=== PATIENT | female | born 1940 | race African-American/Black ===

== ENCOUNTER 2018-07-30 19:45 | Observation (INO) | payer OTHER ==
--- NOTE | 2018-07-30 20:23 | PDOC ---
Attending Attestation - HPI HPI: 07/30/18 21:48 The patient is a 78 year old female, with a significant PMH of stroke with left leg deficit, dementia (does not know year at baseline), hypothyroidism, hypertension, hyperlipidemia, presents to the emergency department for evaluation s/p syncopal event this evening. As per patient's grandson, the patient was sitting on the couch when she lost consciousness for 5 minutes. The patient endorses feeling warm prior to the syncopal event. As per grandson, the patient mouth was closed and she was shaking a small amount during the episode. The patient at presentation reports she now feels fine. The patient denies chest pain, shortness of breath, headache and dizziness. Denies fever, chills, nausea, vomit, diarrhea and constipation. Denies dysuria, frequency, urgency and hematuria. Allergies: NKA Documentation prepared by Sourav Mclain, acting as medical recruiter for Laverne Elias MD. <Sourav Mclain - Last Filed: 07/30/18 21:48> - Resident Resident Name: Davis Sotomayor - ED Attending Attestation I have performed the following: I have examined & evaluated the patient, The case was reviewed & discussed with the resident, I agree w/resident's findings & plan, Exceptions are as noted - Physicial Exam PE: GENERAL: Awake, alert, and oriented to person and place (not time), in no acute distress HEAD: No signs of trauma EYES: PERRLA, EOMI, sclera anicteric, conjunctiva clear ENT: Auricles normal inspection, hearing grossly normal, nares patent, oropharynx clear without exudates. Moist mucosa NECK: Normal ROM, supple, no lymphadenopathy, JVD, or masses LUNGS: Breath sounds equal, clear to auscultation bilaterally. No wheezes, and no crackles HEART: Regular rate and rhythm, normal S1 and S2, no murmurs, rubs or gallops ABDOMEN: Soft, nontender, normoactive bowel sounds. No guarding, no rebound. No masses EXTREMITIES: Normal range of motion, no edema. No clubbing or cyanosis. No cords, erythema, or tenderness NEUROLOGICAL: Cranial nerves II through XII grossly intact. Normal speech, normal gait. Motor and sensation intact. SKIN: Warm, Dry, normal turgor, no rashes or lesions noted. - Medical Decision Making Pt with syncopal event, described to briefly lose consciousness, stop breathing , and slight shaking of hands. She does not recall the events. No prior history of seizures. Will obtain cardiac workup, but will also obtain CTH based on unusual description. <Laverne Elias - Last Filed: 07/30/18 22:35>
[2018-07-30] MEDS ORDERED: SODIUM CHLORIDE 500 ML IV STA ×2 (20:27→23:25)
--- NOTE | 2018-07-30 20:49 | PDOC ---
History of Present Illness - General Chief Complaint: Lightheaded Stated Complaint: DIZZINESS Time Seen by Provider: 07/30/18 19:57 History Source: Patient Exam Limitations: No Limitations - History of Present Illness Initial Comments: 07/30/18 20:43 Patient is 78F with history of stroke with L leg deficit, dementia (does not know year at baseline), hypothyroidism, htn, hld here today after she "passed out" this evening. Patient's grandson at bedside states that she was sitting on the couch when she became unconscious for about 5 minutes. They state her jaw was closed shut and was shaking a small amount. Denies post ictal period. Patient endorses a feeling of warmth before passing out. Denies fevers, chills, nausea, vomiting. Denies chest pain, shortness of breath. Denies abdominal pain , dysuria. Denies history of PE, leg swelling. Patient states that she feels fine now. Grandson reports that she's eating less today. Past History - Past Medical History Allergies/Adverse Reactions: Allergies Allergy/AdvReac Type Severity Reaction Status Date / Time No Known Allergies Allergy Verified 07/30/18 19:53 - Suicide/Smoking/Psychosocial Hx Smoking History: Never smoked Have you smoked in the past 12 months: No Information on smoking cessation initiated: No Hx Alcohol Use: No Drug/Substance Use Hx: No Review of Systems - Review of Systems Comments:: 07/30/18 20:49 GENERAL/CONSTITUTIONAL: No fever or chills. No weakness. HEAD, EYES, EARS, NOSE AND THROAT: No change in vision. No sore throat. CARDIOVASCULAR: No chest pain or shortness of breath RESPIRATORY: No cough, wheezing, or hemoptysis. GASTROINTESTINAL: No nausea, vomiting, diarrhea or constipation. GENITOURINARY: No dysuria, frequency, or change in urination. MUSCULOSKELETAL: No joint or muscle swelling or pain. No neck or back pain. SKIN: No rash NEUROLOGIC: No headache, vertigo, +loss of consciousness, no change in strength/ sensation. ENDOCRINE: No increased thirst. No abnormal weight change HEMATOLOGIC/LYMPHATIC: No anemia, easy bleeding, or history of blood clots. ALLERGIC/IMMUNOLOGIC: No hives or skin allergy. *Physical Exam - Vital Signs Last Vital Signs Temp Pulse Resp BP Pulse Ox 97.6 F 61 18 146/51 L 98 07/30/18 19:53 07/30/18 19:53 07/30/18 19:53 07/30/18 19:53 07/30/18 19:53 - Physical Exam Comments: 07/30/18 20:50 GENERAL: Awake, alert, and oriented to self/place, not to year, in no acute distress HEAD: No signs of trauma, normocephalic, atraumatic EYES: PERRLA, EOMI, sclera anicteric, conjunctiva clear ENT: Auricles normal inspection, hearing grossly normal, nares patent, oropharynx clear without exudates. Moist mucosa NECK: Normal ROM, supple, no lymphadenopathy, JVD, or masses LUNGS: No distress, speaks full sentences, clear to auscultation bilaterally HEART: Regular rate and rhythm, normal S1 and S2, no murmurs, rubs or gallops, peripheral pulses normal and equal bilaterally. ABDOMEN: Soft, nontender, normoactive bowel sounds. No guarding, no rebound. No masses EXTREMITIES: Normal inspection, Normal range of motion, no edema. No clubbing or cyanosis. NEUROLOGICAL: Cranial nerves II through XII grossly intact. Normal speech, 3/5 strength in L leg, otherwise 5/5 SKIN: Warm, Dry, normal turgor, no rashes or lesions noted. Moderate Sedation - Procedure Monitoring Vital Signs: Procedure Monitoring Vital Signs Temperature 97.6 F 07/30/18 19:53 Pulse Rate 61 07/30/18 19:53 Respiratory Rate 18 07/30/18 19:53 Blood Pressure 146/51 L 07/30/18 19:53 O2 Sat by Pulse Oximetry (%) 98 07/30/18 19:53 ED Treatment Course - LABORATORY CBC & Chemistry Diagram: 07/30/18 21:50 07/30/18 21:50 - RADIOLOGY Radiology Studies Ordered: Category Date Time Status HEAD CT WITHOUT CONTRAST [CT] Stat CT Scan 07/30/18 20:33 Ordered CHEST PA & LAT [RAD] Stat Radiology 07/30/18 20:27 Ordered Medical Decision Making - Medical Decision Making 07/30/18 20:51 Patient is 78F here today with syncope. Vitals normal and stable. DDx includes, but is not limited to: acs, arrhythmia, vasovagal. Will workup with cardiac labs , ct head, cxr. Likely admit. 07/30/18 23:22 CBC normal. CMP shows Cr of 2.9, BUN 52. Troponin undetectable. Patient and grandson state that she's never been told that she has kidney issues before. EKG shows normal sinus rhythm with rate of 68. No st elevations/depressions. Normal axis. Normal intervals. No significant t wave abnormalities. No signs of brugada, wpw, long qtc. Medicine paged. 07/31/18 00:05 Case d/w Dr Tyler. Obs tele. *DC/Admit/Observation/Transfer Diagnosis at time of Disposition: Syncope, AFSHAN (acute kidney injury) - Discharge Dispostion Disposition: HOME Condition at time of disposition: Stable Decision to Admit order: Yes - Referrals - Patient Instructions - Post Discharge Activity
[2018-07-30 21:55] LABS: BASO % 0.4 % (0-2.0); EOS % 0.8 % (0-4.5); HEMATOCRIT 32.3 % (32.4-45.2); HEMOGLOBIN 11.1 GM/dL (10.7-15.3); LYMPH % 15.8 % (8-40); MCH 31.9 pg (25.7-33.7); MCHC 34.5 g/dl (32.0-36.0); MEAN CELL VOLUME 92.7 fl (80-96); MEAN PLT VOLUME 12.1 fl (7.5-11.1); MONO % 9.2 % (3.8-10.2); NEUT % 73.8 % (42.8-82.8); PLATELET COUNT 129 K/MM3 (134-434); RBC 3.48 M/mm3 (3.60-5.2); RDW 14.5 % (11.6-15.6)
[2018-07-30 22:08] LABS: INR 1.08 (0.83-1.09); PROTHROMBIN TIME (PATIENT) 12.8 SEC (9.7-13.0)
[2018-07-30 22:58] LABS: ALBUMIN 4.2 g/dl (3.4-5.0); ALK PHOS 62 U/L (45-117); ANION GAP 9 MMOL/L (8-16); BILIRUBIN,TOTAL 0.5 mg/dL (0.2-1); BLOOD UREA NITROGEN 52 mg/dL (7-18); CHLORIDE 107 mmol/L (98-107); CO2 21 mmol/L (21-32); CREATININE 2.9 mg/dL (0.55-1.3); GLUCOSE,RANDOM 130 mg/dL (74-106); MAGNESIUM 2.3 mg/dL (1.8-2.4); POTASSIUM 5.1 mmol/L (3.5-5.1); SGOT/AST 19 U/L (15-37); SGPT/ALT 23 U/L (13-61); SODIUM 137 mmol/L (136-145); TOT PROT 7.4 g/dl (6.4-8.2)
--- NOTE | 2018-07-30 23:51 | PN ---
Teaching Attending Note Name of Resident: Valerie Tyler ATTENDING PHYSICIAN STATEMENT I saw and evaluated the patient. I reviewed the resident's note and discussed the case with the resident. I agree with the resident's findings and plan as documented. CC: Syncope 2PM 07/30 when she was watching TV following dizziness. SUBJECTIVE: Seen and examined; please see resident note for additional historical information. She experienced a syncopal episode with prodromal sx of warmth, dizziness, headache when she was sitting in a chair watching TV (no distressing programming on). She had LOC for 'a minute or two' and came to without any confusion, tongue biting, incontenance, involuntary movement. She never had these sx before and this worried her. Grandson encouraged her to go to the hospital. Denies any CP, pressure, etc. In the ER she was bolused before orthostatics were checked. Mentioned b/l LE tenderness; no new edema (has chronic dependent edema) She is afebrile and hemodynamically stable. 10 sys ROS done and negative aside from HPI PMH and PSH reviewed (CVA, stated dementia, HTN, HLD, Hypothyroidism; prior thyroid surgery) FH asked and noncontributory Socially Medication list reviewed and is pending reconciliation OBJECTIVE: VS, labs, imaging reviewed NAD, AAO, resting in bed Labs show plts 129, Cr. 2.9, glu 130, CK 204. Negative troponin. EKG with NSR, LVH CT head prelim read shows no acute brain abnormaliies; age related changes and chronic R-occipital lobe infarct. ASSESSMENT AND PLAN: Patient presents with syncope; found to have elevated creatinine 1) Syncope -Check orthostatics, gently hydrate, monitor on telemetry -EKG negative, CT head negative. -Check echocardiogram; given HLD and old CVA has risks for vascular disease so check carotid duplex -Potential issue from medications but she doesn't know what she is on; we will phone her family to confirm med list and assess if any of these could be implicated. 2) Elevated Cr -Obtain FeUrea as not known if on diuretics, check Leonardo -obtain old records to compare to her baseline -Consult nephrology in AM 3) Thrombocytopenia -Check old records for baseline -Check Hep C and HIV; trend CBC. Likely can followup OP 4) Old CVA -CT shows chronic R-occipital infarct 5) HTN -Reconcile medications and continue what is clinically appropriate 6) HLD -Reconcile home meds; followup lipid pannel as OP FENA Full Code
[2018-07-31] MEDS ORDERED: SODIUM CHLORIDE 1,000 ML IV SCH (04:30)
--- NOTE | 2018-07-31 04:42 | HP ---
CHIEF COMPLAINT: syncope PCP: HISTORY OF PRESENT ILLNESS: 78 y/o F with PMH stroke (w resultant LLE weakness), ?dementia, hypothyroidism, HTN, HLD, who presents to the ED c/o syncopal event that happened at 2pm yesterday (07/30). States that she was sitting on a chair watching TV (law and order) when she felt warm, dizzy and developed a bad, global GOMEZ. Mentions that she kept telling her grandson she didn't feel right. Soon after, pt had LOC while still sitting for 1-2 minutes. Grandson told pt that she did not have tonic-clonic movements, tongue biting, or urinary incontinence. No chest pain. States that after the syncopal ep, she felt a knot in her R side which moved to her L. Yesterday AM, she also did not eat breakfast and felt very thirsty, asking her son for a drink of ice water. Denies current GOMEZ, fever, chills, SOB, chest pain or pressure, or changes in urinary or bowel function. Lives at home with her grandson. Uses a walker to ambulate. 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 Smoking: attempted in past however did not enjoy Alcohol: denies Drugs: denies Family History: mother- "blood clot in brain" Allergies No Known Allergies Allergy (Verified 07/30/18 19:53) HOME MEDICATIONS: does not know home meds, did not bring with her. need to call pharmacy, family and med rec REVIEW OF SYSTEMS CONSTITUTIONAL: Absent: fever, chills, diaphoresis, generalized weakness, malaise, loss of appetite, weight change HEENT: Absent: rhinorrhea, nasal congestion, throat pain, throat swelling, difficulty swallowing, mouth swelling, ear pain, eye pain, visual changes CARDIOVASCULAR: Absent: chest pain, syncope, palpitations, irregular heart rate, lightheadedness , peripheral edema RESPIRATORY: Absent: cough, shortness of breath, dyspnea with exertion, orthopnea, wheezing, stridor, hemoptysis GASTROINTESTINAL: Absent: abdominal pain, abdominal distension, nausea, vomiting, diarrhea, constipation, melena, hematochezia GENITOURINARY: Absent: dysuria, frequency, urgency, hesitancy, hematuria, flank pain, genital pain MUSCULOSKELETAL: Absent: myalgia, arthralgia, joint swelling, back pain, neck pain SKIN: Absent: rash, itching, pallor HEMATOLOGIC/IMMUNOLOGIC: Absent: easy bleeding, easy bruising, lymphadenopathy, frequent infections ENDOCRINE: Absent: unexplained weight gain, unexplained weight loss, heat intolerance, cold intolerance NEUROLOGIC: +GOMEZ, syncope Absent: headache, focal weakness or paresthesias, dizziness, unsteady gait, seizure, mental status changes, bladder or bowel incontinence PSYCHIATRIC: Absent: anxiety, depression, suicidal or homicidal ideation, hallucinations. PHYSICAL EXAMINATION Vital Signs 07/31/18 04:24 Temperature 98.0 F Pulse Rate Pulse Rate [ 64 Right Radial] Respiratory 17 Rate Blood Pressure Blood Pressure 150/64 [Left Arm] O2 Sat by Pulse 97 Oximetry (%) GENERAL: Very pleasant. Awake, alert, and fully oriented, in no acute distress. HEAD: Normal with no signs of trauma. EYES: Pupils equal, round and reactive to light, extraocular movements intact, sclera anicteric, conjunctiva clear. EARS, NOSE, THROAT: Ears normal, nares patent, oropharynx clear without exudates. Dry mucous membranes. NECK: Normal range of motion, supple. +horizontal scar from past thyroid sx LUNGS: Breath sounds equal, clear to auscultation bilaterally. No wheezes, and no crackles. No accessory muscle use. HEART: Regular rate and rhythm, normal S1 and S2 without murmur, rub or gallop. ABDOMEN: Soft, nontender, not distended, normoactive bowel sounds, no guarding, no rebound, no masses. LOWER EXTREMITIES: 2+ pt pulses, warm, well-perfused. With edema. states she has chronically NEUROLOGICAL: Cranial nerves II-XII intact. Sensation intact. PSYCHIATRIC: Cooperative. Good eye contact. Laboratory Results - last 24 hr 07/30/18 07/30/18 07/30/18 21:50 21:50 21:50 WBC 6.0 RBC 3.48 L Hgb 11.1 Hct 32.3 L MCV 92.7 MCH 31.9 MCHC 34.5 RDW 14.5 Plt Count 129 L MPV 12.1 H Absolute Neuts (auto) 4.4 Neutrophils % 73.8 Lymphocytes % 15.8 Monocytes % 9.2 Eosinophils % 0.8 Basophils % 0.4 Nucleated RBC % 0 PT with INR 12.80 INR 1.08 Sodium 137 Potassium 5.1 Chloride 107 Carbon Dioxide 21 Anion Gap 9 BUN 52 H Creatinine 2.9 H Creat Clearance w eGFR 15.69 Random Glucose 130 H Calcium 9.0 Magnesium 2.3 Total Bilirubin 0.5 AST 19 ALT 23 Alkaline Phosphatase 62 Creatine Kinase 304 H Creatine Kinase Index 1.0 CK-MB (CK-2) 3.3 Troponin I < 0.02 Total Protein 7.4 Albumin 4.2 EKG: NSR, with LVH as seen in avL. Qtc 442ms Head CT: no acute path; chronic R occipital infarct. however pending official report ASSESSMENT/PLAN: 78 y/o F with PMH stroke (w resultant LLE weakness), ?dementia, hypothyroidism, HTN, HLD, who presents to the ED c/o syncopal event that happened at 2pm yesterday (07/30). #Syncope -possible that it is vasovagal as endorsed GOMEZ, dizziness, feeling warm, thirsty prior to event. however also possible cardiogenic -will check ECHO to check valvular fnc -carotid duplex as pt with HLD, old stroke -orthostatics, IVF -confirm med list to determine if polypharmacy or drug interactions -tele monitoring #Elevated Cr: ?AFSHAN, ?CKD -unknown baseline; will need to get files from PMD -trend Cr -will give IVF. calculate Fena, renal sono -nephro consult; Dr. Anthony #Thrombocytopenia -without sepsis -f/u hep C, HIV testing #HTN-uncontrolled -c/w vaseretic #HLD -need to verify home meds #hypothyroidism -f/u TSH -c/w synthroid #F/E/N IV NS 100 cc/hr continue to follow lytes sodium controlled diet #PPX SCD's, early ambulation #Dispo tele obs Visit type - Emergency Visit Emergency Visit: Yes ED Registration Date: 07/30/18 Care time: The patient presented to the Emergency Department on the above date and was hospitalized for further evaluation of their emergent condition. - New Patient This patient is new to me today: Yes Date on this admission: 07/31/18 - Critical Care Critical Care patient: No
[2018-07-31 06:15] LABS: BASO % 0.4 % (0-2.0); EOS % 2.1 % (0-4.5); HEMATOCRIT 30.9 % (32.4-45.2); HEMOGLOBIN 10.1 GM/dL (10.7-15.3); LYMPH % 31.6 % (8-40); MCH 30.4 pg (25.7-33.7); MCHC 32.6 g/dl (32.0-36.0); MEAN CELL VOLUME 93.4 fl (80-96); MEAN PLT VOLUME 11.8 fl (7.5-11.1); MONO % 10.8 % (3.8-10.2); NEUT % 55.1 % (42.8-82.8); PLATELET COUNT 103 K/MM3 (134-434); RBC 3.31 M/mm3 (3.60-5.2); RDW 14.8 % (11.6-15.6); WHITE BLOOD COUNT 5.2 K/mm3 (4.0-10.0)
[2018-07-31 06:33] LABS: ANION GAP 9 MMOL/L (8-16); BLOOD UREA NITROGEN 49 mg/dL (7-18); CALCIUM 8.5 mg/dL (8.5-10.1); CHLORIDE 112 mmol/L (98-107); CO2 21 mmol/L (21-32); CREATININE 2.5 mg/dL (0.55-1.3); GLUCOSE,RANDOM 127 mg/dL (74-106); MAGNESIUM 2.1 mg/dL (1.8-2.4); PHOSPHOROUS 3.7 mg/dL (2.5-4.9); SODIUM 141 mmol/L (136-145)
[2018-07-31] MEDS: LEVOTHYROXINE NA 75 MCG TABLET (FP) PO SCH (07:56)
[2018-07-31] MEDS ORDERED: LEVOTHYROXINE NA 25 MCG TABLET (FP) ONE (07:59)
[2018-07-31 09:08] LABS: URINE APPEARANCE CLEAR; URINE BILIRUBIN NEGATIVE (<2.0 mg/dL); URINE COLOR LTYELLOW; URINE GLUCOSE (UA) NEGATIVE (NEGATIVE); URINE KETONE NEGATIVE (NEGATIVE); URINE LEUK ESTERASE 1+ (NEGATIVE); URINE NITRITE NEGATIVE (NEGATIVE); URINE PROTEIN NEGATIVE (NEGATIVE); URINE UROBILINOGEN NEGATIVE mg/dL (0.2-1.0)
[2018-07-31 09:26] LABS: EPI CELLS RARE /HPF (FEW); URINE MUCUS RARE
[2018-07-31] MEDS ORDERED: HYDROCHLOROTHIAZIDE 25 MG TABLET (FP) PO SCH (10:00)
[2018-07-31 10:41] LABS: URINE CREATININE 91.5 mg/dL (30-50)
[2018-07-31] MEDS: amLODIPine BESYLATE 5 MG TABLET (FP) PO SCH (11:30)
[2018-07-31] MEDS: ENALAPRIL MALEATE 10 MG TABLET (FP) PO SCH (11:30)
--- NOTE | 2018-07-31 12:23 | PN ---
Teaching Attending Note Name of Resident: Valerie Tyler ATTENDING PHYSICIAN STATEMENT I saw and evaluated the patient. I reviewed the resident's note and discussed the case with the resident. I agree with the resident's findings and plan as documented. Evaluated the patient today. She is a 78Y/O F hx OF htn, hx of CVA in the past, She states that she was in her USH till yesterday. She was in her USH, sitting in the chair, suddenly with no trigger, developed lightheadedness, feeling hot in her face and head, denies any palpitation, N/V, SOB prior to the episode. She felt lightheaded after that episode tried to sit up and ask the grandson to bring her some ice water but she had passed out before she drank the water, for couple of minutes. no seizure like activity was observed. She states that she has had never had similar episode before. denies any trigger for the episode.states that since she has been told that she has had a CVA she is not stable and does not walk much and her ET has decreased for 1 year as she develops OSORIO. She also states that has had 2 episode of feeling fluttering in the left chest wall for couple of seconds in the past 3 days.but has had no complaints with them denies any change in her medication, diet, weight loss, no GI/ complaints She is adherent to her Bp meds, not on statin and ASA. denies hx of GI complaints in the past. She is in no distress at this time. pHex:.vs She is in no distress Talks in full sentences Has no orthosthatic changes in VS CVS:S1S2, Could not appreciate any murmur CTAB Abd: BS NT/ND 2+ DP pulses 1+ tp b/l EQUAL denies any change in her strength in the limbs Last Vital Signs Temp Pulse Resp BP Pulse Ox 98.5 F 60 18 143/63 99 07/31/18 11:00 07/31/18 11:00 07/31/18 11:00 07/31/18 11:00 07/31/18 11:00 CBCD WBC 5.2 K/mm3 (4.0-10.0) 07/31/18 05:49 RBC 3.31 M/mm3 (3.60-5.2) L 07/31/18 05:49 Hgb 10.1 GM/dL (10.7-15.3) L 07/31/18 05:49 Hct 30.9 % (32.4-45.2) L 07/31/18 05:49 MCV 93.4 fl (80-96) 07/31/18 05:49 MCHC 32.6 g/dl (32.0-36.0) 07/31/18 05:49 RDW 14.8 % (11.6-15.6) 07/31/18 05:49 Plt Count 103 K/MM3 (134-434) L D 07/31/18 05:49 MPV 11.8 fl (7.5-11.1) H 07/31/18 05:49 CMP Sodium 141 mmol/L (136-145) 07/31/18 05:49 Potassium 4.0 mmol/L (3.5-5.1) 07/31/18 05:49 Chloride 112 mmol/L (98-107) H 07/31/18 05:49 Carbon Dioxide 21 mmol/L (21-32) 07/31/18 05:49 Anion Gap 9 MMOL/L (8-16) 07/31/18 05:49 BUN 49 mg/dL (7-18) H 07/31/18 05:49 Creatinine 2.5 mg/dL (0.55-1.3) H 07/31/18 05:49 Creat Clearance w eGFR 18.63 (>60) 07/31/18 05:49 Random Glucose 127 mg/dL (74-106) H 07/31/18 05:49 Calcium 8.5 mg/dL (8.5-10.1) 07/31/18 05:49 Total Bilirubin 0.5 mg/dL (0.2-1) 07/30/18 21:50 AST 19 U/L (15-37) 07/30/18 21:50 ALT 23 U/L (13-61) 07/30/18 21:50 Alkaline Phosphatase 62 U/L (45-117) 07/30/18 21:50 Total Protein 7.4 g/dl (6.4-8.2) 07/30/18 21:50 Albumin 4.2 g/dl (3.4-5.0) 07/30/18 21:50 CARDIAC ENZYMES Creatine Kinase 305 IU/L (26-192) H 07/31/18 10:00 Troponin I < 0.02 ng/ml (0.00-0.05) 07/31/18 10:00 Home Medications Medication Instructions Recorded Amlodipine Besylate 5 mg PO DAILY 07/31/18 Enalapril/Hydrochlorothiazide 1 each PO DAILY 07/31/18 [Vaseretic 10-25 mg Tablet] Levothyroxine Sodium [Levo-T] 75 mcg PO DAILY 07/31/18 could not find the EKG in the patient chart hct: NO NEW ISCHEMIA A&P: 78 Y/o F W HTN, hx OF CVS, hypothyroidism, P/W an episode of LOC most likely Syncope. Troponin (-)x3, pending EKG follow up. pending TTE, admit to tele and holter monitoring, cardiology consult, less likely to be hypoglycemia, hypotension and dehydration as her symptoms resolved with no intervention which makes arrhythmia most likely cause. renal failure: Has elevated BUN/CR which is improving with hydration, will give another 1l NS Katina nad recheck the BMP in the evening. Hypothyroidism: will C/W home medication HX pof CVA and hTN: not on statin and not on aspiring: will start on ASA and low dose statin, sending lipid profile FC DIet: cardiac Dispo: home after further evaluation
[2018-07-31] MEDS ORDERED: SODIUM CHLORIDE 1,000 ML IV STA ×2 (12:48→12:50)
--- NOTE | 2018-07-31 13:25 | EKG ---
Test Reason : Blood Pressure : / mmHG Vent. Rate : 055 BPM Atrial Rate : 055 BPM P-R Int : 238 ms QRS Dur : 114 ms QT Int : 440 ms P-R-T Axes : 059 -23 019 degrees QTc Int : 420 ms SINUS BRADYCARDIA WITH 1ST DEGREE A-V BLOCK MODERATE VOLTAGE CRITERIA FOR LVH, MAY BE NORMAL VARIANT BORDERLINE ECG WHEN COMPARED WITH ECG OF 30-JUL-2018 23:15, IN INTERVAL HAS INCREASED Confirmed by COREEN BERMAN, FRANSICO ([id number]) on 07/31/2018 1:25:19 PM Referred By: Agustin WATT Confirmed By:FRANSICO ANGELA MD
--- NOTE | 2018-07-31 13:26 | EKG ---
Test Reason : Blood Pressure : / mmHG Vent. Rate : 068 BPM Atrial Rate : 068 BPM P-R Int : 206 ms QRS Dur : 104 ms QT Int : 416 ms P-R-T Axes : 036 -23 039 degrees QTc Int : 442 ms POOR DATA QUALITY, INTERPRETATION MAY BE ADVERSELY AFFECTED NORMAL SINUS RHYTHM VOLTAGE CRITERIA FOR LEFT VENTRICULAR HYPERTROPHY ABNORMAL ECG NO PREVIOUS ECGS AVAILABLE Confirmed by FRANSCIO ANGELA MD ([id number]) on 07/31/2018 1:26:37 PM Referred By: Confirmed By:FRANSICO ANGELA MD
[2018-07-31] MEDS: ASPIRIN COATED 81 MG TABLET.EC PO SCH (14:59)
--- NOTE | 2018-07-31 18:10 | CONSULT ---
Consult Consult Specialty:: Nephrology Reason for Consultation:: AFSHAN - History of Present Illness Chief Complaint: syncope History of Present Illness: Pt is a 78 year old female with pmhx of CVA, dementia, hypothyroidism, HTN, and HLD who presents to the ER after a syncopal episode. She remembers passing out. She lost consciousness of about 5 minutes. I was called to evaluate her for elevated. She does not know if she has history of CKD. There are no old labs in the system to compare to. She denies dysuria or hematuria. She denies chest pain or shortness of breath. 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 Cardio/Vascular: Yes: HTN Endocrine: Yes: Hypothyroidism - Alcohol/Substance Use Hx Alcohol Use: No - Smoking History Smoking history: Never smoked Have you smoked in the past 12 months: No Home Medications - Allergies Allergies/Adverse Reactions: Allergies Allergy/AdvReac Type Severity Reaction Status Date / Time No Known Allergies Allergy Verified 07/30/18 19:53 - Home Medications Home Medications: Ambulatory Orders Amlodipine Besylate 5 mg PO DAILY 07/31/18 Enalapril/Hydrochlorothiazide [Vaseretic 10-25 mg Tablet] 1 each PO DAILY Levothyroxine Sodium [Levo-T] 75 mcg PO DAILY 07/31/18 Family Disease History - Family Disease History Family History: Denies Review of Systems - Review of Systems Constitutional: reports: No Symptoms Eyes: reports: No Symptoms HENT: reports: No Symptoms Neck: reports: No Symptoms Cardiovascular: reports: No Symptoms Respiratory: reports: No Symptoms Gastrointestinal: reports: No Symptoms Genitourinary: reports: No Symptoms Musculoskeletal: reports: No Symptoms Integumentary: reports: No Symptoms Neurological: reports: Change in LOC Endocrine: reports: No Symptoms Hematology/Lymphatic: reports: No Symptoms Psychiatric: reports: No Symptoms Physical Exam Vital Signs: Vital Signs Temperature 98.5 F 07/31/18 11:00 Pulse Rate 60 07/31/18 11:00 Respiratory Rate 18 07/31/18 11:00 Blood Pressure 143/63 07/31/18 11:00 O2 Sat by Pulse Oximetry (%) 99 07/31/18 11:00 Constitutional: Yes: Calm Eyes: Yes: Conjunctiva Clear HENT: Yes: Atraumatic Neck: Yes: Supple Cardiovascular: Yes: S1, S2 Respiratory: Yes: CTA Bilaterally Gastrointestinal: Yes: Soft Renal/: Yes: WNL Musculoskeletal: Yes: WNL Edema: No Neurological: Yes: Oriented, Confusion Psychiatric: Yes: Oriented Labs: CBC, BMP 07/31/18 05:49 07/31/18 05:49 Laboratory Tests 07/30/18 07/30/18 07/31/18 21:50 21:50 05:49 Hgb 11.1 10.1 L Potassium Chloride Creatinine 2.9 H Urine Protein Urine Blood 07/31/18 07/31/18 05:49 08:40 Hgb Potassium 4.0 Chloride 112 H Creatinine 2.5 H Urine Protein Negative Urine Blood Negative Imaging - Results Ultrasound: Report Reviewed Problem List - Problems (1) HTN (hypertension) Code(s): I10 - ESSENTIAL (PRIMARY) HYPERTENSION (2) AFSHAN (acute kidney injury) Code(s): N17.9 - ACUTE KIDNEY FAILURE, UNSPECIFIED (3) Syncope Code(s): R55 - SYNCOPE AND COLLAPSE Assessment/Plan Current Medications Generic Name Dose Route Start Last Admin Trade Name Magnoq PRN Reason Stop Dose Admin Amlodipine Besylate 5 mg 07/31/18 10:00 07/31/18 11:30 Norvasc - PO 5 mg DAILY [facility] Administration Aspirin 81 mg 07/31/18 13:00 07/31/18 14:59 Ecotrin - PO 81 mg DAILY OLGA Administration Atorvastatin Calcium 40 mg 07/31/18 22:00 Lipitor - PO HS OLGA Enalapril Maleate 10 mg 07/31/18 10:00 07/31/18 11:30 Vasotec - PO 10 mg DAILY OL[facility] Administration Hydrochlorothiazide 25 mg 07/31/18 10:00 07/31/18 11:30 Hctz - PO 25 mg DAILY OLGA Administration Sodium Chloride 1,000 mls @ 100 mls/hr 07/31/18 04:30 07/31/18 04:51 Normal Saline - IV 100 mls/hr ASDIR OLGA Administration Levothyroxine Sodium 75 mcg 07/31/18 07:15 07/31/18 07:56 Synthroid - PO 75 mcg DAILY@0700 OL[facility] Administration Impression 1. AFSHAN 2. HTN 3. syncope 4. dementia 5. hx cva Plan - hold hctz as she is getting fluids - renal function is improving - can change fluids to 1/2 ns - kidney echogenic on ultrasound - ua negative for blood or protein - repeat labs in am - will need outpt renal workup
[2018-07-31] MEDS ORDERED: SODIUM CHLORIDE 0.45% 1,000 ML IV SCH (18:15)
[2018-07-31 19:35] LABS: ANION GAP 6 MMOL/L (8-16); BLOOD UREA NITROGEN 40 mg/dL (7-18); CALCIUM 8.7 mg/dL (8.5-10.1); CHLORIDE 114 mmol/L (98-107); CO2 24 mmol/L (21-32); CREATININE 2.3 mg/dL (0.55-1.3); GLUCOSE,RANDOM 95 mg/dL (74-106); POTASSIUM 4.5 mmol/L (3.5-5.1); SODIUM 144 mmol/L (136-145)
[2018-08-01] MEDS ORDERED: ATORVASTATIN CA 40 MG TABLET (FP) ONE (00:38)
[2018-08-01] MEDS: ATORVASTATIN CA 40 MG TABLET (FP) PO SCH ×2 (00:38→21:32)
[2018-08-01 06:16] LABS: ANION GAP 7 MMOL/L (8-16); BLOOD UREA NITROGEN 34 mg/dL (7-18); CALCIUM 8.7 mg/dL (8.5-10.1); CHLORIDE 112 mmol/L (98-107); CO2 23 mmol/L (21-32); CREATININE 1.8 mg/dL (0.55-1.3); GLUCOSE,RANDOM 90 mg/dL (74-106); POTASSIUM 4.7 mmol/L (3.5-5.1); SODIUM 142 mmol/L (136-145)
[2018-08-01 08:47] LABS: CHOLESTEROL 261 mg/dL (50-200); HDL CHOLESTEROL 32 mg/dL (40-60); LDL CHOLESTEROL (ONLY DFH) 213 mg/dl (0-100); TRIGLYCERIDES 82 mg/dL (0-150)
--- NOTE | 2018-08-01 11:24 | PN ---
Physical Exam: SUBJECTIVE: Patient seen and examined OBJECTIVE: Vital Signs Period Temp Pulse Resp BP Sys/Carmen Pulse Ox Last 24 Hr 98.6 F 58 18 150/58 99 GENERAL: The patient is awake, alert, and fully oriented, in no acute distress. HEAD: Normal with no signs of trauma. CVS:S1S2 CTAB ABD: BS+ NT/ND EXT: NO EDEMA 1+ DP pulses B/L Laboratory Results - last 24 hr 07/31/18 07/31/18 08/01/18 10:00 18:50 05:08 Sodium 144 142 Potassium 4.5 4.7 Chloride 114 H 112 H Carbon Dioxide 24 23 Anion Gap 6 L 7 L BUN 40 H 34 H Creatinine 2.3 H 1.8 H Creat Clearance w eGFR 20.51 27.21 Random Glucose 95 90 Calcium 8.7 8.7 Creatine Kinase 305 H Creatine Kinase Index 1.0 CK-MB (CK-2) 3.2 Troponin I < 0.02 Triglycerides 82 Cholesterol 261 H Total LDL Cholesterol 213 H HDL Cholesterol 32 L Active Medications Generic Name Dose Route Start Last Admin Trade Name Magnoq PRN Reason Stop Dose Admin Amlodipine Besylate 5 mg 07/31/18 10:00 07/31/18 11:30 Norvasc - PO 5 mg DAILY OLGA Administration Aspirin 81 mg 07/31/18 13:00 07/31/18 14:59 Ecotrin - PO 81 mg DAILY OLGA Administration Atorvastatin Calcium 40 mg 07/31/18 22:00 08/01/18 00:38 Lipitor - PO 40 mg HS OLGA Administration Enalapril Maleate 10 mg 07/31/18 10:00 07/31/18 11:30 Vasotec - PO 10 mg DAILY OLGA Administration Levothyroxine Sodium 75 mcg 07/31/18 07:15 07/31/18 07:56 Synthroid - PO 75 mcg DAILY@0700 OLGA Administration ASSESSMENT/PLAN: 78 Y/o F W HTN, hx OF CVS, hypothyroidism, P/W an episode of LOC most likely Syncope. Troponin (-)x3, pending EKG follow up. pending TTE, admit to tele and holter monitoring, cardiology consult, less likely to be hypoglycemia, hypotension and dehydration as her symptoms resolved with no intervention which makes arrhythmia most likely cause. renal failure: Has elevated BUN/CR which is improving with hydration, will hold diuretics and ACEI at this time and will restart likely tomorrow after BMP further improves. nephrology recs appreciated. will have her F/U as O.P with nephro. Hypothyroidism: will C/W home medication HX of CVA and hTN: not on statin and not on aspirin: has been started on ASA and low dose statin(07/31) HLd: lipid profile ABML will C/W atorvastatin 40 mg Qhs at this time. FC DIet: cardiac Dispo: home after further evaluation Visit type - Emergency Visit Emergency Visit: No - New Patient This patient is new to me today: No - Critical Care Critical Care patient: No - Discharge Referral Referred to [facility] Med P.C[facility] No
[2018-08-01] MEDS ORDERED: ENALAPRIL MALEATE 5 MG TABLET (FP) ONE (12:41)
[2018-08-01] MEDS ORDERED: amLODIPine BESYLATE 5 MG TABLET (FP) ONE (12:41)
[2018-08-01] MEDS ORDERED: ASPIRIN COATED 81 MG TABLET.EC ONE (12:41)
[2018-08-01] MEDS ORDERED: LEVOTHYROXINE NA 25 MCG TABLET (FP) ONE (12:42)
[2018-08-01] MEDS: LEVOTHYROXINE NA 75 MCG TABLET (FP) PO SCH (13:44)
[2018-08-01] MEDS: ASPIRIN COATED 81 MG TABLET.EC PO SCH (13:44)
[2018-08-01] MEDS: amLODIPine BESYLATE 5 MG TABLET (FP) PO SCH (13:44)
[2018-08-01] MEDS: ENALAPRIL MALEATE 10 MG TABLET (FP) PO SCH (13:44)
[2018-08-01 14:41] VITALS: BMI 27.3
--- NOTE | 2018-08-01 15:00 | PN ---
Progress Note, Physician History of Present Illness: Pt seen and examined at bedside. She is awake and alert. She is eager to go home. She denies shortness of breath. - Current Medication List Current Medications: Active Medications Amlodipine Besylate (Norvasc -) 5 mg PO DAILY [facility] Last Admin: 08/01/18 13:44 Dose: 5 mg Aspirin (Ecotrin -) 81 mg PO DAILY [facility] Last Admin: 08/01/18 13:44 Dose: 81 mg Atorvastatin Calcium (Lipitor -) 40 mg PO HS [facility] Last Admin: 08/01/18 00:38 Dose: 40 mg Enalapril Maleate (Vasotec -) 10 mg PO DAILY [facility] Last Admin: 08/01/18 13:44 Dose: 10 mg Levothyroxine Sodium (Synthroid -) 75 mcg PO DAILY@0700 [facility] Last Admin: 08/01/18 13:44 Dose: 75 mcg - Objective Vital Signs: Vital Signs Temperature 98.6 F 07/31/18 17:35 Pulse Rate 72 08/01/18 12:27 Respiratory Rate 18 08/01/18 12:27 Blood Pressure 142/80 08/01/18 12:27 O2 Sat by Pulse Oximetry (%) 99 07/31/18 17:35 Constitutional: Yes: Calm Eyes: Yes: Conjunctiva Clear HENT: Yes: Atraumatic Neck: Yes: Supple Cardiovascular: Yes: S1, S2 Respiratory: Yes: CTA Bilaterally Gastrointestinal: Yes: Soft Genitourinary: Yes: WNL Musculoskeletal: Yes: WNL Neurological: Yes: Oriented Psychiatric: Yes: Oriented Labs: CBC, BMP 07/31/18 05:49 08/01/18 05:08 INR, PTT INR 1.08 (0.83-1.09) 07/30/18 21:50 Problem List - Problems (1) HTN (hypertension) Code(s): I10 - ESSENTIAL (PRIMARY) HYPERTENSION (2) AFSHAN (acute kidney injury) Code(s): N17.9 - ACUTE KIDNEY FAILURE, UNSPECIFIED (3) Syncope Code(s): R55 - SYNCOPE AND COLLAPSE Assessment/Plan Current Medications Generic Name Dose Route Start Last Admin Trade Name Freq PRN Reason Stop Dose Admin Amlodipine Besylate 5 mg 07/31/18 10:00 08/01/18 13:44 Norvasc - PO 5 mg DAILY [facility] Administration Aspirin 81 mg 07/31/18 13:00 08/01/18 13:44 Ecotrin - PO 81 mg DAILY [facility] Administration Atorvastatin Calcium 40 mg 07/31/18 22:00 08/01/18 00:38 Lipitor - PO 40 mg HS OLGA Administration Enalapril Maleate 10 mg 07/31/18 10:00 08/01/18 13:44 Vasotec - PO 10 mg DAILY [facility] Administration Levothyroxine Sodium 75 mcg 07/31/18 07:15 08/01/18 13:44 Synthroid - PO 75 mcg DAILY@0700 [facility] Administration Impression 1. AFSHAN 2. HTN 3. syncope 4. dementia 5. hx cva Plan - renal function is improving - repeat labs in am - bp is stable - will keep thiazide on hold - kidney echogenic on ultrasound - ua negative for blood or protein - will need outpt renal workup
--- NOTE | 2018-08-01 16:58 | CON.CARD ---
Consult Consult Specialty:: Cardiology Reason for Consultation:: Syncope - History of Present Illness Chief Complaint: LOC History of Present Illness: This is a 78 year old female with a PMH of a stroke ith left leg deficit, dementia (does not know year at baseline), hypothyroidism, hypertension, and hyperlipidemia. She was with her grandson, and was sitting on the couch, apparently she had a LOC for five minutes but does not recall the event. As per grandson, the patient mouth was closed and she was shaking a small amount during the episode. The patient remains asymptomatic. BUN was 52 and Cr 2.9 on admission. 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 Cardio/Vascular: Yes: HTN ...: No Endocrine: Yes: Hypothyroidism - Alcohol/Substance Use Hx Alcohol Use: No - Smoking History Smoking history: Never smoked Have you smoked in the past 12 months: No Home Medications - Allergies Allergies/Adverse Reactions: Allergies Allergy/AdvReac Type Severity Reaction Status Date / Time No Known Allergies Allergy Verified 07/30/18 19:53 - Home Medications Home Medications: Ambulatory Orders Amlodipine Besylate 5 mg PO DAILY 07/31/18 Enalapril/Hydrochlorothiazide [Vaseretic 10-25 mg Tablet] 1 each PO DAILY Levothyroxine Sodium [Levo-T] 75 mcg PO DAILY 07/31/18 Vital Signs: Vital Signs Temperature 98.6 F 07/31/18 17:35 Pulse Rate 72 08/01/18 12:27 Respiratory Rate 18 08/01/18 12:27 Blood Pressure 142/80 08/01/18 12:27 O2 Sat by Pulse Oximetry (%) 99 07/31/18 17:35 Constitutional: Yes: No Distress Eyes: Yes: WNL HENT: Yes: WNL Respiratory: Yes: CTA Bilaterally Gastrointestinal: Yes: Normal Bowel Sounds Cardiovascular: Yes: Regular Rate and Rhythm Heart Sounds: Yes: S1, S2 (No MRHG) Extremities: Yes: WNL Edema: No Neurological: Yes: Alert (Past deficits) - Other Data Labs, Other Data: CBC, BMP 07/31/18 05:49 08/01/18 05:08 INR, PTT INR 1.08 (0.83-1.09) 07/30/18 21:50 Assessment/Plan 78 year old female with a PMH of a stroke ith left leg deficit, dementia (does not know year at baseline), hypothyroidism, hypertension, and hyperlipidemia. She was with her grandson, and was sitting on the couch, apparently she had a LOC for five minutes but does not recall the event. As per grandson, the patient mouth was closed and she was shaking a small amount during the episode. The patient remains asymptomatic. BUN was 52 and Cr 2.9 on admission. EKG Sinus bradycardia ar 55 BPM Syncope Brief episode May be related to dehydration (BUN was 52 and Cr 2.9 on admission) which makes vasovagal events more likely. Would encourage PO hydration Obtain and echocardiogram 24 hours of cardiac monitoring HTN Continue Amlodipine and lisinopril
[2018-08-02] MEDS: LEVOTHYROXINE NA 75 MCG TABLET (FP) PO SCH (06:08)
--- NOTE | 2018-08-02 07:41 | PN ---
Teaching Attending Note ATTENDING PHYSICIAN STATEMENT I saw and evaluated the patient. I reviewed the resident's note and discussed the case with the resident. I agree with the resident's findings and plan as documented. SUBJECTIVE:She is in no distress, OBJECTIVE: Last Vital Signs Temp Pulse Resp BP Pulse Ox 97.9 F 55 L 18 141/74 98 08/02/18 06:00 08/02/18 06:00 08/02/18 06:00 08/02/18 06:00 08/01/18 21:00 in no distress, very pleasant F CVS:S1S2 CTAB ABd: BS+ nt/nd ASSESSMENT AND PLAN: 78 Y/o F W HTN, hx OF CVS, hypothyroidism, P/W an episode of LOC most likely Syncope. Troponin (-)x3, pending EKG follow up. pending TTE, admit to tele and holter monitoring, cardiology consult appreciated to be DCed today after the Echo and final holter read with plan for F/u as O/P. per cardio note likely an episode of vasovagal in combination of dehydration. renal failure: is improving, likely in the setting of dehydration. will consider restarting lisinopril and HCTZ pending results of the renal function today. Hypothyroidism: will C/W home medication HX of CVA and hTN: not on statin and not on aspirin: has been started on ASA and low dose statin(07/31) HLd: lipid profile ABNL will C/W atorvastatin 40 mg Qhs at this time. FC DIet: cardiac Dispo: home after further evaluation
[2018-08-02] MEDS ORDERED: amLODIPine BESYLATE 10 MG TABLET (FP) PO SCH (08:42)
[2018-08-02 08:44] LABS: ANION GAP 7 MMOL/L (8-16); BLOOD UREA NITROGEN 25 mg/dL (7-18); CALCIUM 9.2 mg/dL (8.5-10.1); CHLORIDE 112 mmol/L (98-107); CO2 23 mmol/L (21-32); CREATININE 1.5 mg/dL (0.55-1.3); GLUCOSE,RANDOM 95 mg/dL (74-106); POTASSIUM 4.7 mmol/L (3.5-5.1); SODIUM 142 mmol/L (136-145)
[2018-08-02] MEDS: ASPIRIN COATED 81 MG TABLET.EC PO SCH (09:49)
[2018-08-02 09:56] VITALS: PULSE 60
--- NOTE | 2018-08-02 12:15 | HOL ---
Hook-up date: 2018-07-31 15:39:00 Duration: 23:27:00 Test Indications: SYNCOPE Medications: 88759 QRS complexes 171 Ventricular ectopics which represent <1 % of total QRS comp. 87 Supraventricular ectopics which represent <1 % of total QRS comp. * Paced QRS complexs which represent % of total QRS comp. * % of Time Classified as Noise VENTRICULAR ECTOPY 166 Isolated 6 Bigeminal Cycles 1 Couplets 0 Runs 0 Beats in Runs * Beats LONGEST at * BPM at :: -- * Beats FASTEST at * BPM at :: -- SUPRAVENTRICULAR ECTOPY 79 Isolated 4 Couplets 0 Runs 0 Beats in Runs * Beats LONGEST at * BPM at :: -- * Beats FASTEST at * BPM at :: -- HEART RATES 39 MIN at 10:55:15 2018-08-01 57 AVG 85 MAX at 11:38:57 2018-08-01 LONGEST RR 1.688 secs at 09:08:15 2018-08-01 SCANNED BY: YOVANY 08/01/18 1. BASELINE RHYTHM APPEARS TO BE SINUS WITH AVERAGE HR OF 57 BPM. RATES VARIED FROM39 BPM TO 89 BPM 2. OCCASIONAL VENTRICULAR ECTOPIES INCLUDING 166 PVCS AND 1 VENTRICULAR COUPLET 3. OCCASIONAL ATRIAL ECTOPIES INCLUDING 79 APCS AND 4 ATRIAL COUPLETS 4. NO SIGNIFICANT ST-T ABNORMALITIES 5. DIARY WAS NOT SUBMITTED Confirmed by CAMDEN HUMPHRIES MD ([id number]) on 08/02/2018 12:15:07 PM Referred By: Agustin ROBERTSON Overread By: CAMDEN HUMPHRIES MD
--- NOTE | 2018-08-02 14:15 | ECHO ---
Name: ANTONI SAWYER Exam:Adult Echocardiogram Study Date: 08/02/2018 08:27 AM Age: 78 yrs Reason For Study: SYNCOPE Height: 67 in Weight: 165 lb BSA: 1.9 m2 MMode/2D Measurements & Calculations IVSd: 0.82 cm Ao root diam: 3.4 cm LVIDd: 5.7 cm LA dimension: 4.0 cm LVIDs: 3.3 cm ACS: 2.0 cm LVPWd: 0.82 cm IVSs: 1.4 cm LVPWs: 1.3 cm EDV(Teich): 161.2 ml ESV(Teich): 43.9 ml Doppler Measurements & Calculations MV E max [place]: 92.5 cm/sec Ao V2 max: 105.2 cm/sec MV A max [place]: 82.7 cm/sec Ao max P.4 mmHg MV E/A: 1.1 Ao V2 mean: 68.5 cm/sec Ao mean P.2 mmHg Ao V2 VTI: 24.8 cm MR max [place]: 507.7 cm/sec TR max [place]: 215.4 cm/sec MR max P.4 mmHg TR max P.6 mmHg Med Peak E' [place]: 5.5 cm/sec Med E/e': 17.0 Lat Peak E' [place]: 8.3 cm/sec Lat E/e': 11.2 Procedure A complete two-dimensional transthoracic echocardiogram was performed (2D, M-mode, Doppler and color flow Doppler). Left Ventricle The left ventricle is normal in size. Left ventricular systolic function is normal. Ejection Fraction = 60- 65%. Diastolic dysfunction, Grade II, consistent with elevated left atrial pressure. Ratio E/E'= 16. No regional wall motion abnormalities noted. Right Ventricle The right ventricle is normal size. The right ventricular systolic function is normal. Atria The left atrium is mildly dilated. Right atrial size is normal. Mitral Valve There is mild mitral annular calcification. There is mild to moderate mitral regurgitation. Tricuspid Valve The tricuspid valve is normal in structure and function. There is mild tricuspid regurgitation. Right ventricular systolic pressure is normal. Aortic Valve The aortic valve is normal in structure and function. Mild aortic regurgitation. Pulmonic Valve The pulmonic valve is not well visualized. Great Vessels The aortic root is normal size. Pericardium/Pleura There is no pericardial effusion. Interpretation Summary The left ventricle is normal in size. Left ventricular systolic function is normal. No regional wall motion abnormalities noted. Ejection Fraction = 60-65%. Diastolic dysfunction, Grade II, consistent with elevated left atrial pressure. Ratio E/E'= 16 The right ventricular systolic function is normal. The left atrium is mildly dilated. Right atrial size is normal. There is mild mitral annular calcification. There is mild to moderate mitral regurgitation. There is mild tricuspid regurgitation. Right ventricular systolic pressure is normal. Mild aortic regurgitation. There is no pericardial effusion. Previous study is not available for comparison Lj Vazquez MD 08/02/2018 02:14 PM
[2018-08-02 14:29] VITALS: BP 130/69; TEMP 98.8
--- NOTE | 2018-08-02 14:39 | PN ---
Progress Note, Physician Chief Complaint: No complaints No events on tele/sinus Echo normal LVEF and no significant valve disease History of Present Illness: 78 year old female with a PMH of a stroke ith left leg deficit, dementia (does not know year at baseline), hypothyroidism, hypertension, and hyperlipidemia. She was with her grandson, and was sitting on the couch, apparently she had a LOC for five minutes but does not recall the event. As per grandson, the patient mouth was closed and she was shaking a small amount during the episode. The patient remains asymptomatic. BUN was 52 and Cr 2.9 on admission. EKG Sinus bradycardia ar 55 BPM - Current Medication List Current Medications: Active Medications Amlodipine Besylate (Norvasc -) 10 mg PO DAILY [facility] Last Admin: 08/02/18 09:49 Dose: 10 mg Aspirin (Ecotrin -) 81 mg PO DAILY [facility] Last Admin: 08/02/18 09:49 Dose: 81 mg Atorvastatin Calcium (Lipitor -) 40 mg PO HS [facility] Last Admin: 08/01/18 21:32 Dose: 40 mg Levothyroxine Sodium (Synthroid -) 75 mcg PO DAILY@0700 [facility] Last Admin: 08/02/18 06:08 Dose: 75 mcg - Objective Vital Signs: Vital Signs Temperature 98.8 F 08/02/18 13:28 Pulse Rate 60 08/02/18 13:28 Respiratory Rate 16 08/02/18 13:28 Blood Pressure 130/69 08/02/18 13:28 O2 Sat by Pulse Oximetry (%) 98 08/02/18 09:00 Constitutional: Yes: No Distress Neck: Yes: Supple Cardiovascular: Yes: Regular Rate and Rhythm, S1, S2. No: JVD Respiratory: Yes: CTA Bilaterally Edema: No Labs: CBC, BMP 07/31/18 05:49 08/02/18 07:50 INR, PTT INR 1.08 (0.83-1.09) 07/30/18 21:50 Assessment/Plan 78 year old female with a PMH of a stroke ith left leg deficit, dementia (does not know year at baseline), hypothyroidism, hypertension, and hyperlipidemia. She was with her grandson, and was sitting on the couch, apparently she had a LOC for five minutes but does not recall the event. As per grandson, the patient mouth was closed and she was shaking a small amount during the episode. The patient remains asymptomatic. BUN was 52 and Cr 2.9 on admission. EKG Sinus bradycardia ar 55 BPM Syncope Brief episode May be related to dehydration (BUN was 52 and Cr 2.9 on admission) which makes vasovagal events more likely. Cr has improved and now down to 1.5. Would encourage PO hydration Echocardiogram with normal LVEF and no significant valve disease Tele: sinus with no significant events HTN Continue Amlodipine and lisinopril Will sign off at this time. Can follow up with Dr. Ellis [phone]
--- NOTE | 2018-08-02 14:57 | DS ---
Physical Exam: SUBJECTIVE: Patient seen and examined this AM. She states that she is feeling well and would like to go home today. OBJECTIVE: Vital Signs Period Temp Pulse Resp BP Sys/Carmen Pulse Ox Last 24 Hr 97.5 F-98.8 F 55-75 16-18 130-177/62-75 98-98 PHYSICAL EXAM GENERAL: The patient is awake, alert, and fully oriented, in no acute distress. HEAD: Normal with no signs of trauma. EYES: sclera anicteric, conjunctiva clear. ENT: moist mucous membranes. LUNGS: Breath sounds equal, clear to auscultation bilaterally, no wheezes, no crackles, no accessory muscle use. HEART: Regular rate and rhythm ABDOMEN: Soft, nontender, nondistended, normoactive bowel sounds NEUROLOGICAL: Cranial nerves II through XII grossly intact. Normal speech, gait not observed. LABS Laboratory Results - last 24 hr 07/31/18 08/02/18 05:49 07:50 Sodium 142 Potassium 4.7 Chloride 112 H Carbon Dioxide 23 Anion Gap 7 L BUN 25 H Creatinine 1.5 H Creat Clearance w eGFR 33.58 Random Glucose 95 Calcium 9.2 HIV Genotype Non reactive HOSPITAL COURSE: Date of Admission:07/30/18 Date of Discharge: 08/02/18 HPI on Admission: 78 y/o F with PMH stroke (w resultant LLE weakness), ?dementia, hypothyroidism, HTN, HLD, who presents to the ED c/o syncopal event that happened at 2pm yesterday (07/30). States that she was sitting on a chair watching TV (law and order) when she felt warm, dizzy and developed a bad, global GOMEZ. Mentions that she kept telling her grandson she didn't feel right. Soon after, pt had LOC while still sitting for 1-2 minutes. Grandson told pt that she did not have tonic-clonic movements, tongue biting, or urinary incontinence. No chest pain. States that after the syncopal ep, she felt a knot in her R side which moved to her L. Yesterday AM, she also did not eat breakfast and felt very thirsty, asking her son for a drink of ice water. Denies current GOMEZ, fever, chills, SOB, chest pain or pressure, or changes in urinary or bowel function. Lives at home with her grandson. Uses a walker to ambulate. Hospital Course: Pt was seen by cardiology. Carotid Doppler did not reveal any significant stenosis. Echo revealed Grade II diastolic dysfunction but no concerning wall motion or valve abnormalities. Holter monitor revealed an insignificant number of PVCs with some PACs but no concerning arrhythmias. Of note she had an AFSHAN with elevated BUN/Cr which could have been secondary to volume depletion, which cardiology felt could have also played into her syncopal episode. She did not have any further episodes during the hospital stay and was deemed safe for discharge with outpatient cardiology follow up. Her Lisinopril/HCTZ was held due to her renal function, and her Norvasc was increased from 5mg Daily to 10 mg Daily in order to better control her b.p. without the lisinopril/HCTZ combination pill. Minutes to complete discharge: 35 Discharge Summary Reason For Visit: ACUTE KIDNEY INJURY SYNCOPE Current Active Problems AFSHAN (acute kidney injury) (Acute) HTN (hypertension) (Acute) Syncope (Acute) Condition: Stable - Instructions Diet, Activity, Other Instructions: You were admitted for a syncopal episode (fainting). You were evaluated in the hospital by a civil drafting technician who recommended a continuous heart monitor and an ultrasound of your heart, neither of which revealed any concerning abnormalities. At this point you are medically safe to go home. You should follow up with Cardiology within 2 weeks of discharge from the hospital. Dr. Ellis [phone] You should also follow up with your primary care physician within one week of discharge from the hospital. Your hydrochlorothiazide/lisinopril combination pill was discontinued for now as your kidney numbers were a little elevated. Do not take this medication anymore until you follow up with cardiology/your primary care physician who may wish to continue it. Your Norvasc (Amlodipine) dose was increased from 5 mg Daily to 10 mg Daily. You should now be taking 10mg each day. This new dose has been sent in to your pharmacy. You received your dose today so you can start this medication tomorrow. You were also started on a medication Lipitor for your cholesterol. You should take 40 mg (one tablet) by mouth daily at night. If you have any further loss of consciousness, chest pain, difficulty breathing , or any other concerning symptoms, you should be evaluated by your physician or return to the emergency department. Referrals: ON STAFF,NOT [Primary Care Provider] - Pablo Ellis MD [Staff Physician] - Disposition: HOME - Home Medications Comprehensive Discharge Medication List: Ambulatory Orders Levothyroxine Sodium [Levo-T] 75 mcg PO DAILY 07/31/18 Amlodipine Besylate [Norvasc -] 10 mg PO DAILY #30 tablet 08/02/18 Aspirin Coated [Ecotrin -] 81 mg PO DAILY #30 tablet.ec 08/02/18 Atorvastatin Ca [Lipitor] 40 mg PO HS #30 tablet 08/02/18 This patient is new to me today: Yes Date on this admission: 08/02/18 Emergency Visit: Yes ED Registration Date: 07/30/18 Care time: The patient presented to the Emergency Department on the above date and was hospitalized for further evaluation of their emergent condition. Critical Care patient: No - Discharge Referral Referred to [facility] Med P.C.: No
--- NOTE | 2018-08-02 15:12 | PN ---
Progress Note, Physician History of Present Illness: Pt seen and examined at bedside. She is awake and alert. She denies shortness of breath. - Current Medication List Current Medications: Active Medications Amlodipine Besylate (Norvasc -) 10 mg PO DAILY [facility] Last Admin: 08/02/18 09:49 Dose: 10 mg Aspirin (Ecotrin -) 81 mg PO DAILY [facility] Last Admin: 08/02/18 09:49 Dose: 81 mg Atorvastatin Calcium (Lipitor -) 40 mg PO HS [facility] Last Admin: 08/01/18 21:32 Dose: 40 mg Levothyroxine Sodium (Synthroid -) 75 mcg PO DAILY@0700 [facility] Last Admin: 08/02/18 06:08 Dose: 75 mcg - Objective Vital Signs: Vital Signs Temperature 98.8 F 08/02/18 13:28 Pulse Rate 60 08/02/18 13:28 Respiratory Rate 16 08/02/18 13:28 Blood Pressure 130/69 08/02/18 13:28 O2 Sat by Pulse Oximetry (%) 98 08/02/18 09:00 Constitutional: Yes: Calm Eyes: Yes: Conjunctiva Clear HENT: Yes: Atraumatic Cardiovascular: Yes: S1, S2 Respiratory: Yes: CTA Bilaterally Gastrointestinal: Yes: Soft Musculoskeletal: Yes: WNL Edema: No Neurological: Yes: Oriented Psychiatric: Yes: Oriented Labs: CBC, BMP 07/31/18 05:49 08/02/18 07:50 INR, PTT INR 1.08 (0.83-1.09) 07/30/18 21:50 Problem List - Problems (1) HTN (hypertension) Code(s): I10 - ESSENTIAL (PRIMARY) HYPERTENSION (2) AFSHAN (acute kidney injury) Code(s): N17.9 - ACUTE KIDNEY FAILURE, UNSPECIFIED (3) Syncope Code(s): R55 - SYNCOPE AND COLLAPSE Assessment/Plan Current Medications Generic Name Dose Route Start Last Admin Trade Name Freq PRN Reason Stop Dose Admin Amlodipine Besylate 10 mg 08/02/18 08:42 08/02/18 09:49 Norvasc - PO 10 mg DAILY OLGA Administration Aspirin 81 mg 07/31/18 13:00 08/02/18 09:49 Ecotrin - PO 81 mg DAILY OLGA Administration Atorvastatin Calcium 40 mg 07/31/18 22:00 08/01/18 21:32 Lipitor - PO 40 mg HS OLGA Administration Levothyroxine Sodium 75 mcg 07/31/18 07:15 08/02/18 06:08 Synthroid - PO 75 mcg DAILY@0700 [facility] Administration Impression 1. AFSHAN 2. HTN 3. syncope 4. dementia 5. hx cva Plan - renal function continues to improve - keep thiazide on hold for now - will need outpt follow up - kidney echogenic on ultrasound - avoid nsaids
== END 2018-08-02 18:48 | disposition home or self-care (01) ==
LOC: JER 19:45 → JERBED 23:53 → J4S 08-01 14:56
PROVIDERS: ADMIT Internal Medicine; ATTEND Internal Medicine
PROC: 3E0337Z Introduction of Electrolytic and Water Balance Substance into Peripheral Vein, Percutaneous Approach (ICD-10-PCS; principal; 2018-07-30)
DX: R55 Syncope and collapse (principal); N17.9 Acute kidney failure, unspecified; R79.89 Other specified abnormal findings of blood chemistry; D69.6 Thrombocytopenia, unspecified; I10 Essential (primary) hypertension; E78.5 Hyperlipidemia, unspecified; E03.9 Hypothyroidism, unspecified; F03.90 Unspecified dementia, unspecified severity, without behavioral disturbance, psychotic disturbance, mood disturbance, and anxiety; I69.344 Monoplegia of lower limb following cerebral infarction affecting left non-dominant side
CPT/HCPCS: 36415; 70450-TC; 71046-TC-FY; 76775-TC; 80048; 80053; 80061; 81003; 81015; 82550; 82553; 82570; 83735; 84100; 84156; 84300; 84443; 84484; 85025; 85610; 87389; 87522; 93005; 93010; 93225; 93226; 93306-TC; 93880-TC; 96360; 96361; 99284-25; G0378; J7030

== ENCOUNTER 2019-10-03 19:24 | Inpatient (IN) | payer OTHER ==
--- NOTE | 2019-10-03 20:16 | PDOC ---
Documentation entered by Jere Macdonald SCRIBE, acting as scribe for Emily Cannon MD. Emily Cannon MD: This documentation has been prepared by the Renae ng Angel, SCRIBE, under my direction and personally reviewed by me in its entirety. I confirm that the documentation accurately reflects all work, treatment, procedures, and medical decision making performed by me. Attending Attestation - Resident Resident Name: Richard Franco - ED Attending Attestation I have performed the following: I have examined & evaluated the patient, The case was reviewed & discussed with the resident, I agree w/resident's findings & plan, Exceptions are as noted - HPI HPI: 10/03/19 21:13 The patient is a 76 year old female with a significant past medical of HTN who presents to the ED BIBA with grand-daughter at bedside for an episode of unresponsiveness vs syncope earlier today. The grand-daughter states after dinner the patient experienced upper left extremity pain that went down into the hand, shortly after that the patient began slurring her speech and became unresponsive for 5 mins. The patient is currently asymptomatic with no preceding symptoms. - Physicial Exam PE: 10/03/19 21:49 Well-nourished well-developed 79-year-old female states that she started to have bilateral arm pain due to her arthritis after dinner sat down. Family member said that she became unresponsive for a few minutes. She did not slump over. 10/03/19 21:49 Head normocephalic atraumatic Neck no midline cervical vertebral tenderness Lungs are clear to auscultation bilaterally CVS regular rate rhythm S1-S2 Abdomen nontender, no rebound or guarding Skin warm and dry Extremities full range of motion Neuro alert conversant oriented, moving all her extremities - Medical Decision Making 10/03/19 21:52 Neurologically the patient was back to baseline upon arrival She had this episode where she was not speaking to her family member but remained seated Prior to this episode she started to feel bilateral pain which she felt was due to her arthritis but never had any sob or chest pain ct scan head/troponin/chem/cbc pending plan obs telemetry admit
--- NOTE | 2019-10-03 20:25 | PDOC ---
History of Present Illness - General Chief Complaint: Syncope/Near Syncope Stated Complaint: SYNCOPE Time Seen by Provider: 10/03/19 19:55 History Source: Patient, Family Exam Limitations: No Limitations - History of Present Illness Initial Comments: 10/03/19 23:43 79F PMH HTN BIBEMS from home after episode of unresponsiveness witness by grand- daughter (at bedside). Pt had just had dinner and was sitting in her chair. Complained of left arm and hand pain / stiffness then started slurring her speech and became unresponsive for approx 5 minutes. Grandaughter gave pt something to drink and pt started to come to. No head trauma. Currently back to baseline w/o complaints of numbness,tingling, weakness, arm/hand pain or stiffness. Denies f/c, cp/sob. Denies n/v/d/abd.pain/dysuria. No preceding symptoms. ambulates w/ walker. NKA. tPA Exclusion Checklist 0-3hr - Thrombolytic Therapy Candidate Is the patient eligible for Thrombolytic Therapy?: No - Exclusion Criteria 0-3hr SBP greater than 185 or DBP greater than 110mmHg despite tx: No Recent IC/spinal surgery,head trauma or stroke w/in last 3mo: No Hx of previous IC hemorrhage, IC neoplasm, AVM or aneurysm: No Active internal bleeding: No Blding diathesis(low plt ct, inc PTT,INR>1.7 or use of NOAC): No Symptoms suggest subarachnoid hemorrhage: No CT demonstrates multilobar infarct(>1/3 cerebral hemiphere): No Arterial puncture at noncompressible site in previous 7 days: No Blood glucose concentration less than 50mg/dL (2.7mmol/L): No - Ineligibility reason(s) Reasons No tPA given: See reason(s) noted above (no focal neuro deficits; back to baseline; NIHSS = 0 - cannot be TPA'd for score of 0. ) NIH Stroke Scale - Initial Evaluation Level of consciousness: Alert Ask patient the month and their age: Answers both correctly Ask patient to open & close eyes; make fist and let go: Obeys both correctly Best gaze (horizontal eye movement): Normal Visual field testing: No visual field loss Facial paresis (Show teeth/raise eyebrows/close eyes tight): Normal symmetrical movement Motor Function: Left Arm: Normal Motor Function: Right Arm: Normal (extends arm 90 (or 45) degrees for 10 seconds without drift Motor Function: Left Leg: Normal (extends leg 30 degrees for 5 seconds without drift) Motor Function: Right Leg: Normal (extends leg 30 degrees for 5 seconds without drift) Limb Ataxia: No ataxia Sensory(Use pinprick test arms,legs,trunk,face/side to side): Normal Best language (Describe picture, name items, read sentences): No Aphasia Dysarthria (read several words): Normal articulation Extinction and Inattention: No abnormality - Total Score NIH Stroke Scale Score: 0 Past History - Past Medical History Allergies/Adverse Reactions: Allergies Allergy/AdvReac Type Severity Reaction Status Date / Time No Known Allergies Allergy Verified 10/03/19 19:41 Home Medications: Ambulatory Orders Enalapril/Hydrochlorothiazide [Vaseretic 10-25 mg Tablet] 1 each PO DAILY 10/03/19 Aspirin Coated [Ecotrin -] 81 mg PO DAILY #30 tablet.ec 10/05/19 Atorvastatin Ca [Lipitor] 40 mg PO HS #30 tablet 10/05/19 Levothyroxine [Synthroid -] 125 mcg PO DAILY@0700 #30 tablet 10/05/19 CVA: Yes COPD: No HTN: Yes - Psycho Social/Smoking Cessation Hx Smoking History: Never smoked Have you smoked in the past 12 months: No Hx Alcohol Use: No Drug/Substance Use Hx: No Substance Use Type: None Hx Substance Use Treatment: No Review of Systems - Review of Systems Able to Perform ROS?: Yes Comments:: 10/03/19 23:43 CONSTITUTIONAL: Denies F / C HEENT: Denies headache, lightheadedness, dizziness, changes in vision / hearing RESP: Denies SOB CARD: Denies chest pain GI: Denies N / V / D, abdominal pain : Denies dysuria SKIN: Denies rashes NEURO: Denies numbness, tingling, weakness MSK: Denies back pain, arm pain, leg pain, neck pain. Is the patient limited Ukrainian proficient: No *Physical Exam - Vital Signs Last Vital Signs Temp Pulse Resp BP Pulse Ox 97.3 F L 62 22 H 173/66 H 97 10/03/19 19:43 10/03/19 19:43 10/03/19 19:43 10/03/19 19:43 03/02/20 19:43 - Physical Exam 10/03/19 23:43 VS: Supine 168/63; Sitting 157/94; HR 60s both supine and sitting GEN: NAD, comfortable. AAOx3. HEENT: NC/AT, CN II-XII intact, EOMI, PERRL. No facial asymmetry. Moist mucous membranes. Normal voice. Supple neck w/ FROM. CV: S1/S2, RRR, no m/r/g LUNG: Normal respiratory effort - not tachypnic; CTAB, no wheezes, crackles, rales, rhonchi. GI: Soft, ndnt, +BS, no guarding, no rebound. No masses. Neg CVAT b/l. MSK: 2+ distal pulses. No LE edema. No obvious deformities of all extremities. SKIN: Warm, dry, no rashes appreciated. PSYCH: Normal mood and affect. NEURO: Moving all extremities well. 5/5 UE strength b/l. 5/5 LE strength b/l. Sensation symmetric and intact throughout. Heart Score/ECG Review - History History: Slightly suspicious - Electrocardiogram EKG: Normal - Age Age: >/= 65 - Risk Factors Risk Factors Heart Score: Yes Hx Hypertension Based on the list above the patient has:: 1-2 risk factors ED Treatment Course - LABORATORY CBC & Chemistry Diagram: 10/05/19 05:40 10/05/19 05:40 - RADIOLOGY Radiology Studies Ordered: Category Date Time Status HEAD CT WITHOUT CONTRAST [CT] Stat CT Scan 10/03/19 20:18 Ordered CHEST X-RAY PORTABLE* [RAD] Stat Radiology 10/03/19 20:19 Ordered Medical Decision Making - Medical Decision Making 10/03/19 20:20 79F BIBEMS from home after episode of unresponsiveness vs syncope witness by grand-daughter at bedside. Pt had no preceding sx and currently asymptomatic; does not remember events. Neurologically intact. DDx - syncope eval (lytes, arryhthmia, anemia, infection); eval ACS; possible TIA? - CBC, CMP, Cardiac - EKG, CXR - CT Head 10/03/19 21:10 EKG 1944 HR 62 TN 198 QRS 110 QTc 410; poor baseline; NSR 10/03/19 22:16 labs reviewed BUN/Cr elevated from baseline 10/03/19 22:[address] evidence of acute intracranial pathology. Chronic right occipital cortical infarct. Mild periventricular and subcortical chronic microvascular ischemic changes. No definite interval change is identified in comparison to a CT exam of 07/31/2018. Hydrate admit tele-obs Discharge - Discharge Information Problems reviewed: Yes Clinical Impression/Diagnosis: Syncope Qualifiers: Syncope type: unspecified Qualified Code(s): R55 - Syncope and collapse Condition: Improved - Follow up/Referral - Patient Discharge Instructions - Post Discharge Activity
[2019-10-03 21:33] LABS: BASO % 0.5 % (0-2.0); EOS % 2.6 % (0-4.5); HEMATOCRIT 31.8 % (32.4-45.2); HEMOGLOBIN 10.5 GM/dL (10.7-15.3); LYMPH % 18.6 % (8-40); MCH 30.7 pg (25.7-33.7); MCHC 32.9 g/dl (32.0-36.0); MEAN CELL VOLUME 93.4 fl (80-96); MEAN PLT VOLUME 11.4 fl (7.5-11.1); MONO % 11.5 % (3.8-10.2); NEUT % 66.8 % (42.8-82.8); PLATELET COUNT 125 K/MM3 (134-434); RBC 3.41 M/mm3 (3.60-5.2); RDW 15.2 % (11.6-15.6); WHITE BLOOD COUNT 5.1 K/mm3 (4.0-10.0)
[2019-10-03 22:07] LABS: ALBUMIN 3.9 g/dl (3.4-5.0); BILIRUBIN,TOTAL 0.5 mg/dL (0.2-1); BLOOD UREA NITROGEN 51.4 mg/dL (7-18); CREATININE 2.5 mg/dL (0.55-1.3); MAGNESIUM 2.3 mg/dL (1.8-2.4); POTASSIUM 4.8 mmol/L (3.5-5.1); TOT PROT 6.8 g/dl (6.4-8.2)
[2019-10-03] MEDS ORDERED: SODIUM CHLORIDE 0.9% 500 ML INFUS.BAG IV ONE (22:58)
--- NOTE | 2019-10-03 23:39 | PN ---
Teaching Attending Note Name of Resident: Luisa Geller ATTENDING PHYSICIAN STATEMENT I saw and evaluated the patient. I reviewed the resident's note and discussed the case with the resident. I agree with the resident's findings and plan as documented. SUBJECTIVE: Patient is a 79 year old woman with a PMH of HTN, CKD and Hypothyroidism BIBEMS from home after episode of unresponsiveness witness by grand-daughter (at bedside). Patient had just had dinner and was sitting in her chair. Complained of left arm and hand pain/stiffness then started slurring her speech and became unresponsive for about 5 minutes. Grand-daughter gave her something to drink and patient started to become responsive. No preceding symptoms or head trauma. Currently back to baseline without complaints of numbness, tingling, weakness, arm/hand pain or stiffness. Denies fever, chills, chest pain, SOB, nausea, vomiting, diarrhea, abdominal pain or dysuria. Denies alcohol, tobacco or illicit drug use. No sick contacts or recent travels. OBJECTIVE: Alert Vital Signs Period Temp Pulse Resp BP Sys/Carmen Pulse Ox Last 24 Hr 97.3 F 62 22 173/66 97 HEENT: No Jaundice, eye redness or discharge, PERRLA, EOMI. Left facial droop. Normocephalic, atraumatic. External ears are normal and hearing is grossly intact. No nasal discharge. Neck: Supple, nontender. No palpable adenopathy or thyromegaly. No JVD Chest: Good effort. Clear to auscultation and percussion. Heart: Regular. No S3, rub or murmur Abdomen: Not distended, soft, nontender and no HSM. No rebound or guarding. Normal bowel sounds. Ext: Peripheral pulses intact. No leg edema. Skin: Warm and dry. No petechiae, rash or ecchymosis. Neuro: Alert. Oriented to person and place. Left facial droop. Sensation grossly intact in all four extremities and DTR are symmetric. Psych: Appropriate mood and affect. Good insight. Home Medications Medication Instructions Recorded Levothyroxine Sodium [Levo-T] 150 mcg PO DAILY 07/31/18 Enalapril/Hydrochlorothiazide 1 each PO DAILY 10/03/19 [Vaseretic 10-25 mg Tablet] Abnormal Lab Results 10/03/19 10/03/19 20:45 20:45 RBC 3.41 L Hgb 10.5 L Hct 31.8 L Plt Count 125 L D MPV 11.4 H Monocytes % 11.5 H Chloride 109 H BUN 51.4 H Creatinine 2.5 H Random Glucose 142 H AST 12 L ASSESSMENT AND PLAN: 1. Syncope/?CVA - Etiology unclear. No acute abnormality on head CT. Chronic right occipital cortical infarcts noted. NIHSS score was 4. Patient is outside the window for tPA. No acute abnormalities on CXR. EKG shows NSR at 62/minute, LVH and nos ST-T wave changes. We monitor on telemetry, get fasting lipids, speech&swallow evaluation, ECHO, TSH, HbA1c, carotid doppler and brain MRI. Implement fall precautions. Will treat with Statin and Aspirin and consult Neurology and PT. Will continue comprehensive care for all of patients comorbid conditions including levothyroxine for hypothroidism. 2. CKD - Cause unclear. Will get kidney sonogram, urinalysis, PTH and phosphate levels. Will consult nephrology and avoid nephrotoxic agents such as NSAIDS, aminoglycosides, contrast dyes and certain Alternative medicine products. 3. Anemia - Likely partly due to CKD. Will do basic anemia work up including serial stool guaiacs, reticulocyte count and iron studies. 4. Hypertension - Will practice permissive hypertension for now. Restart suitable outpatient antihypertensive drugs when clinically appropriate. Revise regimen to ensure [id number] excellent BP control and nutrition counselor patient on the injurious effects of uncontrolled hypertension. Nonpharmacologic measures to control hypertension like weight loss, salt restriction and exercise discussed. Importance of adherence to treatment regimen and attainment of normotension emphasized. 5. DVT prophylaxis - Heparin 5000 u SQ tid. 6. Advance directives - Full code
[2019-10-04] MEDS ORDERED: ASPIRIN 325 MG TABLET PO ONE (02:14)
--- NOTE | 2019-10-04 02:16 | HP ---
CHIEF COMPLAINT: cva PCP: Dr. Bull HISTORY OF PRESENT ILLNESS: 79 y.o. F PMH HTN, prior CVA, hypothyroidism, questionable dementia presenting for L neck and LUE pain. The patient was sitting down watching tv when she felt a sharp pain to her L neck. Soon after she began experiencing L hand pain with severe L hand rigidity & became unable to move her L digits. Her children were home with her and noted that she became dysarthric. These symptoms lasted for about 5 minutes; EMS was contacted during this time. On arrival to ED, NIHSS was 0, patient's symptoms completely resolved. Patient was hypertensive to 170s SBP. CT head negative for acute pathology. On my exam, NIHSS was 4; AOx2 not oriented to date, flattened L nasolabial fold & b/l LE motor drift without hitting the bed (L>R). Neuro contacted (Dr. Blevins) due to progression of symptoms. Recommending CTA to r/o infarct. ER course was notable for: (1) CT head neg for acute pathology, chronic R occipital infarct noted (2) EKG: NSR (3) NIHSS 0 w/ progression to 4 Recent Travel: no PAST MEDICAL HISTORY: htn PAST SURGICAL HISTORY: some type of thyroid procedure, pt is unsure Social History: Smoking: denies Alcohol:denies Drugs: denies Allergies No Known Allergies Allergy (Verified 10/03/19 19:41) HOME MEDICATIONS: Home Medications Medication Instructions Recorded Levothyroxine Sodium [Levo-T] 150 mcg PO DAILY 07/31/18 Enalapril/Hydrochlorothiazide 1 each PO DAILY 10/03/19 [Vaseretic 10-25 mg Tablet] REVIEW OF SYSTEMS + facial weakness (left sided), LLE weakness (incr from usual weakness), b/l calf tenderness denies headache/ N/V/D/ chest pain/ SOB/ chills/ fevers/ diaphoresis/ parasthesias PHYSICAL EXAMINATION Vital Signs - 24 hr 10/03/19 10/04/19 19:43 01:00 Temperature 97.3 F L Pulse Rate 62 Pulse Rate [ 65 Left Radial] Respiratory 22 H 18 Rate Blood Pressure 173/66 H Blood Pressure 187/63 H [Right Arm] O2 Sat by Pulse 97 99 Oximetry (%) GENERAL: AOx2 NAD. Orthostatics negative HEENT: Flattened left sided nasolabial fold LUNGS: CTABL. No wheezes, and no crackles. No accessory muscle use. HEART: RRR, normal S1 and S2 without murmurs ABDOMEN: Soft, nontender, not distended, normoactive bowel sounds EXTREMITIES: 2+ pulses, warm, well-perfused. + calf tenderness. No peripheral edema. NEUROLOGICAL: Sensory intact throughout. Motor 5/5 b/l UE. LLE weakness, 4/5 motor, + drift w/o hitting bed. RLE also has slight motor drift, does not hit bed. Good handgrip strength b/l. PSYCHIATRIC: Appropriate mood and affect. SKIN: Warm, dry, normal turgor, no rashes or lesions noted Laboratory Results - last 24 hr 10/03/19 10/03/19 10/03/19 20:45 20:45 20:45 WBC 5.1 RBC 3.41 L Hgb 10.5 L Hct 31.8 L MCV 93.4 MCH 30.7 MCHC 32.9 RDW 15.2 Plt Count 125 L D MPV 11.4 H Absolute Neuts (auto) 3.4 Neutrophils % 66.8 D Lymphocytes % 18.6 D Monocytes % 11.5 H Eosinophils % 2.6 Basophils % 0.5 Nucleated RBC % 0 Sodium 141 Potassium 4.8 Chloride 109 H Carbon Dioxide 23 Anion Gap 9 BUN 51.4 H Creatinine 2.5 H Est GFR (CKD-EPI)AfAm 20.49 Est GFR (CKD-EPI)NonAf 17.68 Random Glucose 142 H Calcium 9.0 Magnesium 2.3 Total Bilirubin 0.5 AST 12 L ALT 19 Alkaline Phosphatase 73 Creatine Kinase 158 Creatine Kinase Index 0.9 CK-MB (CK-2) 1.5 Troponin I < 0.02 Total Protein 6.8 Albumin 3.9 ASSESSMENT/PLAN: 79 y.o. F PMH HTN, prior CVA, hypothyroidism, questionable dementia presenting for L arm pain and dysarthria #CVA -NIHSS initially 0, now 4 -orthostatics negative -giving stat ASA 325mg, HD statin -f/u MRI brain w/o contrast -f/u echo, carotid u/s, UA -Neuro (Dr. Blevins) contacted, recommending CTA brain. Aware of ckd presence, stroke taking precedence at this time, recommending aggressive hydration post- contrast -If + infarct on CTA recommending transfer for possible thrombectomy -speech & swallow eval -physical therapy -monitor on tele #AFSHAN on CKD -Cr 2.5, chronic, was 1.5 in 2018 -f/u renal U/S, phos, PTH -trend renal labs -patient seemingly unaware of her renal history -Renal Dr. Anthony consulted #Normocytic anemia -Hgb/ hct 10.5/31.8 -f/u AM cbc -f/u iron studies #Hypothyroidism -reported prior hx of thyroid surgery -f/u TSH -continue synthroid #HTN -holding home anti htn med (Vaseretic 10-25mg) -allow permissive htn -EKG: NSR, LVH, no ST/T changes, qtc 410 -trop neg x 1 #HLD -continue high dose statin -f/u lipid panel #FEN -given 1L NS, continue IVF standing -trend lytes replete prn -diet in AM #PPX heparin sq #Dispo stroke unit Visit type - Emergency Visit Emergency Visit: Yes ED Registration Date: 10/04/19 Care time: The patient presented to the Emergency Department on the above date and was hospitalized for further evaluation of their emergent condition. - New Patient This patient is new to me today: Yes Date on this admission: 10/04/19 - Critical Care Critical Care patient: No ATTENDING PHYSICIAN STATEMENT I saw and evaluated the patient. I reviewed the resident's note and discussed the case with the resident. I agree with the resident's findings and plan as documented. SUBJECTIVE: OBJECTIVE: ASSESSMENT AND PLAN:
--- NOTE | 2019-10-04 02:17 | PN.NIHSS ---
NIH Stroke Scale - Initial Evaluation Level of consciousness: Alert Ask patient the month and their age: Answers one correctly Ask patient to open & close eyes; make fist and let go: Obeys both correctly Best gaze (horizontal eye movement): Normal Visual field testing: No visual field loss Facial paresis (Show teeth/raise eyebrows/close eyes tight): Minor paralysis ( flattened nasolabial fold, asymmetry on smiling) Motor Function: Left Arm: Normal Motor Function: Right Arm: Normal (extends arm 90 (or 45) degrees for 10 seconds without drift Motor Function: Left Leg: Drift Motor Function: Right Leg: Drift Limb Ataxia: No ataxia Sensory(Use pinprick test arms,legs,trunk,face/side to side): Normal Best language (Describe picture, name items, read sentences): No Aphasia Dysarthria (read several words): Normal articulation Extinction and Inattention: No abnormality - Total Score NIH Stroke Scale Score: 4
[2019-10-04] MEDS ORDERED: SODIUM CHLORIDE 1,000 ML IV SCH ×2 (03:00→05:19)
[2019-10-04] MEDS ORDERED: ASPIRIN 81 MG CHEWABLE TABLETS ONE (03:07)
[2019-10-04] MEDS ORDERED: ATORVASTATIN CA 80 MG TABLET (FP) PO ONE (04:45)
[2019-10-04 06:06] LABS: EOS % 4.7 % (0-4.5); HEMATOCRIT 29.3 % (32.4-45.2); HEMOGLOBIN 9.8 GM/dL (10.7-15.3); LYMPH % 35.7 % (8-40); MCH 30.9 pg (25.7-33.7); MCHC 33.7 g/dl (32.0-36.0); MEAN CELL VOLUME 91.9 fl (80-96); MEAN PLT VOLUME 11.6 fl (7.5-11.1); MONO % 10.2 % (3.8-10.2); NEUT % 48.4 % (42.8-82.8); PLATELET COUNT 117 K/MM3 (134-434); RBC 3.18 M/mm3 (3.60-5.2); RDW 14.9 % (11.6-15.6); WHITE BLOOD COUNT 5.1 K/mm3 (4.0-10.0)
[2019-10-04] MEDS ORDERED: ATORVASTATIN CA 80 MG TABLET (FP) ONE (06:24)
[2019-10-04] MEDS ORDERED: HEPARIN NA (PORCINE) 5,000 UNITS/ML 1ML VIAL ONE (06:25)
[2019-10-04] MEDS: HEPARIN NA (PORCINE) 5,000 UNITS/ML 1ML VIAL SQ SCH ×3 (06:34→21:16)
[2019-10-04 06:44] LABS: ALBUMIN 3.6 g/dl (3.4-5.0); BILIRUBIN,TOTAL 0.5 mg/dL (0.2-1); BLOOD UREA NITROGEN 44.9 mg/dL (7-18); CALCIUM 8.3 mg/dL (8.5-10.1); POTASSIUM 4.3 mmol/L (3.5-5.1); TOT PROT 6.3 g/dl (6.4-8.2)
[2019-10-04] MEDS ORDERED: LEVOTHYROXINE NA 150 MCG TABLET PO SCH ×2 (07:00→15:31)
--- NOTE | 2019-10-04 07:57 | PN ---
Physical Exam: SUBJECTIVE: Patient seen and examined OBJECTIVE: Vital Signs Period Temp Pulse Resp BP Sys/Carmen Pulse Ox Last 24 Hr 97.3 F 62-87 18-22 112-187/50-66 97-99 GENERAL: The patient is awake, alert, and fully oriented, in no acute distress. HEAD: Normal with no signs of trauma. EYES: PERRL, extraocular movements intact, sclera anicteric, conjunctiva clear. No ptosis. ENT: Ears normal, nares patent, oropharynx clear without exudates, moist mucous membranes. NECK: Trachea midline, full range of motion, supple. LUNGS: Breath sounds equal, clear to auscultation bilaterally, no wheezes, no crackles, no accessory muscle use. HEART: Regular rate and rhythm, S1, S2 without murmur, rub or gallop. ABDOMEN: Soft, nontender, nondistended, normoactive bowel sounds, no guarding, no rebound, no hepatosplenomegaly, no masses. EXTREMITIES: 2+ pulses, warm, well-perfused, no edema. NEUROLOGICAL: Cranial nerves II through XII grossly intact. Normal speech, gait not observed. PSYCH: Normal mood, normal affect. SKIN: Warm, dry, normal turgor, no rashes or lesions noted Laboratory Results - last 24 hr 10/03/19 10/03/19 10/03/19 20:45 20:45 20:45 WBC 5.1 RBC 3.41 L Hgb 10.5 L Hct 31.8 L MCV 93.4 MCH 30.7 MCHC 32.9 RDW 15.2 Plt Count 125 L D MPV 11.4 H Absolute Neuts (auto) 3.4 Neutrophils % 66.8 D Lymphocytes % 18.6 D Monocytes % 11.5 H Eosinophils % 2.6 Basophils % 0.5 Nucleated RBC % 0 Retic Count Sodium 141 Potassium 4.8 Chloride 109 H Carbon Dioxide 23 Anion Gap 9 BUN 51.4 H Creatinine 2.5 H Est GFR (CKD-EPI)AfAm 20.49 Est GFR (CKD-EPI)NonAf 17.68 Random Glucose 142 H Calcium 9.0 Phosphorus Magnesium 2.3 Iron TIBC Iron Saturation Unsaturated IBC Ferritin Total Bilirubin 0.5 AST 12 L ALT 19 Alkaline Phosphatase 73 Creatine Kinase 158 Creatine Kinase Index 0.9 CK-MB (CK-2) 1.5 Troponin I < 0.02 Total Protein 6.8 Albumin 3.9 Triglycerides Cholesterol Total LDL Cholesterol HDL Cholesterol TSH 10/04/19 10/04/19 10/04/19 05:40 05:40 05:40 WBC 5.1 RBC 3.18 L Hgb 9.8 L Hct 29.3 L MCV 91.9 MCH 30.9 MCHC 33.7 RDW 14.9 Plt Count 117 L MPV 11.6 H Absolute Neuts (auto) 2.5 Neutrophils % 48.4 D Lymphocytes % 35.7 D Monocytes % 10.2 Eosinophils % 4.7 H D Basophils % 1.0 Nucleated RBC % 0 Retic Count 1.53 H Sodium 145 Potassium 4.3 Chloride 116 H Carbon Dioxide 20 L Anion Gap 9 BUN 44.9 H Creatinine 2.0 H Est GFR (CKD-EPI)AfAm 26.84 Est GFR (CKD-EPI)NonAf 23.16 Random Glucose 84 Calcium 8.3 L Phosphorus Magnesium Iron TIBC Iron Saturation Unsaturated IBC Ferritin Total Bilirubin 0.5 AST 11 L ALT 19 Alkaline Phosphatase 70 Creatine Kinase Creatine Kinase Index CK-MB (CK-2) Troponin I Total Protein 6.3 L Albumin 3.6 Triglycerides 75 Cholesterol 180 Total LDL Cholesterol 124 H HDL Cholesterol 33 L TSH 10/04/19 05:40 WBC RBC Hgb Hct MCV MCH MCHC RDW Plt Count MPV Absolute Neuts (auto) Neutrophils % Lymphocytes % Monocytes % Eosinophils % Basophils % Nucleated RBC % Retic Count Sodium Potassium Chloride Carbon Dioxide Anion Gap BUN Creatinine Est GFR (CKD-EPI)AfAm Est GFR (CKD-EPI)NonAf Random Glucose Calcium Phosphorus 4.0 Magnesium Iron 38 L TIBC 242 L Iron Saturation 15 L Unsaturated IBC 204 Ferritin 80.8 Total Bilirubin AST ALT Alkaline Phosphatase Creatine Kinase Creatine Kinase Index CK-MB (CK-2) Troponin I Total Protein Albumin Triglycerides Cholesterol Total LDL Cholesterol HDL Cholesterol TSH 0.01 L Active Medications Generic Name Dose Route Start Last Admin Trade Name Freq PRN Reason Stop Dose Admin Aspirin 81 mg 10/04/19 10:00 Ecotrin - PO DAILY OLGA Heparin Sodium (Porcine) 5,000 unit 10/04/19 06:00 10/04/19 06:34 Heparin - SQ 5,000 unit TID OLGA Administration Sodium Chloride 1,000 mls @ 75 mls/hr 10/04/19 05:19 10/04/19 06:30 Normal Saline - IV 75 mls/hr ASDIR OLGA Administration Levothyroxine Sodium 150 mcg 10/04/19 07:00 Synthroid - PO DAILY@0700 [facility] ASSESSMENT/PLAN: ATTENDING PHYSICIAN STATEMENT I saw and evaluated the patient. I reviewed the resident's note and discussed the case with the resident. I agree with the resident's findings and plan as documented. SUBJECTIVE: OBJECTIVE: ASSESSMENT AND PLAN:
[2019-10-04] MEDS ORDERED: PT OWN MED DRAWER 7, Y5N ONE (10:03)
[2019-10-04] MEDS: ASPIRIN COATED 81 MG TABLET.EC PO SCH (10:14)
--- NOTE | 2019-10-04 10:26 | CONSULT ---
Admitting History and Physical - Primary Care Physician PCP: Janak Dunbar - Admission History of Present Illness: per emr- 79 y.o. F PMH HTN, prior CVA, hypothyroidism, questionable dementia presenting for L neck and LUE pain. The patient was sitting down watching tv when she felt a sharp pain to her L neck. Soon after she began experiencing L hand pain with severe L hand rigidity & became unable to move her L digits. Her children were home with her and noted that she became dysarthric. These symptoms lasted for about 5 minutes; EMS was contacted during this time. On arrival to ED, NIHSS was 0, patient's symptoms completely resolved. Patient was hypertensive to 170s SBP. CT head negative for acute pathology. On my exam, NIHSS was 4; AOx2 not oriented to date, flattened L nasolabial fold & b/l LE motor drift without hitting the bed (L>R). Neuro contacted (Dr. Blevins) due to progression of symptoms. Recommending CTA to r/o infarct. ER course was notable for: (1) CT head neg for acute pathology, chronic R occipital infarct noted (2) EKG: NSR (3) NIHSS 0 w/ progression to 4 Selected Entries 10/03/19 10/04/19 10/04/19 19:43 01:00 05:00 Temperature 97.3 F L Blood Pressure 173/66 H Blood Pressure 187/63 H 112/50 L [Right Arm] Laboratory Tests 10/04/19 05:40 WBC 5.1 Passed Dysphagia screen. Reg diet ordered, not yet received. Pt c/o feeling hungry. History Source: Medical Record Limitations to Obtaining History: Clinical Condition - Past Medical History [employer]ANT [employer]PER[employer]: Yes: CVA, Dementia Cardiovascular: Yes: HTN Endocrine: Yes: Hypothyroidism - Smoking History Smoking history: Never smoked Have you smoked in the past 12 months: No - Alcohol/Substance Use Hx Alcohol Use: No History - Admission Reason For Visit: SYNCOPE - Diagnostics X-ray: Report Reviewed CT Scan: Report Reviewed MRI: Report Reviewed - General Mental Status: Alert and Oriented, Awake and Alert, Able to Follow Commands, Vague (slow to respond, vague, groping for words. Baseline?) Attention: Distractible, Mild Impairment Ability to Follow Directions: Good Head/Neck Control: WFL - Hearing Hearing: Functional Speech Evaluation - Communication Primary Language: PORTUGUESE Communication: Yes: Simple Responses Oral Expression Ability: Yes: Mild Impairment - Speech Production Intelligibility: Yes: WNL - Speech Characteristics Voice Loudness: Normal Voice Pitch: Yes: Normal Voice Phonatory-based Quality: Yes: Normal, Dysphonia (mild) Speech Clarity: < 100% Nasal Resonance: Normal Articulation: Yes: Precise Rate of Speech: Intact - Language/Auditory Comprehension Follows: Yes: 1 Stage Simple Commands Observation: Able to respond to yes/no queries: Yes, Yes/No Confusion: No, Comprehends Conversational Speech: Yes - Language/Verbal Expression Aphasia: Yes: Anomia Able to Respond to Simple Queries: Yes: Mildly Impaired Able to Communicate Wants and Needs: Yes: Mildly Impaired Functional Communication Status: Yes: Mildly Impaired - Swallow Evaluation/Bedside Assessment Current Nutritional Intake: Regular, Thin Liquids Oral Secretions: Yes: WFL Dentition: Yes: Adequate Facial Symmetry at Rest: Symmetrical Facial Symmetry on Retraction: Symmetrical Facial Movement: Controlled Sensation: Normal Against Resistance Opening: Normal Against Resistance Closing: Normal Pucker Lips: Normal Smile: Normal Lingual Movement: Normal, Symmetric Lingual Speed of Movement: Normal Lingual Movement Strgth Against Opposition: Normal Lingual Movement Characteristics: Normal Velopharyngeal Movement: Normal Laryngeal Elevation: WFL Laryngeal Movement: Able to Palpate Rate of Intake: WFL Bolus Size: WFL Labial Seal: WFL Chewing: WFL Oral Prep Time: WFL A-P Transit: WFL Pocketing: None Timing of Swallow: WFL Coughing/Throat Clear: Yes (throat clearing with adwoa cracker, good tolerance of water) Recommendations - Speech Evaluation, Impression/Plan Impression: Mostly appropriate but slow to respond, vague, groping for words. Baseline? Continuous throat clearing with adwoa cracker, good tolerance of water - Dysphagia Impressions/Plan Dysphagia Impressions: Mild Impairment, Ongoing Evaluation *Silent aspiration: cannot be R/O at bedside Dysphagia Treatment Plan: Small Bites, Chin Tuck/Down, Trial Feedings, Safe Rate , 1/2 tsp. at a time, Elevate HOB during feed, OOB for meals, OOB for 1 h. after meals Recommendations: Modified Barium Swallow (if throat clearing/cough persists) - Recommendations Diet Consistency: Regular (soft, moist, easy to chew, extra gravy) Liquids: Thin Liquids
--- NOTE | 2019-10-04 10:33 | EKG ---
Test Reason : Blood Pressure : / mmHG Vent. Rate : 062 BPM Atrial Rate : 062 BPM P-R Int : 198 ms QRS Dur : 110 ms QT Int : 404 ms P-R-T Axes : 070 -05 040 degrees QTc Int : 410 ms POOR DATA QUALITY, INTERPRETATION MAY BE ADVERSELY AFFECTED NORMAL SINUS RHYTHM MODERATE VOLTAGE CRITERIA FOR LVH, MAY BE NORMAL VARIANT BORDERLINE ECG WHEN COMPARED WITH ECG OF 31-JUL-2018 09:50, SD INTERVAL HAS DECREASED Confirmed by Vidal Jacques MD ([id number]) on 10/04/2019 10:33:34 AM Referred By: Confirmed By:Vidal Jacques MD
--- NOTE | 2019-10-04 11:32 | CONSULT ---
Consultation: CONSULT REQUEST: Nephrology Consultation HISTORY OF PRESENT ILLNESS: Patient is a 79 y.o. F PMH HTN, prior CVA, hypothyroidism (from surgery), questionable dementia presented from home after an episode of unresponsiveness witnessed by grand-daughter. Patient had just had dinner and was sitting in her chair. Complained of left arm and hand pain/stiffness then started slurring her speech and became unresponsive for about 5 minutes. Her children were home with her and noted that she became dysarthric. These symptoms lasted for about 5 minutes; EMS was contacted during this time. On arrival to ED, NIHSS was 0, patient's symptoms completely resolved. Patient was hypertensive to 170s SBP. CT head negative for acute pathology. Patient was found with a Cr of 2.5, BUN 51.4. She states she was never told she had any renal issues in the past. Says she follows routinely with her PCP. 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 Patient currently denies any symptoms, says she feels great. She denies nausea, vomiting, fevers, chills, weakness, diarrhea, urinary symptoms, numbness, tingling. REVIEW OF SYSTEMS: CONSTITUTIONAL: Absent: fever, chills, diaphoresis, generalized weakness, malaise, loss of appetite, weight change HEENT: Absent: rhinorrhea, nasal congestion, throat pain, throat swelling, difficulty swallowing, mouth swelling, ear pain, eye pain, visual changes CARDIOVASCULAR: Absent: chest pain, syncope, palpitations, irregular heart rate, lightheade dness, peripheral edema RESPIRATORY: Absent: cough, shortness of breath, dyspnea with exertion, orthopnea, wheezing, stridor, hemoptysis GASTROINTESTINAL: Absent: abdominal pain, abdominal distension, nausea, vomiting, diarrhea, constipation, melena, hematochezia GENITOURINARY: Absent: dysuria, frequency, urgency, hesitancy, hematuria, flank pain, genital pain MUSCULOSKELETAL: Absent: myalgia, arthralgia, joint swelling, back pain, neck pain PHYSICAL EXAMINATION Vital Signs - 24 hr 10/03/19 10/04/19 10/04/19 19:43 01:00 05:00 Temperature 97.3 F L Pulse Rate 62 Pulse Rate [ 65 87 Left Radial] Respiratory 22 H 18 18 Rate Blood Pressure 173/66 H Blood Pressure 187/63 H 112/50 L [Right Arm] O2 Sat by Pulse 97 99 98 Oximetry (%) GENERAL: a/o x 2, seems forgetful HEAD: Normal with no signs of trauma. EYES: Pupils equal, round and reactive to light, extraocular movements intact, sclera anicteric EARS, NOSE, THROAT: oropharynx clear without exudates. Moist mucous membranes. NECK: supple LUNGS: CTAB. no rales rhonchi or wheezing. HEART: Regular rate and rhythm, normal S1 and S2 without murmur, rub or gallop. ABDOMEN: +BS, NT, ND UPPER EXTREMITIES: 2+ pulses, warm, No peripheral edema. LOWER EXTREMITIES: 2+ pulses, b/l Calf tenderness. No redness or swelling. No peripheral edema. Laboratory Results - last 24 hr 10/03/19 10/03/19 10/03/19 20:45 20:45 20:45 WBC 5.1 RBC 3.41 L Hgb 10.5 L Hct 31.8 L MCV 93.4 MCH 30.7 MCHC 32.9 RDW 15.2 Plt Count 125 L D MPV 11.4 H Absolute Neuts (auto) 3.4 Neutrophils % 66.8 D Lymphocytes % 18.6 D Monocytes % 11.5 H Eosinophils % 2.6 Basophils % 0.5 Nucleated RBC % 0 Retic Count Sodium 141 Potassium 4.8 Chloride 109 H Carbon Dioxide 23 Anion Gap 9 BUN 51.4 H Creatinine 2.5 H Est GFR (CKD-EPI)AfAm 20.49 Est GFR (CKD-EPI)NonAf 17.68 Random Glucose 142 H Hemoglobin A1c % Calcium 9.0 Phosphorus Magnesium 2.3 Iron TIBC Iron Saturation Unsaturated IBC Ferritin Total Bilirubin 0.5 AST 12 L ALT 19 Alkaline Phosphatase 73 Creatine Kinase 158 Creatine Kinase Index 0.9 CK-MB (CK-2) 1.5 Troponin I < 0.02 Total Protein 6.8 Albumin 3.9 Triglycerides Cholesterol Total LDL Cholesterol HDL Cholesterol TSH Free T4 10/04/19 10/04/19 05:40 05:40 WBC RBC Hgb Hct MCV MCH MCHC RDW Plt Count MPV Absolute Neuts (auto) Neutrophils % Lymphocytes % Monocytes % Eosinophils % Basophils % Nucleated RBC % Retic Count Sodium Potassium Chloride Carbon Dioxide Anion Gap BUN Creatinine Est GFR (CKD-EPI)AfAm Est GFR (CKD-EPI)NonAf Random Glucose Hemoglobin A1c % 5.9 Calcium Phosphorus 4.0 Magnesium Iron 38 L TIBC 242 L Iron Saturation 15 L Unsaturated IBC 204 Ferritin 80.8 Total Bilirubin AST ALT Alkaline Phosphatase Creatine Kinase Creatine Kinase Index CK-MB (CK-2) Troponin I Total Protein Albumin Triglycerides Cholesterol Total LDL Cholesterol HDL Cholesterol TSH 0.01 L Free T4 2.19 H Active Medications Generic Name Dose Route Start Last Admin Trade Name Magnoq PRN Reason Stop Dose Admin Aspirin 81 mg 10/04/19 10:00 10/04/19 10:14 Ecotrin - PO 81 mg DAILY OLGA Administration Heparin Sodium (Porcine) 5,000 unit 10/04/19 06:00 10/04/19 06:34 Heparin - SQ 5,000 unit TID OLGA Administration Sodium Chloride 1,000 mls @ 75 mls/hr 10/04/19 05:19 10/04/19 06:30 Normal Saline - IV 75 mls/hr ASDIR OLGA Administration Levothyroxine Sodium 150 mcg 10/04/19 07:00 10/04/19 10:14 Synthroid - PO 150 mcg DAILY@0700 OLGA Administration ASSESSMENT/PLAN: 79 y.o. F PMH HTN, prior CVA, hypothyroidism (from surgery), questionable dementia presented from home after an episode of unresponsiveness. #Syncope #AFSHAN #CKD -Cr went from 2.5 to 2 this am -likely improved from IV hydration -cont IV Fluids -d/allyn on 08/02 with 1.5 Cr -FU urine lytes, cr -Ca+ down from 9 to 8.3 likely from fluids. -Borderline hypocalcemia likely from hypoparathyroidism from thyroidectomy. -pending PTH -will monitor Dispo: We will continue to follow the patient. Thank you for this consultative opportunity. Visit type - Emergency Visit Emergency Visit: Yes ED Registration Date: 10/04/19 Care time: The patient presented to the Emergency Department on the above date and was hospitalized for further evaluation of their emergent condition. - New Patient This patient is new to me today: Yes Date on this admission: 10/14/19 - Critical Care Critical Care patient: No ATTENDING PHYSICIAN STATEMENT I saw and evaluated the patient. I reviewed the resident's note and discussed the case with the resident. I agree with the resident's findings and plan as documented. SUBJECTIVE: OBJECTIVE: ASSESSMENT AND PLAN:
--- NOTE | 2019-10-04 12:01 | PN ---
Teaching Attending Note Name of Resident: Ronnell Cannon ATTENDING PHYSICIAN STATEMENT I saw and evaluated the patient. I reviewed the resident's note and discussed the case with the resident. I agree with the resident's findings and plan as documented. SUBJECTIVE: Patient has no complaints and wants to go home. OBJECTIVE: Vital Signs Period Temp Pulse Resp BP Sys/Carmen Pulse Ox Last 24 Hr 97.3 F 62-87 18-22 112-187/50-66 97-99 HEART: S1S2, RRR LUNGS: Clear ABDOMEN: Soft, non-tender, non-distended, normal BS EXTREMITIES: No edema NEUROLOGICAL: Alert, oriented, mild left facial droop, tongue slightly deviates to left, speech clear, strength 5/5 in LUE/RUE and 4/5 in LLE/RLE Laboratory Results - last 24 hr 10/03/19 10/03/19 10/03/19 20:45 20:45 20:45 WBC 5.1 RBC 3.41 L Hgb 10.5 L Hct 31.8 L MCV 93.4 MCH 30.7 MCHC 32.9 RDW 15.2 Plt Count 125 L D MPV 11.4 H Absolute Neuts (auto) 3.4 Neutrophils % 66.8 D Lymphocytes % 18.6 D Monocytes % 11.5 H Eosinophils % 2.6 Basophils % 0.5 Nucleated RBC % 0 Retic Count Sodium 141 Potassium 4.8 Chloride 109 H Carbon Dioxide 23 Anion Gap 9 BUN 51.4 H Creatinine 2.5 H Est GFR (CKD-EPI)AfAm 20.49 Est GFR (CKD-EPI)NonAf 17.68 Random Glucose 142 H Hemoglobin A1c % Calcium 9.0 Phosphorus Magnesium 2.3 Iron TIBC Iron Saturation Unsaturated IBC Ferritin Total Bilirubin 0.5 AST 12 L ALT 19 Alkaline Phosphatase 73 Creatine Kinase 158 Creatine Kinase Index 0.9 CK-MB (CK-2) 1.5 Troponin I < 0.02 Total Protein 6.8 Albumin 3.9 Triglycerides Cholesterol Total LDL Cholesterol HDL Cholesterol TSH Free T4 10/04/19 10/04/19 10/04/19 05:40 05:40 05:40 WBC 5.1 RBC 3.18 L Hgb 9.8 L Hct 29.3 L MCV 91.9 MCH 30.9 MCHC 33.7 RDW 14.9 Plt Count 117 L MPV 11.6 H Absolute Neuts (auto) 2.5 Neutrophils % 48.4 D Lymphocytes % 35.7 D Monocytes % 10.2 Eosinophils % 4.7 H D Basophils % 1.0 Nucleated RBC % 0 Retic Count 1.53 H Sodium 145 Potassium 4.3 Chloride 116 H Carbon Dioxide 20 L Anion Gap 9 BUN 44.9 H Creatinine 2.0 H Est GFR (CKD-EPI)AfAm 26.84 Est GFR (CKD-EPI)NonAf 23.16 Random Glucose 84 Hemoglobin A1c % Calcium 8.3 L Phosphorus Magnesium Iron TIBC Iron Saturation Unsaturated IBC Ferritin Total Bilirubin 0.5 AST 11 L ALT 19 Alkaline Phosphatase 70 Creatine Kinase Creatine Kinase Index CK-MB (CK-2) Troponin I Total Protein 6.3 L Albumin 3.6 Triglycerides 75 Cholesterol 180 Total LDL Cholesterol 124 H HDL Cholesterol 33 L TSH Free T4 10/04/19 10/04/19 05:40 05:40 WBC RBC Hgb Hct MCV MCH MCHC RDW Plt Count MPV Absolute Neuts (auto) Neutrophils % Lymphocytes % Monocytes % Eosinophils % Basophils % Nucleated RBC % Retic Count Sodium Potassium Chloride Carbon Dioxide Anion Gap BUN Creatinine Est GFR (CKD-EPI)AfAm Est GFR (CKD-EPI)NonAf Random Glucose Hemoglobin A1c % 5.9 Calcium Phosphorus 4.0 Magnesium Iron 38 L TIBC 242 L Iron Saturation 15 L Unsaturated IBC 204 Ferritin 80.8 Total Bilirubin AST ALT Alkaline Phosphatase Creatine Kinase Creatine Kinase Index CK-MB (CK-2) Troponin I Total Protein Albumin Triglycerides Cholesterol Total LDL Cholesterol HDL Cholesterol TSH 0.01 L Free T4 2.19 H Current Medications Generic Name Dose Route Start Last Admin Trade Name Freq PRN Reason Stop Dose Admin Aspirin 81 mg 10/04/19 10:00 10/04/19 10:14 Ecotrin - PO 81 mg DAILY OLGA Administration Heparin Sodium (Porcine) 5,000 unit 10/04/19 06:00 10/04/19 06:34 Heparin - SQ 5,000 unit TID OLGA Administration Sodium Chloride 1,000 mls @ 75 mls/hr 10/04/19 05:19 10/04/19 06:30 Normal Saline - IV 75 mls/hr ASDIR OLGA Administration Levothyroxine Sodium 150 mcg 10/04/19 07:00 10/04/19 10:14 Synthroid - PO 150 mcg DAILY@0700 OLGA Administration ASSESSMENT AND PLAN: This is a 79 year old woman with a history of HTN, CVA, hypothyroidism, possible dementia who presented to the ED with left arm pain, slurred speech, and a period of unresponsiveness. 1. Possible TIA/acute CVA - Head CT showed chronic right occipital cortical infarct, mild periventricular and subcortical chronic microvascular ischemic changes - CTA of brain showed right occipital and parietal occipital junction encephalomalacia, bilateral exophthalmos - MRI of brain pending - Continue aspirin, Lipitor - Physical therapy - Swallow evaluation recommends regular diet with thin liquids, modified barium swallow 2. Acute kidney injury on stage 3 CKD - Improving with IV fluid and holding enalapril, HCTZ 3. HTN - Enalapril, HCTZ held secondary to AFSHAN 4. Hyperlipidemia - Lipitor started 5. Hypothyroidism - Continue Synthroid - decrease dose as FT4 is high, TSH is low, and she has exophthalmos on CT 6. Anemia secodnary to chronic illness - Monitor hgb
--- NOTE | 2019-10-04 12:41 | CON.NEURO ---
Consult Consult Specialty:: Shelly Referred by:: ER - History of Present Illness Chief Complaint: weakness History of Present Illness: this 79-year-old right-handed female patient with multiple medical problem including hypertension coronary artery disease questionable history of baseline dementia was at her usual status of health until yesterday came into the emergency room with an episode of loss of consciousness patient was in the emergency room 2:00 this morning I received a call from the emergency room resident that the patient is exhibiting new neurological symptoms with left facial droop stat CAT scan of the head revealed no evidence of acute pathology patient was also noted with the left leg weakness stroke NIH stroke scale was 3 I instructed the resident to do CT angiogram despite high creatinine level patient was stabilized the decision was made not to intervene with any thrombectomy patient was not transferred I so the patient 840 this morning in the emergency room patient was Advised no facial droopiness legs are moving symmetrically with downgoing plantars patient was complaining of being hungry. Patient was alert awake and attentive with normal speech. 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: Yes: CVA, Dementia Cardio/Vascular: Yes: HTN Endocrine: Yes: Hypothyroidism - Alcohol/Substance Use Hx Alcohol Use: No - Smoking History Smoking history: Never smoked Have you smoked in the past 12 months: No Home Medications - Allergies Allergies/Adverse Reactions: Allergies Allergy/AdvReac Type Severity Reaction Status Date / Time No Known Allergies Allergy Verified 10/03/19 19:41 - Home Medications Home Medications: Ambulatory Orders Levothyroxine Sodium [Levo-T] 150 mcg PO DAILY 07/31/18 Enalapril/Hydrochlorothiazide [Vaseretic 10-25 mg Tablet] 1 each PO DAILY Meloxicam 7.5 mg PO DAILY 10/04/19 Family Medical History Family History: Unremarkable Review of Systems - Review of Systems Constitutional: reports: No Symptoms Eyes: reports: No Symptoms HENT: reports: No Symptoms Neurological: reports: Headache, Incoordination, Numbness, Parasthesia Physical Exam-Neuro Vital Signs: Vital Signs Temperature 97.3 F L 10/03/19 19:43 Pulse Rate 87 10/04/19 05:00 Respiratory Rate 18 10/04/19 05:00 Blood Pressure 112/50 L 10/04/19 05:00 O2 Sat by Pulse Oximetry (%) 98 10/04/19 05:00 Constitutional: Yes: Well Nourished Neck: Yes: WNL Cardiovascular: Yes: WNL Labs: CBC, BMP 10/04/19 05:40 10/04/19 05:40 - Neuro Exam Level Of Consciousness: Yes: Oriented to Person, Oriented to Place, Oriented to Time Eyes: Yes: PERRLA Speech: WNL Dominant Hand: Right Cranial Nerves II-XII Intact: Yes Gag: Present DTR's: 1+ Left Bicep, 1+ Right Bicep, 1+ Left Tricep, 1+ Right Tricep Babinski: Absent Response to light touch: Abnormal Response to pain prick: Abnormal Response to temperature: Abnormal Motor Strength: 3/5: Left Arm, Right Arm, Left Leg, Right Leg Imaging - Results Cat Scan: Image Reviewed Problem List - Problems (1) Transient ischemic attack Code(s): G45.9 - TRANSIENT CEREBRAL ISCHEMIC ATTACK, UNSPECIFIED (2) Syncope Code(s): R55 - SYNCOPE AND COLLAPSE Assessment/Plan reversal of the patient neurological symptoms is a contraindication for thrombolysis. Reversal of the patient and neurological symptoms in the absence of blood clot on the CT angiogram is contraindication for thrombectomy. Questionable TIA. Questionable vasovagal syncope. 1. Admit to telemetry. 2. MRI of the brain with no contrast. 3. Echocardiogram. 4. Holter monitor. 5. Aspirin 81 mg once daily. 6. Statin. 8. Speech and swallow evaluation. 9. SCDs. Thank you very much for allowing me to be part of this patient's neurological care. Susan Bravo M.D.
--- NOTE | 2019-10-04 13:21 | PN ---
Physical Exam: SUBJECTIVE: Patient seen and examined. Asymtpomatic and afebrile. No overnight events or issues. Denies f/c/n/v/d/sob OBJECTIVE: Vital Signs Period Temp Pulse Resp BP Sys/Carmen Pulse Ox Last 24 Hr 97.3 F 62-87 18-22 112-187/50-66 97-99 GENERAL: pt knows where she is, not the name of the hospital, she knows her name, but is forgetful of her episode. The patient is alert, attentive, and oriented. Speech is clear with good repetition, comprehension, and naming. She recalls 3/3 objects at 5 minutes. EYES: PERRL, extraocular movements intact, sclera anicteric, conjunctiva clear. No ptosis. Left nasolabial fold flattened, sensation 5/5 b/l upper and lower face. ENT: moist mucous membranes. There is no tenderness over the scalp or neck and no bruits over the eyes or at the neck. There is no proptosis, lid swelling, conjunctival injection, or chemosis. NECK: Trachea midline, full range of motion, supple. LUNGS: Breath sounds equal, clear to auscultation bilaterally, no wheezes, no crackles, HEART: Regular rate and rhythm, S1, S2 without murmur, rub or gallop. ABDOMEN: Soft, nontender, nondistended, normoactive bowel sounds, no guarding EXTREMITIES: 2+ pulses, warm, well-perfused, no edema. NEUROLOGICAL: Cranial nerves II through XII grossly intact b/l. Mild tongue deviation to the left. There is no pronator drift of out-stretched arms. Muscle bulk and tone are normal. Strength is full bilaterally. Reflexes are 2+ and symmetric at the biceps, knees. Rapid alternating movements and fine finger movements are intact SKIN: Warm, dry, normal turgor, no rashes Laboratory Results - last 24 hr 10/03/19 10/03/19 10/03/19 20:45 20:45 20:45 WBC 5.1 RBC 3.41 L Hgb 10.5 L Hct 31.8 L MCV 93.4 MCH 30.7 MCHC 32.9 RDW 15.2 Plt Count 125 L D MPV 11.4 H Absolute Neuts (auto) 3.4 Neutrophils % 66.8 D Lymphocytes % 18.6 D Monocytes % 11.5 H Eosinophils % 2.6 Basophils % 0.5 Nucleated RBC % 0 Retic Count Sodium 141 Potassium 4.8 Chloride 109 H Carbon Dioxide 23 Anion Gap 9 BUN 51.4 H Creatinine 2.5 H Est GFR (CKD-EPI)AfAm 20.49 Est GFR (CKD-EPI)NonAf 17.68 Random Glucose 142 H Hemoglobin A1c % Calcium 9.0 Phosphorus Magnesium 2.3 Iron TIBC Iron Saturation Unsaturated IBC Ferritin Total Bilirubin 0.5 AST 12 L ALT 19 Alkaline Phosphatase 73 Creatine Kinase 158 Creatine Kinase Index 0.9 CK-MB (CK-2) 1.5 Troponin I < 0.02 Total Protein 6.8 Albumin 3.9 Triglycerides Cholesterol Total LDL Cholesterol HDL Cholesterol TSH Free T4 10/04/19 10/04/19 10/04/19 05:40 05:40 05:40 WBC 5.1 RBC 3.18 L Hgb 9.8 L Hct 29.3 L MCV 91.9 MCH 30.9 MCHC 33.7 RDW 14.9 Plt Count 117 L MPV 11.6 H Absolute Neuts (auto) 2.5 Neutrophils % 48.4 D Lymphocytes % 35.7 D Monocytes % 10.2 Eosinophils % 4.7 H D Basophils % 1.0 Nucleated RBC % 0 Retic Count 1.53 H Sodium 145 Potassium 4.3 Chloride 116 H Carbon Dioxide 20 L Anion Gap 9 BUN 44.9 H Creatinine 2.0 H Est GFR (CKD-EPI)AfAm 26.84 Est GFR (CKD-EPI)NonAf 23.16 Random Glucose 84 Hemoglobin A1c % Calcium 8.3 L Phosphorus Magnesium Iron TIBC Iron Saturation Unsaturated IBC Ferritin Total Bilirubin 0.5 AST 11 L ALT 19 Alkaline Phosphatase 70 Creatine Kinase Creatine Kinase Index CK-MB (CK-2) Troponin I Total Protein 6.3 L Albumin 3.6 Triglycerides 75 Cholesterol 180 Total LDL Cholesterol 124 H HDL Cholesterol 33 L TSH Free T4 10/04/19 10/04/19 05:40 05:40 WBC RBC Hgb Hct MCV MCH MCHC RDW Plt Count MPV Absolute Neuts (auto) Neutrophils % Lymphocytes % Monocytes % Eosinophils % Basophils % Nucleated RBC % Retic Count Sodium Potassium Chloride Carbon Dioxide Anion Gap BUN Creatinine Est GFR (CKD-EPI)AfAm Est GFR (CKD-EPI)NonAf Random Glucose Hemoglobin A1c % 5.9 Calcium Phosphorus 4.0 Magnesium Iron 38 L TIBC 242 L Iron Saturation 15 L Unsaturated IBC 204 Ferritin 80.8 Total Bilirubin AST ALT Alkaline Phosphatase Creatine Kinase Creatine Kinase Index CK-MB (CK-2) Troponin I Total Protein Albumin Triglycerides Cholesterol Total LDL Cholesterol HDL Cholesterol TSH 0.01 L Free T4 2.19 H Active Medications Generic Name Dose Route Start Last Admin Trade Name Zarina PRN Reason Stop Dose Admin Aspirin 81 mg 10/04/19 10:00 10/04/19 10:14 Ecotrin - PO 81 mg DAILY OLGA Administration Heparin Sodium (Porcine) 5,000 unit 10/04/19 06:00 10/04/19 06:34 Heparin - SQ 5,000 unit TID OLGA Administration Sodium Chloride 1,000 mls @ 75 mls/hr 10/04/19 05:19 10/04/19 06:30 Normal Saline - IV 75 mls/hr ASDIR OLGA Administration Levothyroxine Sodium 150 mcg 10/04/19 07:00 10/04/19 10:14 Synthroid - PO 150 mcg DAILY@0700 OLGA Administration ASSESSMENT/PLAN: 79 y/o F, right handed, pmh of htn, CAD, questionable hx of dementia, previous right sided CVA, presents to the ED for left neck pain radiating down to her left arm and fingers, w/ tingling, numbness and rigidity w/ dysarthria accompanied by a minor episode of amnesia/loc is admitted for TIA #TIA likely 2/2 to carotid thrombi r/o conditions that can present like TIA's- migraine auras, syncope, seizures, transient global amnesia Duplex carotid- mild to moderate plaque on the left carotid, intimal thickening and minimal plaque on the right carotid symptoms presenting at 2 am pt outside of tPA window Neuro consulted- Dr Aguirre, recom asa and statin (Aspirin 81 mg, Lipitor 80 mg) MRI of the brain Head CT: neg CTA head is negative for acute changes, right chronic occipital cortical infract seen My NIH score 4 ECHO ordered will monitor Neuro checks seizure precautions #AFSHAN likely 2/2 to prerenal likely from volume depletion cre clearance 28% Family reports weakness, decreased PO intake Pt appears clinically dehydrated Cont IVF BUN/Cre improving #Normocytic anemia likely 2/2 to anemia of chronic disease Iron low, iron saturation low, TIBC low, Ferritin normal cont to monitor #Graves disease TSH low, with T4 elevated + exophthalmos decrease levothyroxine #HLD elevated lipids can continue #DVTppx Heparin sq #FEN IVF 75 Sodium controlled diet monitor lytes Dispo: cont asa, statin, MRI of brain, Head CT Visit type - Emergency Visit Emergency Visit: Yes ED Registration Date: 10/04/19 Care time: The patient presented to the Emergency Department on the above date and was hospitalized for further evaluation of their emergent condition. - New Patient This patient is new to me today: Yes Date on this admission: 10/05/19 - Critical Care Critical Care patient: No - Discharge Referral Referred to [facility] Med P.C.: No ATTENDING PHYSICIAN STATEMENT I saw and evaluated the patient. I reviewed the resident's note and discussed the case with the resident. I agree with the resident's findings and plan as documented. SUBJECTIVE: OBJECTIVE: ASSESSMENT AND PLAN:
--- NOTE | 2019-10-04 15:02 | ECHO ---
Name: SAWYER, VALDORA Exam:Adult Echocardiogram Study Date: 10/04/2019 01:21 PM Age: 79 yrs Reason For Study: CVA MMode/2D Measurements & Calculations IVSd: 0.92 cm Ao root diam: 3.1 cm LVIDd: 4.6 cm LA dimension: 3.6 cm LVIDs: 3.4 cm LVPWd: 1.0 cm LVPWs: 1.2 cm EDV(Teich): 97.7 ml ESV(Teich): 46.6 ml LVOT diam: 2.0 cm LAV (MOD-bp): 52.0 ml TAPSE: 2.2 cm RV S Juwan: 11.1 cm/sec Doppler Measurements & Calculations MV E max juwan: 51.3 cm/sec Ao V2 max: 109.8 cm/sec MV A max juwan: 92.8 cm/sec Ao max P.8 mmHg MV E/A: 0.55 OMAR(V,D): 2.6 cm2 MV dec time: 0.25 sec LV V1 max P.5 mmHg TR max juwan: 255.2 cm/sec LV V1 max: 93.8 cm/sec TR max P.0 mmHg PA V2 max: 96.4 cm/sec Med Peak E' Juwan: 4.9 cm/sec PA max P.8 mmHg Med E/e': 10.4 Lat Peak E' Juwan: 7.0 cm/sec Lat E/e': 7.3 Left Ventricle The left ventricular size, thickness and function are normal. Ejection Fraction = 60%. The transmitra l spectral Doppler flow pattern is suggestive of impaired LV relaxation. Right Ventricle The right ventricle is normal in size and function. Atria Normal left and right atrial size and function. Mitral Valve There is mild mitral annular calcification. The mitral valve leaflets appear thickened, but open well . There is no mitral regurgitation noted. Tricuspid Valve The tricuspid valve is not well visualized, but is grossly normal. There is Trace to mild tricuspid regurgitation. Right ventricular systolic pressure is 31 mmhg. Assuming the RA pressure is 5 mmHg. Aortic Valve There is mild to moderate aortic sclerosis.;. No hemodynamically significant valvular aortic stenosis . Pulmonic Valve The pulmonic valve is not well visualized. Great Vessels The aortic root is normal size. Pericardium/Pleura There is no pericardial effusion. Interpretation Summary The left ventricular size, thickness and function are normal. Ejection Fraction = 60%. The right ventricle is normal in size and function. Normal left and right atrial size and function. There is mild to moderate aortic sclerosis.No hemodynamically significant valvular aortic stenosis. There is mild mitral annular calcification. The mitral valve leaflets appear thickened, but open well . MD Daniella Hernandez 10/04/2019 03:01 PM
[2019-10-04] MEDS: LEVOTHYROXINE NA 125 MCG TABLET (FP) PO SCH (16:20)
[2019-10-04 16:41] VITALS: BMI 27.5
--- NOTE | 2019-10-04 19:23 | PN ---
Teaching Attending Note Name of Resident: Jasen Mishra (Nephrology) ATTENDING PHYSICIAN STATEMENT I saw and evaluated the patient. I reviewed the resident's note and discussed the case with the resident. I agree with the resident's findings and plan as documented. Renal Pt is a 79 year old female with pmhx of htn, ckd, cva, hypothyroidism, and dementia who presents to the ER with left neck pain. She then had left arm pain. 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 She has history of CKD and is known to me from previous admissions. pmhx ckd cva htn hypothyroidism nkda social hx denies family hx denies ros see hpi Current Medications Generic Name Dose Route Start Last Admin Trade Name Freq PRN Reason Stop Dose Admin Aspirin 81 mg 10/04/19 10:00 10/04/19 10:14 Ecotrin - PO 81 mg DAILY OLGA Administration Atorvastatin Calcium 80 mg 10/04/19 22:00 Lipitor - PO HS OLGA Heparin Sodium (Porcine) 5,000 unit 10/04/19 06:00 10/04/19 15:07 Heparin - SQ 5,000 unit TID OLGA Administration Sodium Chloride 1,000 mls @ 75 mls/hr 10/04/19 05:19 10/04/19 06:30 Normal Saline - IV 75 mls/hr ASDIR OLGA Administration Levothyroxine Sodium 125 mcg 10/04/19 15:45 10/04/19 16:20 Synthroid - PO 125 mcg DAILY@0700 OLGA Administration Last Vital Signs Temp Pulse Resp BP Pulse Ox 98.0 F 60 18 165/81 95 10/04/19 16:26 10/04/19 16:26 10/04/19 16:26 10/04/19 16:26 10/04/19 16:26 Laboratory Tests 08/01/18 08/02/18 10/03/19 05:08 07:50 20:45 Creatinine 1.8 H 1.5 H 2.5 H 10/04/19 05:40 Creatinine 2.0 H cardio s1s2 pulm clear GI soft ext neg edema neuro awake and alert skin neg rash Impression 1. AFSHAN 2. HTN 3. r/o cva 4. dementia 5. hx cva 6. hypothyroidism 7. ckd Plan - nonprofit fundraiser is improving - can change fluids to 1/2 ns and decrease rate - repeat labs in am - avoid nephrotoxins - avoid nsaids
[2019-10-04] MEDS ORDERED: SODIUM CHLORIDE 0.45% 1,000 ML IV SCH (19:30)
[2019-10-04] MEDS ORDERED: ATORVASTATIN CA 80 MG TABLET (FP) PO SCH (22:00)
[2019-10-04] MEDS ORDERED: ATORVASTATIN CA 40 MG TABLET (FP) PO SCH (22:00)
[2019-10-05] MEDS: HEPARIN NA (PORCINE) 5,000 UNITS/ML 1ML VIAL SQ SCH (05:47)
[2019-10-05] MEDS: LEVOTHYROXINE NA 125 MCG TABLET (FP) PO SCH (06:14)
[2019-10-05 07:24] LABS: HEMATOCRIT 29.1 % (32.4-45.2); HEMOGLOBIN 9.8 GM/dL (10.7-15.3); MCHC 33.9 g/dl (32.0-36.0); MEAN CELL VOLUME 91.5 fl (80-96); PLATELET COUNT 127 K/MM3 (134-434); RBC 3.18 M/mm3 (3.60-5.2); RDW 15.3 % (11.6-15.6); WHITE BLOOD COUNT 4.5 K/mm3 (4.0-10.0)
[2019-10-05 07:46] LABS: ALBUMIN 3.5 g/dl (3.4-5.0); BILIRUBIN,TOTAL 0.5 mg/dL (0.2-1); BLOOD UREA NITROGEN 38.6 mg/dL (7-18); CALCIUM 8.9 mg/dL (8.5-10.1); CREATININE 1.6 mg/dL (0.55-1.3); PHOSPHOROUS 4.3 mg/dL (2.5-4.9); POTASSIUM 5.2 mmol/L (3.5-5.1); TOT PROT 6.3 g/dl (6.4-8.2)
--- NOTE | 2019-10-05 08:46 | PN ---
Physical Exam: SUBJECTIVE: Patient seen and examined. Asymtpomatic and afebrile. No overnight events or issues. Denies f/c/n/v/d/sob OBJECTIVE: Vital Signs Period Temp Pulse Resp BP Sys/Carmen Pulse Ox Last 24 Hr 97.9 F-98.1 F 55-64 16-18 108-184/59-82 95-97 GENERAL: pt knows where she is, not the name of the hospital, she knows her name, but is forgetful of her episode. The patient is alert, attentive, and oriented. Speech is clear with good repetition, comprehension, and naming. She recalls 2/3 objects at 5 minutes. EYES: PERRL, extraocular movements intact, sclera anicteric, conjunctiva clear. No ptosis. Left nasolabial fold flattened, sensation 5/5 b/l upper and lower face. ENT: moist mucous membranes. There is no tenderness over the scalp or neck and no bruits over the eyes or at the neck. There is no proptosis, lid swelling, conjunctival injection, or chemosis. NECK: Trachea midline, full range of motion, supple. LUNGS: Breath sounds equal, clear to auscultation bilaterally, no wheezes, no crackles, HEART: Regular rate and rhythm, S1, S2 without murmur, rub or gallop. ABDOMEN: Soft, nontender, nondistended, normoactive bowel sounds, no guarding EXTREMITIES: 2+ pulses, warm, well-perfused, no edema. NEUROLOGICAL: Cranial nerves II through XII grossly intact b/l. Mild tongue deviation to the left. There is no pronator drift of out-stretched arms. Muscle bulk and tone are normal. Strength is full bilaterally. Reflexes are 2+ and symmetric at the biceps, knees. Rapid alternating movements and fine finger movements are intact SKIN: Warm, dry, normal turgor, no rashes Laboratory Results - last 24 hr 10/04/19 10/04/19 10/05/19 05:40 05:40 05:40 WBC 4.5 RBC 3.18 L Hgb 9.8 L Hct 29.1 L MCV 91.5 MCH 31.0 MCHC 33.9 RDW 15.3 Plt Count 127 L MPV 12.0 H Sodium Potassium Chloride Carbon Dioxide Anion Gap BUN Creatinine Est GFR (CKD-EPI)AfAm Est GFR (CKD-EPI)NonAf Random Glucose Hemoglobin A1c % 5.9 Calcium Phosphorus 4.0 Magnesium Iron 38 L TIBC 242 L Iron Saturation 15 L Unsaturated IBC 204 Ferritin 80.8 Total Bilirubin AST ALT Alkaline Phosphatase Total Protein Albumin TSH 0.01 L Free T4 2.19 H 10/05/19 05:40 WBC RBC Hgb Hct MCV MCH MCHC RDW Plt Count MPV Sodium 143 Potassium 5.2 H Chloride 114 H Carbon Dioxide 23 Anion Gap 6 L BUN 38.6 H Creatinine 1.6 H Est GFR (CKD-EPI)AfAm 35.15 Est GFR (CKD-EPI)NonAf 30.33 Random Glucose 83 Hemoglobin A1c % Calcium 8.9 Phosphorus 4.3 Magnesium 2.0 Iron TIBC Iron Saturation Unsaturated IBC Ferritin Total Bilirubin 0.5 AST 11 L ALT 19 Alkaline Phosphatase 68 Total Protein 6.3 L Albumin 3.5 TSH Free T4 Active Medications Generic Name Dose Route Start Last Admin Trade Name Freq PRN Reason Stop Dose Admin Aspirin 81 mg 10/04/19 10:00 10/04/19 10:14 Ecotrin - PO 81 mg DAILY OLGA Administration Atorvastatin Calcium 80 mg 10/04/19 22:00 10/04/19 21:16 Lipitor - PO 80 mg HS OLGA Administration Heparin Sodium (Porcine) 5,000 unit 10/04/19 06:00 10/05/19 05:47 Heparin - SQ Not Given TID [facility] Sodium Chloride 1,000 mls @ 50 mls/hr 10/04/19 19:30 10/04/19 21:16 1/2 Normal Saline IV 10/05/19 19:24 50 mls/hr ASDIR OLGA Administration Levothyroxine Sodium 125 mcg 10/04/19 15:45 10/05/19 06:14 Synthroid - PO 125 mcg DAILY@0700 OLGA Administration Sodium Zirconium Cyclosilicate 10 gm 10/05/19 10:00 Lokelma PO DAILY OLGA ASSESSMENT/PLAN: 79 y/o F, right handed, pmh of htn, CAD, questionable hx of dementia, previous right sided CVA, presents to the ED for left neck pain radiating down to her left arm and fingers, w/ tingling, numbness and rigidity w/ dysarthria accompanied by a minor episode of amnesia/loc is admitted for TIA #TIA likely 2/2 to carotid thrombi r/o conditions that can present like TIA's- migraine auras, syncope, seizures, transient global amnesia Duplex carotid- mild to moderate plaque on the left carotid, intimal thickening and minimal plaque on the right carotid symptoms presenting at 2 am pt outside of tPA window Neuro consulted- Dr Aguirre, recom asa and statin (Aspirin 81 mg, Lipitor 80 mg) MRI of the brain: no acute changes, chronic occipital cortical infract Head CT: neg CTA head is negative for acute changes, right chronic occipital cortical infract seen ECHO- EF 60%, mild to moderate aortic sclerosis, mild annular calcification, MV thickening will monitor Neuro checks seizure precautions Speech/Swallow eval appreciated Barium swallow ordered- due to coughing and difficulty clearing throat #AFSHAN likely 2/2 to prerenal likely from volume depletion cre clearance 28% Family reports weakness, decreased PO intake Pt appears clinically dehydrated Cont IVF BUN/Cre improving, Cre 1.6 today #Normocytic anemia likely 2/2 to anemia of chronic disease Iron low, iron saturation low, TIBC low, Ferritin normal cont to monitor #Graves disease likely TSH low, with T4 elevated + exophthalmos decrease levothyroxine 125 mcg daily Will recom outpt Endocrinology + Ophthalmology #HLD elevated lipids can continue #DVTppx Heparin sq #FEN IVF 75 Sodium controlled diet monitor lytes Dispo: cont asa, statin, f/u Barium swallow Visit type - Emergency Visit Emergency Visit: Yes ED Registration Date: 10/04/19 Care time: The patient presented to the Emergency Department on the above date and was hospitalized for further evaluation of their emergent condition. - New Patient This patient is new to me today: Yes Date on this admission: 10/05/19 - Critical Care Critical Care patient: No - Discharge Referral Referred to [facility] Med P.C.: No ATTENDING PHYSICIAN STATEMENT I saw and evaluated the patient. I reviewed the resident's note and discussed the case with the resident. I agree with the resident's findings and plan as documented. SUBJECTIVE: OBJECTIVE: ASSESSMENT AND PLAN:
[2019-10-05] MEDS ORDERED: SODIUM ZIRCONIUM CYCLOSILICATE (LOKELMA) 5 GM PACKET PO SCH ×2 (10:00)
[2019-10-05] MEDS: ASPIRIN COATED 81 MG TABLET.EC PO SCH (11:06)
--- NOTE | 2019-10-05 11:12 | PN ---
Teaching Attending Note Name of Resident: Ronnell Cannon ATTENDING PHYSICIAN STATEMENT I saw and evaluated the patient. I reviewed the resident's note and discussed the case with the resident. I agree with the resident's findings and plan as documented. SUBJECTIVE: Patient has no complaints and would like to go home. OBJECTIVE: Vital Signs Period Temp Pulse Resp BP Sys/Carmen Pulse Ox Last 24 Hr 97.2 F-98.1 F 55-64 16-18 108-184/58-82 95-97 HEART: S1S2, RRR LUNGS: Clear ABDOMEN: Soft, non-tender, non-distended, normal BS EXTREMITIES: No edema Laboratory Results - last 24 hr 10/05/19 10/05/19 05:40 05:40 WBC 4.5 RBC 3.18 L Hgb 9.8 L Hct 29.1 L MCV 91.5 MCH 31.0 MCHC 33.9 RDW 15.3 Plt Count 127 L MPV 12.0 H Sodium 143 Potassium 5.2 H Chloride 114 H Carbon Dioxide 23 Anion Gap 6 L BUN 38.6 H Creatinine 1.6 H Est GFR (CKD-EPI)AfAm 35.15 Est GFR (CKD-EPI)NonAf 30.33 Random Glucose 83 Calcium 8.9 Phosphorus 4.3 Magnesium 2.0 Total Bilirubin 0.5 AST 11 L ALT 19 Alkaline Phosphatase 68 Total Protein 6.3 L Albumin 3.5 Current Medications Generic Name Dose Route Start Last Admin Trade Name Freq PRN Reason Stop Dose Admin Aspirin 81 mg 10/04/19 10:00 10/05/19 11:06 Ecotrin - PO 81 mg DAILY OLGA Administration Atorvastatin Calcium 80 mg 10/04/19 22:00 10/04/19 21:16 Lipitor - PO 80 mg HS OLGA Administration Heparin Sodium (Porcine) 5,000 unit 10/04/19 06:00 10/05/19 05:47 Heparin - SQ Not Given TID OLGA Sodium Chloride 1,000 mls @ 50 mls/hr 10/04/19 19:30 10/04/19 21:16 1/2 Normal Saline IV 10/05/19 19:24 50 mls/hr ASDIR OLGA Administration Levothyroxine Sodium 125 mcg 10/04/19 15:45 10/05/19 06:14 Synthroid - PO 125 mcg DAILY@0700 OLGA Administration Sodium Zirconium Cyclosilicate 10 gm 10/05/19 10:00 10/05/19 11:06 Lokelma PO 10 gm DAILY OLGA Administration ASSESSMENT AND PLAN: This is a 79 year old woman with a history of HTN, CVA, hypothyroidism, possible dementia who presented to the ED with left arm pain, slurred speech, and a period of unresponsiveness. 1. TIA, history of CVA - Head CT showed chronic right occipital cortical infarct, mild periventricular and subcortical chronic microvascular ischemic changes - CTA of brain showed right occipital and parietal occipital junction encephalomalacia, bilateral exophthalmos - MRI of brain shows chronic right occipital cortical infarct with encephalomalacia, peripheral gliosis; supratentorial chronic periventricular subcortical white matter microangiopathic changes, gliosis - Continue aspirin, Lipitor - Ambulated 150 feet with rolling walker - Modified barium swallow is normal 2. Acute kidney injury on stage 3 CKD - Improving with IV fluid and holding enalapril, HCTZ 3. HTN - Enalapril, HCTZ held secondary to AFSHAN 4. Hyperlipidemia - Continue Lipitor 5. Hypothyroidism - Synthroid decreased dose as FT4 is high, TSH is low, and she has exophthalmos on CT - Outpatient endocrine follow-up 6. Anemia secodnary to chronic illness - Stable 7. Hyperkalemia - Mild - Given Lokelma 8. Disposition - Ok for discharge
--- NOTE | 2019-10-05 11:52 | PN ---
Progress Note, Physician History of Present Illness: Pt seen and examined at bedside. She is awake and alert. She denies shortness of breath. - Current Medication List Current Medications: Active Medications Aspirin (Ecotrin -) 81 mg PO DAILY [facility] Last Admin: 10/05/19 11:06 Dose: 81 mg Atorvastatin Calcium (Lipitor -) 80 mg PO HS [facility] Last Admin: 10/04/19 21:16 Dose: 80 mg Heparin Sodium (Porcine) (Heparin -) 5,000 unit SQ TID [facility] Last Admin: 10/05/19 05:47 Dose: Not Given Sodium Chloride (1/2 Normal Saline) 1,000 mls @ 50 mls/hr IV ASDIR [facility] Stop: 10/05/19 19:24 Last Admin: 10/04/19 21:16 Dose: 50 mls/hr Levothyroxine Sodium (Synthroid -) 125 mcg PO DAILY@0700 [facility] Last Admin: 10/05/19 06:14 Dose: 125 mcg Sodium Zirconium Cyclosilicate (Lokelma) 10 gm PO DAILY [facility] Last Admin: 10/05/19 11:06 Dose: 10 gm - Objective Vital Signs: Vital Signs Temperature 97.2 F L 10/05/19 10:00 Pulse Rate 57 L 10/05/19 10:00 Respiratory Rate 18 10/05/19 10:00 Blood Pressure 147/58 L 10/05/19 10:00 O2 Sat by Pulse Oximetry (%) 97 10/04/19 21:00 Constitutional: Yes: Calm HENT: Yes: Atraumatic Cardiovascular: Yes: S1, S2 Respiratory: Yes: CTA Bilaterally Gastrointestinal: Yes: Normal Bowel Sounds, Soft Genitourinary: Yes: WNL Musculoskeletal: Yes: WNL Edema: No Integumentary: Yes: WNL Neurological: Yes: Oriented Psychiatric: Yes: Oriented Labs: CBC, BMP 10/05/19 05:40 10/05/19 05:40 Problem List - Problems (1) Transient ischemic attack Code(s): G45.9 - TRANSIENT CEREBRAL ISCHEMIC ATTACK, UNSPECIFIED (2) HTN (hypertension) Code(s): I10 - ESSENTIAL (PRIMARY) HYPERTENSION (3) AFSHAN (acute kidney injury) Code(s): N17.9 - ACUTE KIDNEY FAILURE, UNSPECIFIED Assessment/Plan Current Medications Generic Name Dose Route Start Last Admin Trade Name Freq PRN Reason Stop Dose Admin Aspirin 81 mg 10/04/19 10:00 10/05/19 11:06 Ecotrin - PO 81 mg DAILY OLGA Administration Atorvastatin Calcium 80 mg 10/04/19 22:00 10/04/19 21:16 Lipitor - PO 80 mg HS OLGA Administration Heparin Sodium (Porcine) 5,000 unit 10/04/19 06:00 10/05/19 05:47 Heparin - SQ Not Given TID OLGA Sodium Chloride 1,000 mls @ 50 mls/hr 10/04/19 19:30 10/04/19 21:16 1/2 Normal Saline IV 10/05/19 19:24 50 mls/hr ASDIR OLGA Administration Levothyroxine Sodium 125 mcg 10/04/19 15:45 10/05/19 06:14 Synthroid - PO 125 mcg DAILY@0700 OLGA Administration Sodium Zirconium Cyclosilicate 10 gm 10/05/19 10:00 10/05/19 11:06 Lokelma PO 10 gm DAILY OLGA Administration Impression 1. AFSHAN 2. HTN 3. r/o cva 4. dementia 5. hx cva 6. hypothyroidism 7. ckd 8. hyperkalemia Plan - renal function improving - pt did get a dose of lokelma - low potassium diet - monitor bp - avoid nephrotoxins - avoid nsaids
--- NOTE | 2019-10-05 12:11 | PN ---
Progress Note, INSOLVENCY CONSULTANT - Note Progress Note: Selected Entries 10/04/19 10/04/19 10/04/19 14:30 16:26 21:46 Supper Temperature 98.0 F 98.0 F 97.9 F 10/04/19 10/05/19 10/05/19 21:49 01:00 06:00 Supper 100% Temperature 98.1 F 98.0 F 10/05/19 10:00 Supper Temperature 97.2 F L Laboratory Tests 10/05/19 05:40 WBC 4.5 More verbal than yesterday but with sporadic impaired ST memory. Eg remembered coughing on adwoa cracker yesterday, does not recal me, or dinner last night. Good historian for work hx, family, addresses, etc. Less delay today in propositional speech but intermittent. MRI noted. Regular diet ordered. Swallowing reassessed with persistent throat clearing with a adwoa cracker. She reports that she "always needs to wash down food" with a drink. Concur with MBS ordered.
[2019-10-05 14:34] VITALS: BP 143/58; PULSE 62; TEMP 98
--- NOTE | 2019-10-05 15:00 | DS ---
Physical Exam: SUBJECTIVE: Patient seen and examined. Asymtpomatic and afebrile. No overnight events or issues. Denies f/c/n/v/d/sob OBJECTIVE: Vital Signs Period Temp Pulse Resp BP Sys/Carmen Pulse Ox Last 24 Hr 97.2 F-98.1 F 55-64 16-18 108-165/58-82 95-97 PHYSICAL EXAM GENERAL: pt knows where she is, not the name of the hospital, she knows her name, but is forgetful of her episode. The patient is alert, attentive, and oriented. Speech is clear with good repetition, comprehension, and naming. She recalls 2/3 objects at 5 minutes. EYES: PERRL, extraocular movements intact, sclera anicteric, conjunctiva clear. No ptosis. Left nasolabial fold flattened, sensation 5/5 b/l upper and lower face. ENT: moist mucous membranes. There is no tenderness over the scalp or neck and no bruits over the eyes or at the neck. There is no proptosis, lid swelling, conjunctival injection, or chemosis. NECK: Trachea midline, full range of motion, supple. LUNGS: Breath sounds equal, clear to auscultation bilaterally, no wheezes, no crackles, HEART: Regular rate and rhythm, S1, S2 without murmur, rub or gallop. ABDOMEN: Soft, nontender, nondistended, normoactive bowel sounds, no guarding EXTREMITIES: 2+ pulses, warm, well-perfused, no edema. NEUROLOGICAL: Cranial nerves II through XII grossly intact b/l. Mild tongue deviation to the left. There is no pronator drift of out-stretched arms. Muscle bulk and tone are normal. Strength is full bilaterally. Reflexes are 2+ and symmetric at the biceps, knees. Rapid alternating movements and fine finger movements are intact SKIN: Warm, dry, normal turgor, no rashes LABS Laboratory Results - last 24 hr 10/04/19 10/05/19 10/05/19 05:40 05:40 05:40 WBC 4.5 RBC 3.18 L Hgb 9.8 L Hct 29.1 L MCV 91.5 MCH 31.0 MCHC 33.9 RDW 15.3 Plt Count 127 L MPV 12.0 H Sodium 143 Potassium 5.2 H Chloride 114 H Carbon Dioxide 23 Anion Gap 6 L BUN 38.6 H Creatinine 1.6 H Est GFR (CKD-EPI)AfAm 35.15 Est GFR (CKD-EPI)NonAf 30.33 Random Glucose 83 Calcium 8.9 Phosphorus 4.3 Magnesium 2.0 Total Bilirubin 0.5 AST 11 L ALT 19 Alkaline Phosphatase 68 Total Protein 6.3 L Albumin 3.5 PTH Intact 69 H HOSPITAL COURSE: Date of Admission:10/04/19 79 y/o F, right handed, pmh of htn, CAD, questionable hx of dementia, previous right sided CVA, presents to the ED for left neck pain radiating down to her left arm and fingers, w/ tingling, numbness and rigidity w/ dysarthria accompanied by a minor episode of amnesia/loc is admitted for questionable TIA. Pts symptoms resolved upon arrival to the ED. Pt also appeared to have left facial nasolabial flattening, dysarthria and amnesia so Head CT was taken to r/o stroke, which came back negative. Dr. Aguirre/Neurology was consulted, recommended asa and statins, while NIH = 4. CTA of the head was negative for acute findings as well. MRI of the brain also came back with only chronic occipital cortical infract, no acute findings. Duplex of carotids showed mild to moderate plaque on the left carotid, intimal thickening and minimal plaque on the right carotid, which could have very well been the etiology of the thrombi causing the TIA. Pt was also worked up with ECHO showing EF 60%, mild to moderate aortic sclerosis, mild annular calcification, MV thickening. Pt was monitored overnight and was stable. Her Imaging also showed that she had exopthalmos while being on levothyroxine. Pts over treated or have exogenous hyperthyroidism due to levothyroxine would not develop exopthalmos, therefore further work up was need hence given outpt referral for ophthalmology and endocrinology. Pt was discharged home on ASA and Statins. Duplex carotid- mild to moderate plaque on the left carotid, intimal thickening and minimal plaque on the right carotid MRI of the brain: no acute changes, chronic occipital cortical infract Head CT: neg CTA head is negative for acute changes, right chronic occipital cortical infract seen ECHO- EF 60%, mild to moderate aortic sclerosis, mild annular calcification, MV thickening EKG: NSR Date of Discharge: 10/05/19 Minutes to complete discharge: 40 Discharge Summary Problems reviewed: Yes Reason For Visit: SYNCOPE Condition: Improved - Instructions Diet, Activity, Other Instructions: You were admitted for left neck and arm pain. While you were in the hospital, we evaluated you with lab work, blood work, imaging including CAT scan and MRI of your brain. We found that your symptoms may have been as a result a transient stroke that resolved on its own. We treated you with medication to prevent any further symptoms. Your lab work also showed that your kidneys may have taken some injury, which improved with fluids. Your imaging also showed some abnormalities of your eyes, which will need to be followed up with an Manager Progressive Care. Please take the following medications as prescribed Please START taking Aspirin 81 mg daily Please START taking Atorvastatin 40 mg daily at night We reduced your Levothyroxine dosage Please START taking Levothyroxine 125 mcg daily Please take all your medications as prescribed Please follow up with your neurologist, Dr. Bravo in 1 week Please follow up with your Dialysis Rn Dr. Rose in 1 week Please also make an appointment with an laser engraver, Dr. Almaraz to have your eyes evaluated. Please follow up with the short filler bunch machine operator, Dr. Rose to have your thyroid medications adjusted. You will also need repeat blood work to check your thyroid levels. You may also follow up with William Valdes, the Senior Research Consultant, if you have persistent swallowing difficulty. Please follow up with your Primary care physician within 1 week. Return to the emergency room, if you experience worsening of you symptoms, headaches, chest pain, abdominal pain or any worsening of your condition. Referrals: Florencio Bull [Primary Care Provider] - 1 Week Rell Anthony MD [Staff Physician] - 1 Week Jj Almaraz MD [Staff Physician] - 1 Week (Exophthalmos seen on CAT scan) Susan Bravo MD [Staff Physician] - 1 Week Emerald Rose MD [Staff Physician] - 1 Week (Exophthalmos seen on CAT scan) William Delong MD [Staff Physician] - 1 Week (Difficulty with swallowing at times with food Throat clearing ) Disposition: HOME - Home Medications Comprehensive Discharge Medication List: Ambulatory Orders Enalapril/Hydrochlorothiazide [Vaseretic 10-25 mg Tablet] 1 each PO DAILY 10/03/19 Aspirin Coated [Ecotrin -] 81 mg PO DAILY #30 tablet.ec 10/05/19 Atorvastatin Ca [Lipitor] 40 mg PO HS #30 tablet 10/05/19 Levothyroxine [Synthroid -] 125 mcg PO DAILY@0700 #30 tablet 10/05/19 This patient is new to me today: Yes Date on this admission: 10/05/19 Emergency Visit: Yes ED Registration Date: 10/04/19 Care time: The patient presented to the Emergency Department on the above date and was hospitalized for further evaluation of their emergent condition. Critical Care patient: No - Discharge Referral Referred to [facility] Med P.C.: No ATTENDING PHYSICIAN STATEMENT I saw and evaluated the patient. I reviewed the resident's note and discussed the case with the resident. I agree with the resident's findings and plan as documented. SUBJECTIVE: OBJECTIVE: ASSESSMENT AND PLAN:
== END 2019-10-05 17:00 | disposition home or self-care (01) | DRG 683 ==
LOC: JER 19:24 → JERBED 23:33 → OBSVTOIN 10-04 02:07 → J4S 10-04 14:12
PROVIDERS: ADMIT Internal Medicine; ATTEND Internal Medicine
DX: N17.9 Acute kidney failure, unspecified (principal); G45.9 Transient cerebral ischemic attack, unspecified; I12.9 Hypertensive chronic kidney disease with stage 1 through stage 4 chronic kidney disease, or unspecified chronic kidney disease; N18.3 Chronic kidney disease, stage 3 (moderate); G93.89 Other specified disorders of brain; E03.9 Hypothyroidism, unspecified; E20.9 Hypoparathyroidism, unspecified; E78.5 Hyperlipidemia, unspecified; E05.00 Thyrotoxicosis with diffuse goiter without thyrotoxic crisis or storm; R47.1 Dysarthria and anarthria; D64.9 Anemia, unspecified; M79.642 Pain in left hand; F03.90 Unspecified dementia, unspecified severity, without behavioral disturbance, psychotic disturbance, mood disturbance, and anxiety; M54.2 Cervicalgia; Z86.73 Personal history of transient ischemic attack (TIA), and cerebral infarction without residual deficits
CPT/HCPCS: 36415; 70450-TC; 70496-TC; 70551-TC; 71045-TC-FY; 74230-TC-FY; 80053; 80061; 82550; 82553; 82728; 83036; 83540; 83550; 83721; 83735; 83970; 84100; 84439; 84443; 84484; 85025; 85027; 85044; 92611-GN; 93005; 93010; 93306-TC; 93880-TC; 93970-TC; 97116-GP; 97161-GP; 99285-25; G0378; J1644; J7030

== ENCOUNTER 2021-03-31 21:25 | Inpatient (IN) | payer OTHER ==
[2021-03-31 21:47] VITALS: BMI 28.0
[2021-03-31 22:59] LABS: MCH 35.7 pg (25.7-33.7); MCHC 34.6 g/dl (32.0-36.0); MEAN CELL VOLUME 102.9 fl (80-96); MEAN PLT VOLUME 9.1 fl (7.5-11.1); PLATELET COUNT 149 10^3/uL (134-434); RBC 2.52 M/mm3 (3.60-5.2); RDW 15.1 % (11.6-15.6); WHITE BLOOD COUNT 5.2 K/mm3 (4.0-10.0)
[2021-03-31 23:16] LABS: CHLORIDE 99 mmol/L (98-107); SODIUM 132 mmol/L (136-145)
[2021-03-31 23:19] LABS: BLOOD UREA NITROGEN 45.4 mg/dL (7-18); CALCIUM 9.5 mg/dL (8.5-10.1); CHOLESTEROL 467 mg/dL (50-200); CO2 23 mmol/L (21-32); GLUCOSE,RANDOM 118 mg/dL (74-106); INR 1.08 (0.83-1.09); MAGNESIUM 2.4 mg/dL (1.8-2.4); PROTHROMBIN TIME (PATIENT) 13.2 SEC (9.7-13.0); TRIGLYCERIDES 132 mg/dL (0-150)
[2021-03-31 23:21] LABS: CREATININE 2.9 mg/dL (0.55-1.3); HDL CHOLESTEROL 31 mg/dL (40-60); PHOSPHOROUS 3.1 mg/dL (2.5-4.9); SGOT/AST 31 U/L (15-37); SGPT/ALT 20 U/L (13-61)
[2021-03-31 23:22] LABS: ACTIVATED PTT 27.8 SECONDS (25.2-36.5)
[2021-03-31] MEDS ORDERED: SODIUM CHLORIDE 0.9% 500 ML INFUS.BAG IV ONE (23:22)
[2021-03-31 23:23] LABS: BILIRUBIN,TOTAL 1.7 mg/dL (0.2-1); TOT PROT 8.2 g/dl (6.4-8.2)
[2021-03-31 23:25] LABS: ALK PHOS 53 U/L (45-117)
[2021-03-31 23:36] LABS: ANION GAP 9 MMOL/L (8-16); LDL CHOLESTEROL (ONLY SJRH) 357 mg/dL (5-100)
[2021-03-31] MEDS ORDERED: AZITHROMYCIN IVPB 500 MG in DEXTROSE 5%-WATER - 250 ML IVPB ONE (23:47)
[2021-04-01] MEDS ORDERED: LEVOTHYROXINE NA 150 MCG TABLET PO ONE (00:23)
[2021-04-01] MEDS ORDERED: AZITHROMYCIN IVPB 500 MG/250 ML BAG IVPB ONE (00:25)
[2021-04-01] MEDS ORDERED: CEFTRIAXONE 1 GM/50 ML BAG ONE (00:25)
[2021-04-01 01:56] LABS: ANISOCYTOSIS 1+; MACROCYTOSIS 1+; PLATELET ESTIMATE DECREASED; ROULEAU 2+
[2021-04-01 02:41] LABS: BLOOD UREA NITROGEN 44.7 mg/dL (7-18)
[2021-04-01 02:44] LABS: CREATININE 2.9 mg/dL (0.55-1.3)
[2021-04-01] MEDS ORDERED: HEPARIN NA (PORCINE) 5,000 UNITS/ML 1ML VIAL ONE ×3 (07:18→20:55)
[2021-04-01] MEDS: HEPARIN NA (PORCINE) 5,000 UNITS/ML 1ML VIAL SQ SCH ×3 (07:26→21:06)
[2021-04-01] MEDS ORDERED: ASPIRIN COATED 81 MG TABLET.EC ONE (11:31)
[2021-04-01] MEDS: ASPIRIN COATED 81 MG TABLET.EC PO SCH (11:37)
[2021-04-01] MEDS ORDERED: LEVOTHYROXINE SODIUM 100 MCG VIAL IVPUSH ONE (15:31)
[2021-04-01] MEDS: SODIUM CHLORIDE 1,000 ML IV SCH (17:23)
[2021-04-01] MEDS ORDERED: LIDOCAINE HCL 2% JELLY 10 ML CARTRIDGE ONE (17:24)
[2021-04-01 18:08] LABS: URINE APPEARANCE CLEAR; URINE BILIRUBIN NEGATIVE (NEGATIVE); URINE COLOR YELLOW; URINE GLUCOSE (UA) NEGATIVE (NEGATIVE); URINE KETONE NEGATIVE (NEGATIVE); URINE LEUK ESTERASE NEGATIVE (NEGATIVE); URINE NITRITE NEGATIVE (NEGATIVE); URINE PROTEIN NEGATIVE (NEGATIVE)
[2021-04-01 20:04] LABS: CALCIUM 9.3 mg/dL (8.5-10.1)
[2021-04-01 20:05] LABS: ALBUMIN 3.8 g/dl (3.4-5.0); BLOOD UREA NITROGEN 41.4 mg/dL (7-18); MAGNESIUM 2.2 mg/dL (1.8-2.4)
[2021-04-01 20:08] LABS: CREATININE 2.4 mg/dL (0.55-1.3); PHOSPHOROUS 2.4 mg/dL (2.5-4.9)
[2021-04-01 20:09] LABS: BILIRUBIN,TOTAL 1.1 mg/dL (0.2-1); TOT PROT 7.4 g/dl (6.4-8.2)
[2021-04-01] MEDS ORDERED: ATORVASTATIN CA 80 MG TABLET (FP) ONE (20:54)
[2021-04-01] MEDS: ATORVASTATIN CA 80 MG TABLET (FP) PO SCH (21:09)
[2021-04-02] MEDS: HEPARIN NA (PORCINE) 5,000 UNITS/ML 1ML VIAL SQ SCH ×3 (06:58→21:22)
[2021-04-02] MEDS ORDERED: LEVOTHYROXINE NA 150 MCG TABLET PO SCH (07:00)
[2021-04-02] MEDS ORDERED: PT OWN MED DRAWER 7, Y5N ONE (09:02)
[2021-04-02] MEDS ORDERED: ASPIRIN 81 MG CHEWABLE TABLETS ONE (09:03)
[2021-04-02] MEDS: ASPIRIN COATED 81 MG TABLET.EC PO SCH (09:04)
[2021-04-02 09:53] LABS: BASO % 0.5 % (0-2.0); EOS % 0.6 % (0-4.5); HEMATOCRIT 25.4 % (32.4-45.2); HEMOGLOBIN 8.7 GM/dL (10.7-15.3); LYMPH % 28.9 % (8-40); MCH 36.1 pg (25.7-33.7); MCHC 34.5 g/dl (32.0-36.0); MEAN CELL VOLUME 104.6 fl (80-96); MEAN PLT VOLUME 9.6 fl (7.5-11.1); MONO % 11.2 % (3.8-10.2); NEUT % 58.8 % (42.8-82.8); PLATELET COUNT 147 10^3/uL (134-434); RBC 2.42 M/mm3 (3.60-5.2); RDW 15.1 % (11.6-15.6); RETICULOCYTES 1.49 % (0.5-1.5); WHITE BLOOD COUNT 4.1 K/mm3 (4.0-10.0)
[2021-04-02] MEDS ORDERED: PATIENT'S OWN MEDICATION (NON-FORMULARY) (Enalapril/Hydrochlorothiazide [Vaseretic 10-25 M PO SCH (10:00)
[2021-04-02] MEDS ORDERED: ENALAPRIL MALEATE 10 MG TABLET PO SCH (10:00)
[2021-04-02] MEDS ORDERED: HYDROCHLOROTHIAZIDE 25 MG TABLET (FP) PO SCH (10:00)
[2021-04-02] MEDS ORDERED: SODIUM PHOSPHATE - 30 MM in SODIUM CHLORIDE 500 ML IVPB ONE (10:00)
[2021-04-02 10:18] LABS: CALCIUM 8.7 mg/dL (8.5-10.1)
[2021-04-02 10:19] LABS: ALBUMIN 3.4 g/dl (3.4-5.0); BLOOD UREA NITROGEN 37.4 mg/dL (7-18); MAGNESIUM 2.1 mg/dL (1.8-2.4)
[2021-04-02 10:22] LABS: PHOSPHOROUS 2.4 mg/dL (2.5-4.9)
[2021-04-02 10:23] LABS: BILIRUBIN,TOTAL 1.1 mg/dL (0.2-1)
[2021-04-02 10:24] LABS: TOT PROT 6.7 g/dl (6.4-8.2)
[2021-04-02 10:54] LABS: BASO % 0.3 % (0-2.0); EOS % 0.6 % (0-4.5); HEMATOCRIT 25.3 % (32.4-45.2); HEMOGLOBIN 8.6 GM/dL (10.7-15.3); LYMPH % 28.4 % (8-40); MCH 35.3 pg (25.7-33.7); MCHC 34.1 g/dl (32.0-36.0); MEAN CELL VOLUME 103.6 fl (80-96); MONO % 8.6 % (3.8-10.2); NEUT % 62.1 % (42.8-82.8); PLATELET COUNT 135 10^3/uL (134-434); RBC 2.44 M/mm3 (3.60-5.2); RDW 14.7 % (11.6-15.6); WHITE BLOOD COUNT 3.8 K/mm3 (4.0-10.0)
[2021-04-02] MEDS: SODIUM CHLORIDE 1,000 ML IV SCH (14:56)
[2021-04-02] MEDS: ATORVASTATIN CA 80 MG TABLET (FP) PO SCH (21:22)
[2021-04-03] MEDS: HEPARIN NA (PORCINE) 5,000 UNITS/ML 1ML VIAL SQ SCH ×3 (05:48→21:05)
[2021-04-03 08:36] LABS: HEMATOCRIT 25.9 % (32.4-45.2); HEMOGLOBIN 8.9 GM/dL (10.7-15.3); MCH 35.3 pg (25.7-33.7); MCHC 34.1 g/dl (32.0-36.0); MEAN CELL VOLUME 103.4 fl (80-96); MEAN PLT VOLUME 9.4 fl (7.5-11.1); PLATELET COUNT 133 10^3/uL (134-434); RBC 2.51 M/mm3 (3.60-5.2); RDW 15.3 % (11.6-15.6); WHITE BLOOD COUNT 4.4 K/mm3 (4.0-10.0)
[2021-04-03 09:12] LABS: CALCIUM 8.6 mg/dL (8.5-10.1)
[2021-04-03 09:13] LABS: BLOOD UREA NITROGEN 30.6 mg/dL (7-18)
[2021-04-03 09:16] LABS: CREATININE 1.7 mg/dL (0.55-1.3); PHOSPHOROUS 4.1 mg/dL (2.5-4.9)
[2021-04-03 09:36] LABS: ANISOCYTOSIS 1+; MACROCYTOSIS 0; PLATELET ESTIMATE DECREASED
[2021-04-03] MEDS: ASPIRIN COATED 81 MG TABLET.EC PO SCH (10:22)
[2021-04-03] MEDS: LEVOTHYROXINE SODIUM 100 MCG VIAL IVPUSH SCH (10:23)
[2021-04-03] MEDS: ATORVASTATIN CA 80 MG TABLET (FP) PO SCH (21:05)
[2021-04-03] MEDS ORDERED: FAT EMULSION/OLIVE/SOY (CLINOLIPID) 250 ML EMULSION IV SCH (22:00)
[2021-04-03] MEDS: AMINO ACIDS 4.25%/D5W 1,000 ML IV SCH (22:01)
[2021-04-03] MEDS: MULTIVIT INJ. ADULT COMBO WITH VIT K 1 COMBO 10 ML VIAL IV SCH (22:05)
[2021-04-03] MEDS: FAT EMULSION/OLIVE/SOY/PHOSPHO 250 ML IV SCH (22:05)
[2021-04-04] MEDS: HEPARIN NA (PORCINE) 5,000 UNITS/ML 1ML VIAL SQ SCH ×3 (06:03→22:23)
[2021-04-04] MEDS: LIOTHYRONINE SODIUM 5 MCG TABLET PO SCH (06:03)
[2021-04-04] MEDS ORDERED: PT OWN MED DRAWER 7, Y5N ONE ×3 (10:31→20:46)
[2021-04-04] MEDS: ASPIRIN COATED 81 MG TABLET.EC PO SCH (10:54)
[2021-04-04] MEDS: LEVOTHYROXINE SODIUM 100 MCG VIAL IVPUSH SCH (11:36)
[2021-04-04 17:33] LABS: HEMATOCRIT 25.2 % (32.4-45.2); HEMOGLOBIN 8.7 GM/dL (10.7-15.3); MCH 35.9 pg (25.7-33.7); MCHC 34.6 g/dl (32.0-36.0); MEAN CELL VOLUME 103.6 fl (80-96); MEAN PLT VOLUME 9.5 fl (7.5-11.1); PLATELET COUNT 135 10^3/uL (134-434); RBC 2.43 M/mm3 (3.60-5.2); RDW 15.1 % (11.6-15.6); WHITE BLOOD COUNT 5.7 K/mm3 (4.0-10.0)
[2021-04-04 17:45] LABS: BLOOD UREA NITROGEN 29.7 mg/dL (7-18); CALCIUM 8.4 mg/dL (8.5-10.1); MAGNESIUM 1.9 mg/dL (1.8-2.4)
[2021-04-04 17:48] LABS: CREATININE 1.7 mg/dL (0.55-1.3)
[2021-04-04 17:49] LABS: PHOSPHOROUS 1.8 mg/dL (2.5-4.9)
[2021-04-04] MEDS: AMINO ACIDS 4.25%/D5W 1,000 ML IV SCH (18:40)
[2021-04-04] MEDS: MULTIVIT INJ. ADULT COMBO WITH VIT K 1 COMBO 10 ML VIAL IV SCH (21:00)
[2021-04-04] MEDS: FAT EMULSION/OLIVE/SOY/PHOSPHO 250 ML IV SCH (22:24)
[2021-04-04] MEDS: ATORVASTATIN CA 80 MG TABLET (FP) PO SCH (22:27)
[2021-04-05] MEDS ORDERED: PT OWN MED DRAWER 7, Y5N ONE ×2 (05:24→09:33)
[2021-04-05] MEDS: HEPARIN NA (PORCINE) 5,000 UNITS/ML 1ML VIAL SQ SCH ×3 (06:48→21:42)
[2021-04-05] MEDS: LIOTHYRONINE SODIUM 5 MCG TABLET PO SCH (06:48)
[2021-04-05 07:26] LABS: HEMATOCRIT 24.5 % (32.4-45.2); HEMOGLOBIN 8.6 GM/dL (10.7-15.3); MCH 36.3 pg (25.7-33.7); MCHC 35.1 g/dl (32.0-36.0); MEAN CELL VOLUME 103.7 fl (80-96); MEAN PLT VOLUME 9.9 fl (7.5-11.1); PLATELET COUNT 137 10^3/uL (134-434); RBC 2.36 M/mm3 (3.60-5.2); RDW 15.2 % (11.6-15.6); WHITE BLOOD COUNT 5.9 K/mm3 (4.0-10.0)
[2021-04-05 07:56] LABS: ALBUMIN 3.1 g/dl (3.4-5.0); BLOOD UREA NITROGEN 34.1 mg/dL (7-18); CALCIUM 8.2 mg/dL (8.5-10.1)
[2021-04-05 07:59] LABS: CREATININE 1.6 mg/dL (0.55-1.3)
[2021-04-05 08:00] LABS: PHOSPHOROUS 1.6 mg/dL (2.5-4.9)
[2021-04-05 08:01] LABS: BILIRUBIN,TOTAL 0.9 mg/dL (0.2-1); TOT PROT 6.3 g/dl (6.4-8.2)
[2021-04-05] MEDS: NAPH,MB-DB/K PH,MBDB POWDER PACKET PO SCH ×3 (10:30→21:42)
[2021-04-05] MEDS: ASPIRIN COATED 81 MG TABLET.EC PO SCH (10:31)
[2021-04-05] MEDS: LEVOTHYROXINE SODIUM 100 MCG VIAL IVPUSH SCH (10:31)
[2021-04-05] MEDS: MULTIVIT INJ. ADULT COMBO WITH VIT K 1 COMBO 10 ML VIAL IV SCH ×2 (14:31→19:00)
[2021-04-05] MEDS: AMINO ACIDS 4.25%/D5W 1,000 ML IV SCH ×2 (14:50→19:00)
[2021-04-05] MEDS: FAT EMULSION/OLIVE/SOY/PHOSPHO 250 ML IV SCH (21:42)
[2021-04-05] MEDS: ATORVASTATIN CA 80 MG TABLET (FP) PO SCH (21:42)
[2021-04-06] MEDS ORDERED: PT OWN MED DRAWER 7, Y5N ONE ×3 (05:57→15:28)
[2021-04-06] MEDS: HEPARIN NA (PORCINE) 5,000 UNITS/ML 1ML VIAL SQ SCH ×3 (06:00→21:43)
[2021-04-06] MEDS: LIOTHYRONINE SODIUM 5 MCG TABLET PO SCH (06:01)
[2021-04-06 08:54] LABS: HEMATOCRIT 24.1 % (32.4-45.2); HEMOGLOBIN 8.4 GM/dL (10.7-15.3); MCH 35.9 pg (25.7-33.7); MCHC 34.7 g/dl (32.0-36.0); MEAN CELL VOLUME 103.5 fl (80-96); MEAN PLT VOLUME 10.1 fl (7.5-11.1); PLATELET COUNT 135 10^3/uL (134-434); RBC 2.33 M/mm3 (3.60-5.2); RDW 15.5 % (11.6-15.6); WHITE BLOOD COUNT 6.4 K/mm3 (4.0-10.0)
[2021-04-06 09:43] LABS: BILIRUBIN,TOTAL 0.8 mg/dL (0.2-1); BLOOD UREA NITROGEN 33.9 mg/dL (7-18); CALCIUM 8.1 mg/dL (8.5-10.1); CREATININE 1.5 mg/dL (0.55-1.3); PHOSPHOROUS 1.9 mg/dL (2.5-4.9); TOT PROT 6.3 g/dl (6.4-8.2)
[2021-04-06] MEDS: ASPIRIN COATED 81 MG TABLET.EC PO SCH (10:56)
[2021-04-06] MEDS: LEVOTHYROXINE SODIUM 100 MCG VIAL IVPUSH SCH (10:56)
[2021-04-06] MEDS: AMINO ACIDS 4.25%/D5W 1,000 ML IV SCH ×2 (15:51→20:19)
[2021-04-06] MEDS: MULTIVIT INJ. ADULT COMBO WITH VIT K 1 COMBO 10 ML VIAL IV SCH ×2 (15:54→20:19)
[2021-04-06] MEDS ORDERED: ATORVASTATIN CA 40 MG TABLET (FP) ONE (21:11)
[2021-04-06] MEDS: FAT EMULSION/OLIVE/SOY/PHOSPHO 250 ML IV SCH (21:36)
[2021-04-06] MEDS: ATORVASTATIN CA 80 MG TABLET (FP) PO SCH (21:43)
[2021-04-07] MEDS: HEPARIN NA (PORCINE) 5,000 UNITS/ML 1ML VIAL SQ SCH ×3 (05:59→21:58)
[2021-04-07] MEDS: LIOTHYRONINE SODIUM 5 MCG TABLET PO SCH (05:59)
[2021-04-07 08:15] LABS: HEMATOCRIT 22.9 % (32.4-45.2); HEMOGLOBIN 8.2 GM/dL (10.7-15.3); MCH 36.7 pg (25.7-33.7); MCHC 35.7 g/dl (32.0-36.0); MEAN CELL VOLUME 102.9 fl (80-96); MEAN PLT VOLUME 10.5 fl (7.5-11.1); PLATELET COUNT 147 10^3/uL (134-434); RBC 2.22 M/mm3 (3.60-5.2); RDW 14.9 % (11.6-15.6); WHITE BLOOD COUNT 6.8 K/mm3 (4.0-10.0)
[2021-04-07] MEDS ORDERED: PT OWN MED DRAWER 7, Y5N ONE ×2 (08:44→17:20)
[2021-04-07 08:53] LABS: ALBUMIN 3.2 g/dl (3.4-5.0); BILIRUBIN,TOTAL 0.8 mg/dL (0.2-1); BLOOD UREA NITROGEN 34.4 mg/dL (7-18); CALCIUM 8.4 mg/dL (8.5-10.1); CREATININE 1.5 mg/dL (0.55-1.3); TOT PROT 6.6 g/dl (6.4-8.2)
[2021-04-07] MEDS: ASPIRIN COATED 81 MG TABLET.EC PO SCH (09:49)
[2021-04-07] MEDS: LEVOTHYROXINE SODIUM 100 MCG VIAL IVPUSH SCH (09:49)
[2021-04-07] MEDS ORDERED: POTASSIUM PHOSPHATE 30 MM in SODIUM CHLORIDE 500 ML IVPB ONE (10:30)
[2021-04-07] MEDS ORDERED: DRONABINOL 2.5 MG CAPSULE PO SCH (11:00)
[2021-04-07] MEDS ORDERED: BISMUTH SUBSALICYLATE 262 MG/15 ML BTL PO PRN (11:12)
[2021-04-07] MEDS: FOLIC ACID 1 MG TABLET (FP) PO SCH (13:08)
[2021-04-07] MEDS: MULTIVIT INJ. ADULT COMBO WITH VIT K 1 COMBO 10 ML VIAL IV SCH (18:35)
[2021-04-07] MEDS: AMINO ACIDS 4.25%/D5W 1,000 ML IV SCH (18:36)
[2021-04-07] MEDS: DRONABINOL 2.5 MG CAPSULE PO SCH (21:58)
[2021-04-07] MEDS: ATORVASTATIN CA 80 MG TABLET (FP) PO SCH (21:58)
[2021-04-07] MEDS: FAT EMULSION/OLIVE/SOY/PHOSPHO 250 ML IV SCH (21:59)
[2021-04-08] MEDS: LIOTHYRONINE SODIUM 5 MCG TABLET PO SCH (06:14)
[2021-04-08 08:51] LABS: HEMATOCRIT 22.2 % (32.4-45.2); HEMOGLOBIN 7.9 GM/dL (10.7-15.3); MCH 36.6 pg (25.7-33.7); MCHC 35.5 g/dl (32.0-36.0); MEAN PLT VOLUME 10.4 fl (7.5-11.1); PLATELET COUNT 149 10^3/uL (134-434); RBC 2.15 M/mm3 (3.60-5.2); RDW 15.7 % (11.6-15.6); WHITE BLOOD COUNT 7.8 K/mm3 (4.0-10.0)
[2021-04-08 09:11] LABS: ALBUMIN 3.1 g/dl (3.4-5.0); BLOOD UREA NITROGEN 40.8 mg/dL (7-18); MAGNESIUM 1.6 mg/dL (1.8-2.4)
[2021-04-08 09:13] LABS: CALCIUM 7.7 mg/dL (8.5-10.1)
[2021-04-08 09:14] LABS: CREATININE 1.6 mg/dL (0.55-1.3)
[2021-04-08 09:15] LABS: BILIRUBIN,TOTAL 0.7 mg/dL (0.2-1); PHOSPHOROUS 3.1 mg/dL (2.5-4.9)
[2021-04-08 09:16] LABS: TOT PROT 6.5 g/dl (6.4-8.2)
[2021-04-08] MEDS: DRONABINOL 2.5 MG CAPSULE PO SCH ×2 (09:56→21:41)
[2021-04-08] MEDS: FOLIC ACID 1 MG TABLET (FP) PO SCH (09:56)
[2021-04-08] MEDS: ASPIRIN COATED 81 MG TABLET.EC PO SCH (09:56)
[2021-04-08] MEDS: LEVOTHYROXINE SODIUM 100 MCG VIAL IVPUSH SCH (09:57)
[2021-04-08] MEDS: AMINO ACIDS 4.25%/D5W 1,000 ML IV SCH (10:30)
[2021-04-08] MEDS ORDERED: MAGNESIUM 1GM/D5W - 1 GM/100 ML IVPB IVPB ONE (10:30)
[2021-04-08] MEDS ORDERED: POTASSIUM CHLORIDE ORAL LIQUID 20 MEQ/15 ML PO ONE (11:21)
[2021-04-08] MEDS: ENALAPRIL MALEATE 5 MG TABLET PO SCH (12:13)
[2021-04-08] MEDS ORDERED: ACETAMINOPHEN 1000 MG/100 ML VIAL (NON FORMULARY) IVPB PRN (12:43)
[2021-04-08] MEDS: MULTIVIT INJ. ADULT COMBO WITH VIT K 1 COMBO 10 ML VIAL IV SCH (18:31)
[2021-04-08] MEDS ORDERED: PT OWN MED DRAWER 7, Y5N ONE (18:33)
[2021-04-08] MEDS: ATORVASTATIN CA 80 MG TABLET (FP) PO SCH (21:40)
[2021-04-08] MEDS: FAT EMULSION/OLIVE/SOY/PHOSPHO 250 ML IV SCH (21:52)
[2021-04-09] MEDS ORDERED: PT OWN MED DRAWER 7, Y5N ONE (05:17)
[2021-04-09] MEDS: LIOTHYRONINE SODIUM 5 MCG TABLET PO SCH (06:06)
[2021-04-09 09:07] LABS: HEMATOCRIT 22.2 % (32.4-45.2); HEMOGLOBIN 7.7 GM/dL (10.7-15.3); MCH 35.9 pg (25.7-33.7); MCHC 34.8 g/dl (32.0-36.0); MEAN CELL VOLUME 103.2 fl (80-96); MEAN PLT VOLUME 10.4 fl (7.5-11.1); PLATELET COUNT 156 10^3/uL (134-434); RBC 2.15 M/mm3 (3.60-5.2); RDW 15.7 % (11.6-15.6); WHITE BLOOD COUNT 7.6 K/mm3 (4.0-10.0)
[2021-04-09 09:28] LABS: ALBUMIN 3.1 g/dl (3.4-5.0); BLOOD UREA NITROGEN 50.9 mg/dL (7-18)
[2021-04-09 09:31] LABS: CREATININE 1.7 mg/dL (0.55-1.3)
[2021-04-09 09:32] LABS: PHOSPHOROUS 2.6 mg/dL (2.5-4.9)
[2021-04-09 09:33] LABS: BILIRUBIN,TOTAL 0.6 mg/dL (0.2-1); TOT PROT 6.5 g/dl (6.4-8.2)
[2021-04-09] MEDS: ASPIRIN COATED 81 MG TABLET.EC PO SCH (09:52)
[2021-04-09] MEDS: LEVOTHYROXINE SODIUM 100 MCG VIAL IVPUSH SCH (09:52)
[2021-04-09] MEDS: DRONABINOL 2.5 MG CAPSULE PO SCH ×2 (09:52→21:31)
[2021-04-09] MEDS: ENALAPRIL MALEATE 5 MG TABLET PO SCH (09:52)
[2021-04-09] MEDS: FOLIC ACID 1 MG TABLET (FP) PO SCH (09:52)
[2021-04-09] MEDS: AMINO ACIDS 4.25%/D5W 1,000 ML IV SCH (13:43)
[2021-04-09] MEDS: ATORVASTATIN CA 80 MG TABLET (FP) PO SCH (21:31)
[2021-04-10] MEDS ORDERED: PT OWN MED DRAWER 7, Y5N ONE (05:32)
[2021-04-10] MEDS ORDERED: LEVOTHYROXINE NA 100 MCG TABLET (FP) PO SCH (07:00)
[2021-04-10] MEDS ORDERED: LIOTHYRONINE SODIUM 5 MCG TABLET PO SCH (07:00)
[2021-04-10 07:35] LABS: ALBUMIN 2.8 g/dl (3.4-5.0); CALCIUM 7.9 mg/dL (8.5-10.1)
[2021-04-10 07:36] LABS: BLOOD UREA NITROGEN 51.5 mg/dL (7-18)
[2021-04-10 07:39] LABS: CREATININE 1.7 mg/dL (0.55-1.3)
[2021-04-10 07:40] LABS: BILIRUBIN,TOTAL 0.5 mg/dL (0.2-1); TOT PROT 5.9 g/dl (6.4-8.2)
[2021-04-10 07:41] LABS: HEMATOCRIT 21.7 % (32.4-45.2); HEMOGLOBIN 7.5 GM/dL (10.7-15.3); MCH 35.6 pg (25.7-33.7); MCHC 34.6 g/dl (32.0-36.0); MEAN CELL VOLUME 102.9 fl (80-96); MEAN PLT VOLUME 10.4 fl (7.5-11.1); PLATELET COUNT 150 10^3/uL (134-434); RBC 2.11 M/mm3 (3.60-5.2); WHITE BLOOD COUNT 5.5 K/mm3 (4.0-10.0)
[2021-04-10] MEDS ORDERED: AMINO ACIDS/PROTEIN HYDROLYS 30 ML LIQUID.PKT PO SCH (08:00)
[2021-04-10] MEDS: FOLIC ACID 1 MG TABLET (FP) PO SCH (09:55)
[2021-04-10] MEDS: ASPIRIN COATED 81 MG TABLET.EC PO SCH (09:55)
[2021-04-10] MEDS: ENALAPRIL MALEATE 5 MG TABLET PO SCH (09:57)
[2021-04-10] MEDS: DRONABINOL 2.5 MG CAPSULE PO SCH ×2 (09:58→17:19)
[2021-04-10] MEDS ORDERED: MULTIVITAMINS THER W-MINERALS COMBO TABLET (FP) PO SCH (10:00)
[2021-04-10 10:24] LABS: ANISOCYTOSIS 0; MACROCYTOSIS 0; PLATELET ESTIMATE DECREASED
[2021-04-10] MEDS ORDERED: BISMUTH SUBSALICYLATE 262 MG/15 ML BTL PO PRN (16:18)
[2021-04-10] MEDS: AMINO ACIDS/PROTEIN HYDROLYS 30 ML LIQUID.PKT PO SCH (17:19)
[2021-04-10] MEDS: ATORVASTATIN CA 80 MG TABLET (FP) PO SCH (21:09)
[2021-04-11 03:53] LABS: HEMATOCRIT 25.2 % (32.4-45.2); HEMOGLOBIN 8.6 GM/dL (10.7-15.3); MCH 33.1 pg (25.7-33.7); MCHC 34.1 g/dl (32.0-36.0); MEAN PLT VOLUME 9.7 fl (7.5-11.1); PLATELET COUNT 160 10^3/uL (134-434); RDW 19.5 % (11.6-15.6)
[2021-04-11] MEDS ORDERED: PT OWN MED DRAWER 7, Y5N ONE ×2 (05:56→06:07)
[2021-04-11 06:19] LABS: ANISOCYTOSIS 1+; MACROCYTOSIS 0; PLATELET ESTIMATE NORMAL; ROULEAU 1+
[2021-04-11] MEDS ORDERED: LEVOTHYROXINE NA 100 MCG TABLET (FP) PO SCH (07:00)
[2021-04-11] MEDS ORDERED: LIOTHYRONINE SODIUM 5 MCG TABLET PO SCH (07:00)
[2021-04-11] MEDS: AMINO ACIDS/PROTEIN HYDROLYS 30 ML LIQUID.PKT PO SCH ×2 (08:56→17:18)
[2021-04-11] MEDS: DRONABINOL 2.5 MG CAPSULE PO SCH ×2 (08:56→17:17)
[2021-04-11 08:59] LABS: HEMATOCRIT 24.8 % (32.4-45.2); HEMOGLOBIN 8.6 GM/dL (10.7-15.3); MCH 33.7 pg (25.7-33.7); MCHC 34.8 g/dl (32.0-36.0); MEAN CELL VOLUME 96.8 fl (80-96); MEAN PLT VOLUME 10.3 fl (7.5-11.1); PLATELET COUNT 173 10^3/uL (134-434); RBC 2.56 M/mm3 (3.60-5.2); RDW 20.5 % (11.6-15.6); WHITE BLOOD COUNT 4.7 K/mm3 (4.0-10.0)
[2021-04-11 09:19] LABS: ALBUMIN 2.9 g/dl (3.4-5.0); CALCIUM 8.5 mg/dL (8.5-10.1)
[2021-04-11 09:20] LABS: BLOOD UREA NITROGEN 54.3 mg/dL (7-18); MAGNESIUM 2.1 mg/dL (1.8-2.4)
[2021-04-11 09:23] LABS: CREATININE 1.6 mg/dL (0.55-1.3); PHOSPHOROUS 3.2 mg/dL (2.5-4.9)
[2021-04-11 09:24] LABS: BILIRUBIN,TOTAL 1.3 mg/dL (0.2-1); TOT PROT 6.1 g/dl (6.4-8.2)
[2021-04-11] MEDS ORDERED: ASPIRIN COATED 81 MG TABLET.EC PO SCH (10:00)
[2021-04-11] MEDS ORDERED: MULTIVITAMINS THER W-MINERALS COMBO TABLET (FP) PO SCH (10:00)
[2021-04-11] MEDS ORDERED: FOLIC ACID 1 MG TABLET (FP) PO SCH (10:00)
[2021-04-11] MEDS: SODIUM BICARBONATE 650 MG TABLET PO SCH ×2 (17:17→21:01)
[2021-04-11 20:54] VITALS: BP 134/70; PULSE 66; TEMP 97.9
[2021-04-11] MEDS: ATORVASTATIN CA 80 MG TABLET (FP) PO SCH (21:01)
== END 2021-04-11 23:10 | DRG 644 ==
LOC: JER 21:25 → JERBED 04-01 04:05 → INTOOBSV 04-01 04:05 → OBSVTOIN 04-01 05:24 → J4W 04-02 15:08 → J6S 04-10 15:54
PROVIDERS: ADMIT Internal Medicine; ATTEND Internal Medicine
DX: E03.8 Other specified hypothyroidism (principal); I13.0 Hypertensive heart and chronic kidney disease with heart failure and stage 1 through stage 4 chronic kidney disease, or unspecified chronic kidney disease; J98.11 Atelectasis; E87.1 Hypo-osmolality and hyponatremia; N17.9 Acute kidney failure, unspecified; I50.22 Chronic systolic (congestive) heart failure; I42.9 Cardiomyopathy, unspecified; I25.10 Atherosclerotic heart disease of native coronary artery without angina pectoris; I10 Essential (primary) hypertension; I69.354 Hemiplegia and hemiparesis following cerebral infarction affecting left non-dominant side; D53.9 Nutritional anemia, unspecified; E83.39 Other disorders of phosphorus metabolism; E83.42 Hypomagnesemia; E11.22 Type 2 diabetes mellitus with diabetic chronic kidney disease; N18.9 Chronic kidney disease, unspecified; E78.5 Hyperlipidemia, unspecified; D69.6 Thrombocytopenia, unspecified; F03.90 Unspecified dementia, unspecified severity, without behavioral disturbance, psychotic disturbance, mood disturbance, and anxiety; E87.5 Hyperkalemia; E86.0 Dehydration; R19.7 Diarrhea, unspecified; K76.89 Other specified diseases of liver; N28.1 Cyst of kidney, acquired
CPT/HCPCS: 36415; 36430; 70450-TC; 70551-TC; 71045-TC-FY; 71250-TC; 74018-TC-FY; 74019-TC-FY; 74150-TC; 74230-TC-FY; 80048; 80053; 80061; 81003; 82272; 82570; 82607; 82746; 82962; 83540; 83550; 83735; 83930; 83935; 83970; 84100; 84439; 84443; 84480; 84481; 84484; 84540; 85025; 85027; 85045; 85610; 85730; 86850; 86900; 86901; 86922; 87086; 92611-GN; 93005; 93010; 93306-TC; 93880-TC; 97116-GP; 97161-GP; 99285-25; C9803; G0378; J0131; J1644; P9058; U0003; U0005

== ENCOUNTER 2022-03-23 19:01 | Observation (INO) | payer OTHER ==
[2022-03-23] MEDS ORDERED: ACETAMINOPHEN 1000 MG/100 ML BAG IVPB ONE (19:55)
[2022-03-23] MEDS ORDERED: SODIUM CHLORIDE 0.9% 500 ML INFUS.BAG IV ONE (19:55)
[2022-03-23] MEDS ORDERED: ACETAMINOPHEN INJECTION 100 ML IVPB ONE (20:32)
[2022-03-23 20:45] LABS: BASO % 0.3 % (0-2.0); EOS % 0.4 % (0-4.5); HEMATOCRIT 34.8 % (32.4-45.2); HEMOGLOBIN 11.8 GM/dL (10.7-15.3); LYMPH % 12.1 % (8-40); MEAN CELL VOLUME 91.1 fl (80-96); MEAN PLT VOLUME 11.4 fl (7.5-11.1); MONO % 11.3 % (3.8-10.2); NEUT % 75.9 % (42.8-82.8); PLATELET COUNT 113 10^3/uL (134-434); RBC 3.81 M/mm3 (3.60-5.2); RDW 17.1 % (11.6-15.6); WHITE BLOOD COUNT 6.5 K/mm3 (4.0-10.0)
[2022-03-23 20:52] LABS: INR 1.09 (0.83-1.09); PROTHROMBIN TIME (PATIENT) 12.6 SEC (9.7-13.0)
[2022-03-23 20:55] LABS: ACTIVATED PTT 31.2 SECONDS (25.2-36.5)
[2022-03-23 21:08] LABS: ALBUMIN 4.4 g/dl (3.4-5.0); BLOOD UREA NITROGEN 73.8 mg/dL (7-18); MAGNESIUM 1.9 mg/dL (1.8-2.4)
[2022-03-23 21:11] LABS: CREATININE 2.8 mg/dL (0.55-1.3)
[2022-03-23 21:12] LABS: BILIRUBIN,TOTAL 0.9 mg/dL (0.2-1); TOT PROT 7.9 g/dl (6.4-8.2)
[2022-03-23 21:28] LABS: LACTIC ACID 2.1 mmol/L (0.4-2.0)
[2022-03-24] MEDS ORDERED: HEPARIN NA (PORCINE) 5,000 UNITS/ML 1ML VIAL ONE ×3 (06:24→21:29)
[2022-03-24] MEDS: HEPARIN NA (PORCINE) 5,000 UNITS/ML 1ML VIAL SQ SCH ×3 (06:28→22:13)
[2022-03-24] MEDS ORDERED: LEVOTHYROXINE NA 200 MCG TABLET PO SCH (07:00)
[2022-03-24] MEDS ORDERED: LEVOTHYROXINE NA 50 MCG TABLET (FP) ONE (08:43)
[2022-03-24 09:30] LABS: HEMATOCRIT 32.5 % (32.4-45.2); HEMOGLOBIN 11.1 GM/dL (10.7-15.3); MCH 31.1 pg (25.7-33.7); MCHC 34.1 g/dl (32.0-36.0); MEAN CELL VOLUME 91.1 fl (80-96); MEAN PLT VOLUME 10.9 fl (7.5-11.1); PLATELET COUNT 84 10^3/uL (134-434); RBC 3.57 M/mm3 (3.60-5.2); RDW 16.8 % (11.6-15.6); WHITE BLOOD COUNT 5.9 K/mm3 (4.0-10.0)
[2022-03-24 09:52] LABS: CALCIUM 9.3 mg/dL (8.5-10.1)
[2022-03-24 09:55] LABS: ALBUMIN 3.9 g/dl (3.4-5.0); MAGNESIUM 1.8 mg/dL (1.8-2.4)
[2022-03-24 09:56] LABS: BLOOD UREA NITROGEN 68.1 mg/dL (7-18)
[2022-03-24 09:58] LABS: CREATININE 2.4 mg/dL (0.55-1.3); PHOSPHOROUS 3.3 mg/dL (2.5-4.9)
[2022-03-24 10:01] LABS: BILIRUBIN,TOTAL 0.8 mg/dL (0.2-1)
[2022-03-24] MEDS ORDERED: METOPROLOL TARTRATE 5 MG/5 ML VIAL ONE (13:28)
[2022-03-24] MEDS ORDERED: POTASSIUM CHLORIDE TABS 20 MEQ TABLET.ER (FP) PO ONE ×2 (17:07→18:02)
[2022-03-24] MEDS: LACTATED RINGERS SOLUTION 1,000 ML/1,000 ML INFUS.BAG IV SCH (17:30)
[2022-03-24 18:05] LABS: EPI CELLS 19 /uL (0-25.1); HYALINE CASTS 0 /uL (0-3.1); PH,URINE 5.5 (5.0-8.0); URINE APPEARANCE CLOUDY; URINE BACTERIA 278 /uL (0-1359); URINE BILIRUBIN NEGATIVE (NEGATIVE); URINE COLOR YELLOW; URINE GLUCOSE (UA) NEGATIVE (NEGATIVE); URINE KETONE NEGATIVE (NEGATIVE); URINE LEUK ESTERASE 1+ (NEGATIVE); URINE NITRITE NEGATIVE (NEGATIVE); URINE PROTEIN TRACE (NEGATIVE); URINE RBC 13 /uL (0-23.9); URINE UROBILINOGEN 0.2 mg/dL (0.2-1.0); URINE WBC 42 /uL (0-25.8)
[2022-03-24] MEDS: NYSTATIN 500,000 UNITS/5 ML SUSPENSION PO SCH (18:34)
[2022-03-24] MEDS ORDERED: ATORVASTATIN CA 80 MG TABLET (FP) ONE (21:29)
[2022-03-24] MEDS: ATORVASTATIN CA 80 MG TABLET (FP) PO SCH (22:13)
[2022-03-24 23:59] VITALS: BMI 23.1
[2022-03-25] MEDS: NYSTATIN 500,000 UNITS/5 ML SUSPENSION PO SCH ×4 (01:17→17:14)
[2022-03-25] MEDS: LEVOTHYROXINE NA 100 MCG TABLET (FP) PO SCH (06:07)
[2022-03-25] MEDS: HEPARIN NA (PORCINE) 5,000 UNITS/ML 1ML VIAL SQ SCH ×3 (06:12→21:05)
[2022-03-25 16:36] LABS: BASO % 0.3 % (0-2.0); EOS % 3.8 % (0-4.5); HEMATOCRIT 33.7 % (32.4-45.2); HEMOGLOBIN 11.3 GM/dL (10.7-15.3); LYMPH % 23.6 % (8-40); MCHC 33.6 g/dl (32.0-36.0); MEAN CELL VOLUME 92.2 fl (80-96); MONO % 12.6 % (3.8-10.2); NEUT % 59.7 % (42.8-82.8); PLATELET COUNT 92 10^3/uL (134-434); RBC 3.66 M/mm3 (3.60-5.2); RDW 17.1 % (11.6-15.6); WHITE BLOOD COUNT 5.4 K/mm3 (4.0-10.0)
[2022-03-25 16:56] LABS: CALCIUM 9.4 mg/dL (8.5-10.1)
[2022-03-25 16:57] LABS: ALBUMIN 3.8 g/dl (3.4-5.0); MAGNESIUM 1.7 mg/dL (1.8-2.4)
[2022-03-25 17:00] LABS: CREATININE 1.8 mg/dL (0.55-1.3)
[2022-03-25 17:01] LABS: BILIRUBIN,TOTAL 0.9 mg/dL (0.2-1); TOT PROT 7.2 g/dl (6.4-8.2)
[2022-03-25] MEDS ORDERED: MAGNESIUM OXIDE 400 MG TABLET (FP) PO ONE (18:53)
[2022-03-25] MEDS: ATORVASTATIN CA 80 MG TABLET (FP) PO SCH (21:05)
[2022-03-25] MEDS: MECLIZINE HCL 12.5 MG TABLET PO SCH (21:07)
[2022-03-26] MEDS: MECLIZINE HCL 12.5 MG TABLET PO SCH ×3 (06:01→21:40)
[2022-03-26] MEDS: HEPARIN NA (PORCINE) 5,000 UNITS/ML 1ML VIAL SQ SCH ×3 (06:02→21:40)
[2022-03-26] MEDS: LEVOTHYROXINE NA 100 MCG TABLET (FP) PO SCH (06:02)
[2022-03-26] MEDS: NYSTATIN 500,000 UNITS/5 ML SUSPENSION PO SCH ×3 (06:02→12:19)
[2022-03-26 08:27] LABS: BASO % 0.4 % (0-2.0); EOS % 3.3 % (0-4.5); HEMATOCRIT 33.3 % (32.4-45.2); HEMOGLOBIN 11.3 GM/dL (10.7-15.3); LYMPH % 28.9 % (8-40); MCH 30.9 pg (25.7-33.7); MCHC 33.8 g/dl (32.0-36.0); MEAN CELL VOLUME 91.3 fl (80-96); MEAN PLT VOLUME 11.6 fl (7.5-11.1); MONO % 15.4 % (3.8-10.2); PLATELET COUNT 99 10^3/uL (134-434); RBC 3.65 M/mm3 (3.60-5.2); RDW 16.8 % (11.6-15.6); WHITE BLOOD COUNT 5.5 K/mm3 (4.0-10.0)
[2022-03-26 09:18] LABS: ALBUMIN 3.5 g/dl (3.4-5.0); BILIRUBIN,TOTAL 0.9 mg/dL (0.2-1); CALCIUM 9.4 mg/dL (8.5-10.1); CREATININE 1.6 mg/dL (0.55-1.3); TOT PROT 6.7 g/dl (6.4-8.2)
[2022-03-26] MEDS ORDERED: amLODIPine BESYLATE 2.5 MG TABLET (FP) PO SCH (10:00)
[2022-03-26] MEDS: metoPROLOL SUCCINATE 25 MG TAB.SR.24H (FP) PO SCH (10:26)
[2022-03-26] MEDS: POLYETHYLENE GLYCOL (HEALTHYLAX) 3350 17 GM PACKET PO SCH (10:26)
[2022-03-26] MEDS: LACTATED RINGERS SOLUTION 1,000 ML/1,000 ML INFUS.BAG IV SCH ×2 (16:30→20:30)
[2022-03-26] MEDS: ATORVASTATIN CA 80 MG TABLET (FP) PO SCH (21:40)
[2022-03-27] MEDS: LEVOTHYROXINE NA 100 MCG TABLET (FP) PO SCH (06:05)
[2022-03-27] MEDS: HEPARIN NA (PORCINE) 5,000 UNITS/ML 1ML VIAL SQ SCH ×3 (06:05→21:41)
[2022-03-27] MEDS: MECLIZINE HCL 12.5 MG TABLET PO SCH ×3 (06:05→21:40)
[2022-03-27 09:24] LABS: BASO % 0.5 % (0-2.0); EOS % 3.5 % (0-4.5); HEMATOCRIT 34.9 % (32.4-45.2); HEMOGLOBIN 11.6 GM/dL (10.7-15.3); LYMPH % 36.9 % (8-40); MCH 30.9 pg (25.7-33.7); MCHC 33.3 g/dl (32.0-36.0); MEAN CELL VOLUME 92.6 fl (80-96); MEAN PLT VOLUME 11.5 fl (7.5-11.1); NEUT % 47.1 % (42.8-82.8); PLATELET COUNT 106 10^3/uL (134-434); RBC 3.76 M/mm3 (3.60-5.2); RDW 16.9 % (11.6-15.6); WHITE BLOOD COUNT 5.3 K/mm3 (4.0-10.0)
[2022-03-27 09:49] LABS: ALBUMIN 3.5 g/dl (3.4-5.0)
[2022-03-27] MEDS: metoPROLOL SUCCINATE 25 MG TAB.SR.24H (FP) PO SCH (09:51)
[2022-03-27 09:52] LABS: BLOOD UREA NITROGEN 41.6 mg/dL (7-18); CREATININE 1.7 mg/dL (0.55-1.3); MAGNESIUM 1.7 mg/dL (1.8-2.4)
[2022-03-27] MEDS: POLYETHYLENE GLYCOL (HEALTHYLAX) 3350 17 GM PACKET PO SCH (09:52)
[2022-03-27 09:55] LABS: BILIRUBIN,TOTAL 0.9 mg/dL (0.2-1); TOT PROT 6.7 g/dl (6.4-8.2)
[2022-03-27] MEDS ORDERED: MAGNESIUM SULF 50% (8.12 MEQ/2 ML-1 GM VIAL) IVPB ONE (11:45)
[2022-03-27] MEDS ORDERED: HALOPERIDOL 1 MG TABLET PO PRN ×2 (16:00→16:01)
[2022-03-27] MEDS: LACTATED RINGERS SOLUTION 1,000 ML/1,000 ML INFUS.BAG IV SCH (16:30)
[2022-03-27] MEDS: HALOPERIDOL 0.5 MG TABLET PO PRN (16:53)
[2022-03-27] MEDS: ATORVASTATIN CA 80 MG TABLET (FP) PO SCH (21:40)
[2022-03-28] MEDS: HEPARIN NA (PORCINE) 5,000 UNITS/ML 1ML VIAL SQ SCH ×3 (06:06→21:22)
[2022-03-28] MEDS: LEVOTHYROXINE NA 150 MCG TABLET PO SCH (06:06)
[2022-03-28 07:40] LABS: BASO % 0.5 % (0-2.0); EOS % 3.1 % (0-4.5); HEMOGLOBIN 10.2 GM/dL (10.7-15.3); LYMPH % 38.3 % (8-40); MCH 30.6 pg (25.7-33.7); MEAN CELL VOLUME 92.6 fl (80-96); MEAN PLT VOLUME 11.8 fl (7.5-11.1); MONO % 14.6 % (3.8-10.2); NEUT % 43.5 % (42.8-82.8); PLATELET COUNT 99 10^3/uL (134-434); RBC 3.35 M/mm3 (3.60-5.2); RDW 16.6 % (11.6-15.6); WHITE BLOOD COUNT 5.7 K/mm3 (4.0-10.0)
[2022-03-28 08:24] LABS: CALCIUM 8.8 mg/dL (8.5-10.1)
[2022-03-28 08:25] LABS: ALBUMIN 3.2 g/dl (3.4-5.0); MAGNESIUM 2.1 mg/dL (1.8-2.4)
[2022-03-28 08:28] LABS: CREATININE 1.8 mg/dL (0.55-1.3)
[2022-03-28 08:29] LABS: TOT PROT 6.1 g/dl (6.4-8.2)
[2022-03-28 08:30] LABS: BILIRUBIN,TOTAL 0.6 mg/dL (0.2-1)
[2022-03-28] MEDS: metoPROLOL SUCCINATE 25 MG TAB.SR.24H (FP) PO SCH (10:20)
[2022-03-28 10:27] LABS: PH,URINE 5.5 (5.0-8.0); URINE APPEARANCE CLEAR; URINE BILIRUBIN NEGATIVE (NEGATIVE); URINE COLOR YELLOW; URINE GLUCOSE (UA) NEGATIVE (NEGATIVE); URINE KETONE NEGATIVE (NEGATIVE); URINE LEUK ESTERASE NEGATIVE (NEGATIVE); URINE NITRITE NEGATIVE (NEGATIVE); URINE PROTEIN NEGATIVE (NEGATIVE); URINE UROBILINOGEN 0.2 mg/dL (0.2-1.0)
[2022-03-28] MEDS: POLYETHYLENE GLYCOL (HEALTHYLAX) 3350 17 GM PACKET PO SCH (11:00)
[2022-03-28] MEDS: ATORVASTATIN CA 80 MG TABLET (FP) PO SCH (21:22)
[2022-03-28] MEDS: LACTATED RINGERS SOLUTION 1,000 ML/1,000 ML INFUS.BAG IV SCH (21:23)
[2022-03-29] MEDS: HEPARIN NA (PORCINE) 5,000 UNITS/ML 1ML VIAL SQ SCH ×3 (06:39→21:46)
[2022-03-29] MEDS: LEVOTHYROXINE NA 150 MCG TABLET PO SCH (06:40)
[2022-03-29] MEDS: POLYETHYLENE GLYCOL (HEALTHYLAX) 3350 17 GM PACKET PO SCH (10:55)
[2022-03-29] MEDS: metoPROLOL SUCCINATE 25 MG TAB.SR.24H (FP) PO SCH (10:55)
[2022-03-29] MEDS: HALOPERIDOL 0.5 MG TABLET PO PRN (18:28)
[2022-03-29] MEDS: ATORVASTATIN CA 80 MG TABLET (FP) PO SCH (21:46)
[2022-03-29] MEDS: LACTATED RINGERS SOLUTION 1,000 ML/1,000 ML INFUS.BAG IV SCH (21:46)
[2022-03-30] MEDS ORDERED: HALOPERIDOL LACTATE 5 MG/ML IM ONE (00:41)
[2022-03-30] MEDS: HEPARIN NA (PORCINE) 5,000 UNITS/ML 1ML VIAL SQ SCH ×3 (06:09→22:14)
[2022-03-30] MEDS: LEVOTHYROXINE NA 150 MCG TABLET PO SCH (06:10)
[2022-03-30 07:09] LABS: BASO % 0.4 % (0-2.0); EOS % 2.2 % (0-4.5); HEMATOCRIT 31.2 % (32.4-45.2); HEMOGLOBIN 10.5 GM/dL (10.7-15.3); LYMPH % 27.5 % (8-40); MCH 31.2 pg (25.7-33.7); MCHC 33.8 g/dl (32.0-36.0); MEAN CELL VOLUME 92.2 fl (80-96); MEAN PLT VOLUME 11.2 fl (7.5-11.1); NEUT % 58.9 % (42.8-82.8); PLATELET COUNT 108 10^3/uL (134-434); RBC 3.38 M/mm3 (3.60-5.2); RDW 16.4 % (11.6-15.6); WHITE BLOOD COUNT 6.7 K/mm3 (4.0-10.0)
[2022-03-30 07:30] LABS: CALCIUM 9.2 mg/dL (8.5-10.1)
[2022-03-30 07:31] LABS: BLOOD UREA NITROGEN 45.3 mg/dL (7-18)
[2022-03-30 07:33] LABS: CREATININE 1.6 mg/dL (0.55-1.3)
[2022-03-30] MEDS: POLYETHYLENE GLYCOL (HEALTHYLAX) 3350 17 GM PACKET PO SCH (10:18)
[2022-03-30] MEDS: metoPROLOL SUCCINATE 25 MG TAB.SR.24H (FP) PO SCH (10:18)
[2022-03-30] MEDS: HALOPERIDOL 0.5 MG TABLET PO SCH (16:51)
[2022-03-30] MEDS: ATORVASTATIN CA 80 MG TABLET (FP) PO SCH (22:14)
[2022-03-31] MEDS ORDERED: POLYETHYLENE GLYCOL (HEALTHYLAX) 3350 17 GM PACKET PO ONE
[2022-03-31] MEDS: HEPARIN NA (PORCINE) 5,000 UNITS/ML 1ML VIAL SQ SCH ×3 (06:03→21:51)
[2022-03-31] MEDS: HALOPERIDOL 0.5 MG TABLET PO SCH ×2 (06:05→15:58)
[2022-03-31] MEDS ORDERED: LEVOTHYROXINE NA 75 MCG TABLET (FP) PO SCH (07:00)
[2022-03-31] MEDS ORDERED: metoPROLOL SUCCINATE 25 MG TAB.SR.24H (FP) PO SCH (10:00)
[2022-03-31 14:57] VITALS: BP 131/69; PULSE 74; RESP 16
[2022-03-31 15:43] VITALS: TEMP 99
[2022-03-31] MEDS ORDERED: ATORVASTATIN CA 80 MG TABLET (FP) PO SCH (22:00)
== END 2022-03-31 21:55 ==
LOC: JER 19:01 → JERBED 03-24 00:13 → INTOOBSV 03-24 00:13 → J4W 03-24 23:45 → J6S 03-31
PROVIDERS: ADMIT Hospitalist; ATTEND Nurse Practitioner Acute Care
PROC: 3E033NZ Introduction of Analgesics, Hypnotics, Sedatives into Peripheral Vein, Percutaneous Approach (ICD-10-PCS; principal; 2022-03-24)
PROC: 3E023GC Introduction of Other Therapeutic Substance into Muscle, Percutaneous Approach (ICD-10-PCS; 2022-03-24)
PROC: 3E033GC Introduction of Other Therapeutic Substance into Peripheral Vein, Percutaneous Approach (ICD-10-PCS; 2022-03-24)
PROC: 3E0337Z Introduction of Electrolytic and Water Balance Substance into Peripheral Vein, Percutaneous Approach (ICD-10-PCS; 2022-03-24)
DX: N17.9 Acute kidney failure, unspecified (principal); E03.9 Hypothyroidism, unspecified; I10 Essential (primary) hypertension; E78.5 Hyperlipidemia, unspecified; Z86.73 Personal history of transient ischemic attack (TIA), and cerebral infarction without residual deficits; R77.8 Other specified abnormalities of plasma proteins; F03.90 Unspecified dementia, unspecified severity, without behavioral disturbance, psychotic disturbance, mood disturbance, and anxiety; F41.9 Anxiety disorder, unspecified; R10.30 Lower abdominal pain, unspecified; R55 Syncope and collapse; R10.9 Unspecified abdominal pain; R42 Dizziness and giddiness; D69.6 Thrombocytopenia, unspecified; Z29.8 Encounter for other specified prophylactic measures; Z29.9 Encounter for prophylactic measures, unspecified; I42.9 Cardiomyopathy, unspecified; I24.8 Other forms of acute ischemic heart disease; K52.9 Noninfective gastroenteritis and colitis, unspecified
CPT/HCPCS: 36415; 70450-TC; 70551-TC; 74176-TC; 80048; 80053; 80061; 81003; 82607; 82962; 83036; 83605; 83690; 83735; 84100; 84439; 84443; 84484; 85025; 85027; 85610; 85730; 86780; 87086; 93005; 93010; 93306-TC; 96372; 96374; 96375; 97116-GP; 97162-GP; 99285-25; C9803-CS; G0378; J1644; U0003; U0005